=== PATIENT | female | born 1960 | race Caucasian/White ===

== ENCOUNTER 2020-08-12 13:15 | Outpatient (REF) | payer OTHER, SELFPAY ==
--- NOTE | ~2020-08-12 | XR_ITS ---
EXAMINATION: XR ANKLE, RIGHT CLINICAL INFORMATION: Pain COMPARISON: Previous x-ray January 2019 TECHNIQUE: AP, lateral, and mortise views of the right ankle. FINDINGS: There is a transverse fracture through the lateral malleolus. This is similar to January 2019 exam and may represent an ununited old fracture. No other fracture is seen. The ankle mortise is normal. There is lateral soft tissue swelling. There is an ankle joint effusion. There are large calcaneal spurs. XR/XR ankle RT min 3V IMPRESSION: Transverse fracture of the lateral malleolus. This is similar to January 2019 and may represent an ununited fracture. Lateral soft tissue swelling and ankle joint effusion.
== END 2020-08-12 13:16 | disposition home or self-care (01) ==
LOC: HO.HMGCX 13:15
PROVIDERS: PCP Internal Medicine; Visit Provider Hospitalist
DX: M25.571 Pain in right ankle and joints of right foot (principal)
CPT/HCPCS: 73610

== ENCOUNTER 2021-12-23 08:53 | Emergency (ER) | payer OTHER, SELFPAY ==
--- NOTE | ~2021-12-23 | CT_ITS ---
EXAMINATION: CT ABDOMEN AND PELVIS WITHOUT CONTRAST CLINICAL INFORMATION: Right flank pain and hematuria. COMPARISON: Abdomen ultrasound from 09/26/2018. TECHNIQUE: Multidetector volumetric imaging was performed from the superior aspect of the liver through the pubic symphysis. Sagittal and coronal reformatted images were obtained on the technologist's workstation. This CT examination was performed using dose optimization techniques as appropriate, variously including the following: *Automated exposure control *Adjustment of mA and/or kV according to patient size (this includes techniques or standardized protocols for targeted exams where dose is matched to indication/reason for exam; i.e. extremities or head) *Use of iterative reconstruction technique DLP: 569 mGy-cm FINDINGS: LUNG BASES: Normal. No pulmonary consolidation or pleural effusion at either lung base. LIVER: Cirrhotic liver has nodular contour and there is a recanalized paraumbilical vein. No focal liver lesions are identified on this limited noncontrast examination. GALLBLADDER AND BILIARY TREE: Gallbladder is underdistended and contains several stones. No gallbladder wall thickening or pericholecystic fluid. No dilated bile ducts. PANCREAS: Normal for a noncontrast examination. No edema, pancreatic ductal dilatation or mass. SPLEEN: Splenomegaly is present. The spleen measures 16.6 cm craniocaudal. ADRENAL GLANDS: Normal. KIDNEYS AND URETERS: Kidneys are normal in size. 0.2 cm cm calyceal stones in the lower pole of the right kidney. No left-sided renal stones. No hydroureteronephrosis or perinephric edema. BLADDER: A small focus of calcification measuring up to 0.4 cm projects from the right posterior bladder wall at the level of the ureteral orifice. BOWEL AND PERITONEUM: Stomach is unremarkable. No dilated bowel loops. The appendix is normal. Scattered diverticula of the colon without evidence of diverticulitis. No abdominal free fluid or pneumoperitoneum. Minimal haziness of the mesenteric fat in this patient with cirrhosis and varices. ABDOMINAL WALL: Unremarkable. VASCULATURE: Atherosclerotic calcification of the abdominal aorta without aneurysm. No retroperitoneal hematoma. Abdominal varices, including perisplenic varices with spontaneous splenorenal shunt. LYMPH NODES: No pathologic sized lymph nodes in the abdomen or pelvis. No inguinal lymphadenopathy. PELVIC VISCERA: Prostate gland is unremarkable. SKELETAL: Bones are diffusely osteopenic. Degenerative disc disease at L4-L5 (severe loss of disc height, vacuum disc phenomenon, endplate sclerosis and osteophytosis. Mild osteoarthritis of the hips. CT/CT abdomen pelvis wo con IMPRESSION: * Cirrhosis, varices and splenomegaly. * Cholelithiasis without evidence of acute cholecystitis. * Small, 0.2 cm calyceal stones of the lower pole of the right kidney. Also, there is a 0.4 cm stone of the right posterior bladder wall at level of the right ureteral orifice. This could represent a ureterovesical junction stone attempting to pass into the bladder.
[2021-12-23 08:55] VITALS: BP 147/71; PULSE 68; RESP 18; TEMP 37.1; O2SAT 100; BMI 29.7
--- NOTE | 2021-12-23 09:15 | ED.ABDPAIN ---
HPI - Abdominal Pain General Chief Complaint: Urogenital-Female Stated Complaint: back pain, dark red orange urine Time Seen by Provider: 12/23/21 09:09 Source: patient Mode of arrival: ambulatory Limitations: no limitations History of Present Illness MD elicited complaint: flank pain Pertinent past history: kidney stones Onset (ago): week(s) (had episode last week then started again just prior to arrival) Pain Consistency: constant Location: R flank Severity: moderate Quality: stabbing Radiation: RLQ Migration to: no migration Exacerbating factors: nothing Relieving factors: nothing Context: history of similar episodes Associated symptoms: nausea and hematuria Related Data Home Medications Medication Instructions Recorded Confirmed doxycycline hyclate 100 mg tablet 100 mg PO BID 08/12/20 08/12/20 ergocalciferol (vitamin D2) 1,250 1,250 mcg PO QWEEK 08/12/20 08/12/20 mcg (50,000 unit) capsule lisinopril 5 mg tablet 5 mg PO DAILY 08/12/20 08/12/20 nadolol 20 mg tablet 20 mg PO DAILY 08/12/20 08/12/20 Previous Rx's Medication Instructions Recorded ondansetron 4 mg disintegrating 4 mg PO Q8H PRN nausea and 12/23/21 tablet vomiting #20 tabs oxycodone 5 mg tablet 10 mg PO Q6H PRN pain #15 tabs 12/23/21 prednisone 20 mg tablet 20 mg PO DAILY 5 days #5 tabs 12/23/21 tamsulosin 0.4 mg capsule 0.4 mg PO DAILY 5 days #5 caps 12/23/21 Allergies Allergy/AdvReac Type Severity Reaction Status Date / Time vancomycin [VANCOMYCIN] Allergy Intermediate RASH, Unverified 08/12/20 13:08 hives, hives, breathing amoxicillin [AMOXICILLIN] Allergy Unknown UNKNOWN, Unverified 08/12/20 13:08 hives adhesives Allergy Unknown rash Uncoded 08/12/20 13:08 amoxicillin Allergy Unknown hives Uncoded 08/12/20 13:08 Latex Allergy Unknown rash Uncoded 08/12/20 13:08 Review of Systems Review of Systems Constitutional : No Fever, No Chills ENT/Mouth : No sore throat Eyes: No Eye Pain, No Swelling, No Redness Cardiovascular : No Chest Pain, No SOB Respiratory : No Cough, No Sputum, No Wheezing Gastrointestinal : positive Nausea, no Vomiting, No Diarrhea, positive abdominal pain Genitourinary : no Dysuria, no urinary frequency, positive Hematuria, positive Flank Pain, positive hesitancy Musculoskeletal : No joint pain, No Myalgias Skin : No Skin Lesions, No rash Neuro : No Weakness, No Numbness, No Headache Psych : No Anxiety/Panic, No Depression Heme/Lymph: No Bruising, No Lymphadenopathy Endocrine : No Polyuria, No Polydipsia All other systems reviewed and are negative [facility] Past Medical History Attestation statement: The following information was validated with the patient. Medical History (Updated 12/23/21 @ 11:28 by Sabrina Abel DO) Cirrhosis Diabetes Hypertension Kidney stones Surgical History (Updated 12/23/21 @ 09:40 by Sabrina Abel DO) H/O: hysterectomy Hx of cholecystectomy Social History Social History (Updated 12/23/21 @ 09:39 by Sabrina Abel DO) Alcohol intake: never Patient Tobacco Use Status: Never used Tobacco Advance Directives: No Advance Directives Information Provided: No Physical Exam ED Vital Signs: Vital Signs - 24 hr 12/23/21 08:55 12/23/21 10:15 Temperature 98.7 F Pulse Rate 68 67 Respiratory Rate 18 16 Blood Pressure 147/71 H 135/75 Pulse Oximetry 100 99 Oxygen Delivery Method Room Air Room Air BMI result Body Mass Index 29.7 Appearance: Alert. Oriented X3. No acute distress. Eyes: Pupils equal, round and reactive to light. ENT: Pharynx normal. Neck: Normal inspection. Neck supple. CVS: Normal heart rate and rhythm. Pulses normal. Respiratory: No respiratory distress. Breath sounds normal. Abdomen: Soft and mild R sided CVA ttp Skin: Skin warm and dry. Normal skin color. Normal skin turgor. Extremities: No lower extremity edema. No calf ttp Neuro: Oriented X 3. No motor deficit. No sensory deficit. Course Course Course Narrative: R sided 4mm UVJ stone no vomiting, pain well controlled, will start on steroids 20mg, flomax, PO pain medications anticipate she will pass this at home Cr normal MDM - Abdominal Pain MDM Narrative Medical decision making narrative: 61 yo female with hx of RUSH cirrhosis, DM, HTN, kidney stones but not for 10 years comes in with R flank pain and hematuria at this time feels like kidney stones to patient will obtain labs, UA, IV morphine for pain, CT scan for renal colic. Dispo per results and findings. Lab Data Result diagrams: 12/23/21 09:44 12/23/21 09:44 Labs: Lab Results 12/23/21 12/23/21 12/23/21 Range/Units 09:44 09:44 09:44 WBC 3.1 L (4.8-10.8) X10*3/uL RBC 4.24 (4.20-5.50) X10*6/uL Hgb 13.1 (12.0-16.0) g/dl Hct 37.4 (37.0-47.0) % MCV 88.2 (80.0-98.0) fL MCH 30.9 (27.0-33.0) pg MCHC 35.0 (31.0-35.0) g/dl RDW 13.9 (11.0-16.0) % Plt Count 63 L (160-400) X10*3/uL MPV 10.5 (9.4-12.3) fL Immature Gran % (Auto) 0.3 (0.0-0.4) % Neut % (Auto) 56.3 (45-73) % Lymph % (Auto) 28.4 (20-40) % [place] % (Auto) 10.1 (2-11) % Eos % (Auto) 3.9 (0-4) % Baso % (Auto) 1.0 (0-2) % Lymph # (Auto) 0.9 L (1.2-4.9) X10*3/uL [place] # (Auto) 0.3 (0.1-1.2) X10*3/uL Eos # (Auto) 0.1 (0.0-0.4) X10*3/uL Baso # (Auto) 0.0 (0.0-0.2) X10*3/uL Abs Immat Gran (auto) 0.01 (0.00-0.03) X10*3/uL Absolute Neuts (auto) 1.7 L (2.0-8.3) x10*3/uL Absolute Nucleated RBC 0.000 (0.0-0.012) X10*3/uL Nucleated RBC % (auto) 0.0 (0.0-0.2) /100WBC Sodium 137 (135-145) mmol/L Potassium 3.9 (3.3-5.1) mmol/L Chloride 104 (96-108) mmol/L Carbon Dioxide 26 (22-29) mmol/L Anion Gap 11 L (12-20) BUN 11 (9-16) mg/dL Creatinine 0.72 (0.5-1.4) mg/dL Estim Creat Clear Calc 92.5 Estimated GFR > 60 Random Glucose 214 H (60-115) mg/dL Calcium 8.9 (8.4-10.2) mg/dL Magnesium 1.8 (1.6-2.6) mg/dL Total Bilirubin 2.0 H (0.0-1.0) mg/dL Direct Bilirubin 0.8 H (0.0-0.5) mg/dL AST 36 H (5-31) U/L ALT 19 (0-31) U/L Alkaline Phosphatase 84 (39-117) U/L Total Protein 7.2 (6.5-8.0) g/dL Albumin 3.8 (3.5-5.0) g/dL Lipase 83 H (8-78) U/L Urine Color YELLOW Urine Appearance HAZY Urine pH 6.0 (5.0-8.0) Ur Specific Sadler 1.020 (1.005-1.025) Urine Protein NEG (NEG-TRACE) MG/DL Urine Glucose (UA) NEG (NEG) MG/DL Urine Ketones NEG (NEG) MG/DL Urine Blood 3+ H (NEG) Urine Nitrite NEG (NEG) Ur Leukocyte Esterase NEG (NEG) Urine RBC 10-14 H (0) /HPF Urine WBC 0 (0-4) /HPF Ur Squamous Epith Cells 3+ /LPF Calcium Oxalate Crystal TRACE /LPF Urine Bacteria NONE /LPF Urine Mucus 1+ /LPF Urine Yeast TRACE /HPF Discharge Plan Discharge Clinical Impression: Ureterolithiasis Patient Disposition: Home, Self-Care Instructions: Ureteral Stones (ED) Additional Instructions: return to ED for any worsening symptoms or concerns bili 2.0 today , AST 36 platelets 63 MAKE SURE YOUR DOCTOR MONITORS THESE VALUES WITH YOUR CIRRHOSIS *? Cirrhosis, varices and splenomegaly. *? Cholelithiasis without evidence of acute cholecystitis. *? Small, 0.2 cm calyceal stones of the lower pole of the right kidney. Also, there is a 0.4 cm stone of the right posterior bladder wall at level of the right ureteral orifice. This could represent a ureterovesical junction stone attempting to pass into the bladder. Prescriptions: New prednisone 20 mg tablet 20 mg PO DAILY 5 Days Qty: 5 0RF tamsulosin 0.4 mg capsule 0.4 mg PO DAILY 5 Days Qty: 5 0RF ondansetron 4 mg tablet,disintegrating 4 mg PO Q8H PRN (Reason: nausea and vomiting) Qty: 20 0RF oxycodone 5 mg tablet 10 mg PO Q6H PRN (Reason: pain) Qty: 15 0RF Rx Instructions: Partial Fill upon patient request. can take 1-2 tabs every 6 hours for pain No Action lisinopril 5 mg tablet 5 mg PO DAILY nadolol 20 mg tablet 20 mg PO DAILY doxycycline hyclate 100 mg tablet 100 mg PO BID ergocalciferol (vitamin D2) 1,250 mcg (50,000 unit) capsule 1,250 mcg PO QWEEK Referrals: Gonzalo Currie MD [Physician] - 5 days (if not better) Stand Alone Forms: Work/School Release
[2021-12-23 09:49] LABS: MANUAL DIFF FLAG NO
[2021-12-23 09:50] LABS: Appearance Urine HAZY; Color Urine YELLOW; Glucose Urine UA NEG (NEG); Leukocyte Esterase Urine NEG (NEG); Nitrite Urine NEG (NEG); UACC Culture Trigger NO; Urine Blood 3+ (NEG); Urine Ketones NEG (NEG); Urine Protein NEG (NEG-TRACE)
[2021-12-23 09:53] LABS: Eosinophils Absolute Auto 0.1 X10*3/uL (0.0-0.4); Eosinophils Percent Auto 3.9 % (0-4); Hematocrit 37.4 % (37.0-47.0); Hemoglobin 13.1 g/dl (12.0-16.0); Imm Gran Abs Auto 0.01 X10*3/uL (0.00-0.03); Imm Gran Pct Auto 0.3 % (0.0-0.4); Lymphocytes Absolute Auto 0.9 X10*3/uL (1.2-4.9); Lymphocytes Percent Auto 28.4 % (20-40); Mean Corpuscular Hemoglobin 30.9 pg (27.0-33.0); Mean Corpuscular Volume 88.2 fL (80.0-98.0); Mean Platelet Volume 10.5 fL (9.4-12.3); Monocytes Absolute Auto 0.3 X10*3/uL (0.1-1.2); Monocytes Percent Auto 10.1 % (2-11); Neutrophils Absolute Auto 1.7 x10*3/uL (2.0-8.3); Neutrophils Percent Auto 56.3 % (45-73); Red Blood Count 4.24 X10*6/uL (4.20-5.50); Red Cell Distribution Width 13.9 % (11.0-16.0); White Blood Count 3.1 X10*3/uL (4.8-10.8)
[2021-12-23 10:02] LABS: Calcium Oxalate Crystals Urine TRACE /LPF; Mucus Urine 1+ /LPF; Squamous Epithelial Cell Urine 3+ /LPF; WBC Urine 0 /HPF (0-4)
[2021-12-23] MEDS: ondansetron HCL 4 MG/2 ML VIAL IVPUSH (10:04)
[2021-12-23] MEDS: Morphine Sulfate 4 MG/ML CARTRIDGE IVPUSH (10:04)
[2021-12-23] MEDS: 0.9 % Sodium Chloride 1,000 ML 999 ML IVCONT (10:08)
[2021-12-23 10:15] VITALS: BP 135/75; PULSE 67; RESP 16; O2SAT 99
[2021-12-23 10:15] LABS: Alanine Aminotransferase 19 U/L (0-31); Albumin Level 3.8 g/dL (3.5-5.0); Alkaline Phosphatase 84 U/L (39-117); Anion Gap 11 (12-20); Aspartate Amino Transferase 36 U/L (5-31); Bilirubin Direct 0.8 mg/dL (0.0-0.5); Blood Urea Nitrogen 11 mg/dL (9-16); Calcium 8.9 mg/dL (8.4-10.2); Carbon Dioxide 26 mmol/L (22-29); Chloride 104 mmol/L (96-108); Creatinine Clr Calc Pharmacy 92.5; Estimated Glomerular Filt Rate > 60; Glucose Random 214 mg/dL (60-115); Lipase 83 U/L (8-78); Magnesium 1.8 mg/dL (1.6-2.6); Platelet Count 63 X10*3/uL (160-400); Potassium 3.9 mmol/L (3.3-5.1); Sodium 137 mmol/L (135-145); Total Protein 7.2 g/dL (6.5-8.0)
--- NOTE | 2021-12-23 10:34 | PC.NURSE ---
Pt resting comfortably. 20 gauge IV started in left antecubital. Meds given as ordered. Waiting on test results and patients needs are being met.
[2021-12-23] MEDS: HYDROmorphone HCl 1 MG/ML SYRINGE IVPUSH (10:44)
[2021-12-23] MEDS: Tamsulosin HCL 0.4 MG CAPSULE PO (11:39)
== END 2021-12-23 12:07 | disposition home or self-care (01) ==
PROVIDERS: Emergency Provider Emergency Medicine; PCP Internal Medicine
DX: N20.1 Calculus of ureter (principal); M54.50 Low back pain, unspecified; R31.9 Hematuria, unspecified; R10.31 Right lower quadrant pain; Z79.899 Other long term (current) drug therapy
CPT/HCPCS: 36415; 74176; 80048; 80076; 81001; 83690; 83735; 85025; 96361; 96374; 96375; 99284; J1170; J2270; J2405

== ENCOUNTER 2025-04-26 07:51 | Outpatient (AMB) | payer MEDICARE, SELFPAY ==
--- OUTSIDE RECORDS SUMMARY | 2022-03-24 11:03 | XMS_ITS | Encounter Summary ---
Author Organization [facility] Address [address] [place] [phone] Phone Care Team Providers Care Hr Manager Name Role Phone Chaparro Alvarez MD Primary Care Provider [phone] Adam Sánchez MD Unavailable [phone] Jose Daniel Castellanos MD Unavailable [phone] Encounter Details Date Type Department Care Team (Late st Contact Info) Description 03/24/2022 11:03 AM EDT Hospital Encounter [facility] [address] [place] [address] Cristiana Mcdonald FNP [address] [place] [address] [email or web address] Social History Tobacco Use Types Packs/Day Years [...] high school, GED, job training, learning the Urdu language, technical skills, or developing parenting skills)? [...] Description 05/21/2025 11:00 AM EST Office Visit [facility] Internal Medicine [address] [place] [address] Chaparro Alvarez MD [address] [place] [address] [email or web address] documented as of this encounter Procedures Procedure [...] IMPRESSION: No displaced rib fracture. Cristiana Mcdonald DRILLER'S ASSISTANT IMG XR CHEST Final Resul t documented in this encounter Visit Diagnoses Not on filedocumented in this encounter Additional Health Concerns Infection Onset Date Last Indicated Resolved Time MRSA 03/21/2020 12/25/2020 12/25/2022 1:22 AM EDT Assessment Noted Time PHQ-2 Depression Total Score: 0 08/22/19 10:10 AM EST documented as of this encounter Care Teams Hr Manager Relationship Specialty Start Date End Date Chaparro Alvarez MD [address] [place] [address] [email or web address] PCP - General Internal Medicine 10/06/19 03/29/25 Adam Sánchez MD [address] [place] [phone] Internal Medicine 04/18/20 08/30/22 Jose Daniel Castellanos MD [address] [place] [id number] [email or web address] Otolaryngology 04/18/20 documented as of this encounter Additional Source Comments The information contained in this document represents components of the legal health record. It is not the complete legal health record.[facility]
--- NOTE | 2025-04-26 07:53 | MHC.PC.OV ---
Vital Signs 04/26/25 08:03 Height 5 ft 7.5 in Weight 175 lb BMI 27.0 BP 111/54 L Blood Pressure Location Lt brachial Position Sitting Respiration 16 Pulse 67 Pulse Source Pulse Oximeter Temp 97.5 F Temp Source Oral Pulse Oximetry (%) 100 Oxygen Delivery Method Room Air Intake Visit Reasons: CPE Intake Note: patient here for new patient visit requesting a CPE Conference Specialist Required: No Is last menstrual period known: No Post menopausal: No Patient : No Allergies vancomycin (VANCOMYCIN) Allergy (Intermediate, Unverified 04/26/25 08:21) RASH, hives, hives, breathing amoxicillin (AMOXICILLIN) Allergy (Unknown, Unverified 04/26/25 08:21) UNKNOWN, hives adhesives Allergy (Unknown, Uncoded 04/26/25 08:21) rash amoxicillin Allergy (Unknown, Uncoded 04/26/25 08:21) hives Latex Allergy (Unknown, Uncoded 04/26/25 08:21) rash Medication List - Last Reviewed 04/26/25 by SUDHIR Sherman syvpptwzfp-upsebyczxufra-lpbu 50-325-40 mg 1 tab PO Q6H PRN carvedilol 6.25 mg PO BID lisinopril 5 mg PO DAILY lorazepam 0.5 - 1 mg PO metformin ER 1,000 mg PO QPM onabotulinumtoxinA (Botox) units subcut Tobacco use date assessed: 04/26/25 Fall risk assessment: No Falls in past year Last assessed Fall Risk: 04/26/25 Dental Screening Dental Screen Date: 04/26/25 Did you have a dental visit in the last 12 months?: Yes Did you have a dental problem in the last 6 months where you did not have access to dental care?: No Was dental information given to patient?: Patient has dentist HPI HPI Comments History of Present Illness Details 65 y/o F with cirrhosis, varices, splenomegaly, HTN, DM2, nephrolithiasis, CAD, osteopenia, r knee OA SurgHx: hysterectomy, christy, 3 sinus surgeries to fix chronic sinusitis FHx: Dad alive SocHx: , 2 children, and 2 grandchildren, Retired Health Maintenance: See scanned preventative medicine assessment with personalized health plan and screening schedule. Colon: Mammo DEXA PAP Vaccines: UTD on all Specialists: [facility] GI visits q6mo with imaging Dr Gonz[facility] Be[facility] History of Present Illness The patient is a 65-year-old female presenting with the establishment of care, evaluation of edema, and fatigue. Previous PCP Dr Alvarez, limited MR avail and reviewed Edema: - Recent leg swelling for 3-4 weeks. - Predominantly lower limbs, left worse. - Prior connection to liver disease. Worse on the left Better since onset w/o intervention Denies Sob or Chest pain Next GI appt 05/23/25 Fatigue: - Constant tiredness, worsens with activity. - No snoring or sleep apnea. - Non-refreshing sleep. - High activity and stress load. Migraine: - Managed with Botox and Fioricet. - Multiple past medications. Nonalcoholic Fatty Liver Disease: - Managed biannually with Dr. Sánchez. - No current pain. Chronic Sinusitis: - Past surgeries, discontinued nasal rinse. underwent 3 surgeries; ff'd by [facility]. Due for f/u appt. Missed last week appt. Esophageal Varices: - Found on endoscopy, treated with carvedilol. Hypertension: - Controlled with lisinopril Diabetes Mellitus: - A1c 5.2%, on metformin. Possible Osteoarthritis, R knee : - Relief from cortisone previously, complaints of knee pain. Review of Systems - Cardiovascular: Reports swelling in legs. - Respiratory: Denies shortness of breath. - Gastrointestinal: Denies abdominal pain. - Neurological: Reports fatigue, denies palpitations, denies snoring. - Musculoskeletal: Reports knee pain. - HEENT: Reports chronic sinusitis, ear fluid. - Endocrine: Denies thyroid issues. - General: Reports tiredness, denies feeling refreshed after sleeping. Physical Exam Awake alert NAD Scleras nonicteric bilat 2/6 murmur, irregular LS CTAB Abd soft, nontender Edema BLE +1 bilat, worse on the L, + PP Verrucous growth L knee Mood and affect appropriate Diagnostic results EKG NSR with PVC prolonged QT/QtC 484/507ms Labs from today show WBC of 3.7, RBC 4.02, platelet count 71, chloride 111, anion gap of 8, BUN 8 creatinine 0.54, normal Mag and phos, total bilirubin 2.5, AST 32, total protein 6.4, albumin 3.2, LDL 108, 12 normal, vitamin-D 18.9 The anion gap is falsely low given her low albumin. Discussion Notes During this visit, we discussed the patient's presenting symptoms of edema and fatigue. I explained the potential causes of edema, particularly given her history of cirrhosis, which can cause peripheral swelling. We discussed the need for a possible diuretic due to the leg swelling but emphasized getting an echocardiogram, since liver and heart issues can interconnect, affecting the fluid status. I also discussed the potential consideration of sleep apnea contributing to her fatigue and proposed a home sleep study to assess sleep quality. We emphasized the importance of blood tests to check CBC, iron levels, and thyroid function to rule out anemia or other metabolic concerns. We agreed on obtaining a dermatological evaluation for skin lesions she was concerned about. We reviewed current management plans for her listed chronic conditions, ensured her comfort with medication regimens, and confirmed she had no immediate medication refill needs; however, updates in prescription management were made under my name for future referencing convenience. Follow-up and testing plans were acknowledged, pending results. Patient was given time to ask questions. All questions were answered to their satisfaction. Assessment and Plan 1. Edema - Spironoalactone 25mg QD x 14 days w/ repeat labs in 2 weeks - Echocardiogram ordered. 2. Fatigue - CBC, iron, thyroid tests ordered. - Home sleep study recommended. 3. Cirrhosis/NAFLD - Continue liver management with regular scans. I have requested GI records 4. Chronic Sinusitis - ENT follow-up; 5. Migraine - Continue current treatment. 6. Esophageal Varices - Maintain carvedilol treatment. 7. Hypertension - Continue lisinopril. 8. Type 2 Diabetes Mellitus - Maintain metformin. Patient Instructions - Complete labs as scheduled. - Attend follow-up for echocardiogram. - Await call to schedule the sleep study and follow instructions of the test. - Contact your primary care office if symptoms worsen. - Continue prescribed medications as discussed. - RTO in 2 weeks for close fu, labs to be done the day before. If chest pain or worsening of condition, advised to seek care in the ED. 1445 Pt called after the visit w the labs and the treatment plan. All questions answered. Consent Patient was informed and verbally consented to the use of an ambient scribe for clinic note documentation during this visit. Total time spent caring for the patient today was 60 minutes. This includes time spent before the visit reviewing the chart, time spent during the visit, and time spent after the visit on documentation, reviewing laboratory results, diagnostic imaging, medications, performing a medically necessary evaluation, counseling on diagnoses, care coordination, ordering appropriate tests, ordering appropriate medications, review of tests performed by other providers, reporting test results with the patient, communication with other healthcare providers. [facility] Medical History (Updated 04/26/25 @ 09:10 by Pamela Casper [facility]) Cirrhosis Diabetes Hx of migraine headaches Hypertension Kidney stones Osteoporosis Surgical History (Updated 04/26/25 @ 08:09 by SUDHIR Sherman) H/O: hysterectomy History of carpal tunnel surgery of left wrist History of carpal tunnel surgery of right wrist Hx of cholecystectomy Family History (Updated 04/26/25 @ 08:11 by SUDHIR Sherman) Mother Breast cancer Sister Breast cancer Social History (Updated 04/26/25 @ 08:03 by SUDHIR Sherman) Housing: Apartment Alcohol intake: never Patient Tobacco Use Status: Never used Tobacco e-Cigarette/Vaping Use: Never Used Second Hand Smoke Exposure: No service: No Current occupational status: retired Current occupational exposures/hazards: No Cognitive needs: No Hearing needs: No Vision needs: Yes Questionnaire PHQ-9 Over the last 2 weeks, how often have you been bothered by any of the following problems? 1. Little interest or pleasure in doing things: not at all 2. Feeling down, depressed, or hopeless: not at all 3. Trouble falling or staying asleep, or sleeping too much: not at all 4. Feeling tired or having little energy: not at all 5. Poor appetite or overeating: not at all 6. Feeling bad about yourself - or that you are a failure or have let yourself or your family down: not at all 7. Trouble concentrating on things, such as reading the newspaper or watching television: not at all 8. Moving or speaking so slowly that other people could have noticed. Or the opposite - being so fidgety or restless that you have been moving around a lot more than usual: not at all 9. Thoughts that you would be better off or of hurting yourself in some way: not at all Total score: 0 Depression Screening Interpretation: Negative Depression Screening Done: Yes 00655 - PHQ-9 Billing: Yes Source: Developed by Drs. Jose Daniel Castorena, Joshua Covington and colleagues, with an educational soham from [employer]. Thrive Questionnaire Date Thrive assessed: 04/26/25 I am a: Patient What is your living situation today?: I have a steady place to live Within the past 12 months, did the food you bought not last and you didn't have the money to get more?: Never true Within the past 12 months, did you worry whether your food would run out before you got money to buy more?: Never true Do you have trouble paying for medicines?: No Do you have trouble getting transportation to medical appointments?: No Do you have trouble paying your heating and electricity bill?: No Do you have trouble taking care of your child, family member or friend?: No Do you have trouble with day-to-day activities such as bathing, preparing meals, shopping, managing finances, etc.?: No Are you currently unemployed and looking for a job?: No Are you interested in more education?: No Please select the resources that you would like help with: None Currently or been in a relationship where the following occur: No concerns reported THRIVE Score: 0 AUDIT C Alcohol Use Questionnaire (AUDIT-C) 1. How often do you have a drink containing alcohol?: Never 3. How often do you have six or more drinks on one occasion?: Never Total Score: 0 Score Reviewed/Action Taken: Yes SELAM-7 AMB Questionnaire SELAM-7 Date SELAM - 7 assessed: 04/26/25 Feeling nervous, anxious, or on edge: 0 = Not at all Not being able to stop or control worryin = Not at all Worrying too much about different things: 0 = Not at all Trouble relaxin = Not at all Being so restless that it is hard to sit still: 0 = Not at all Becoming easily annoyed or irritable: 0 = Not at all Feeling afraid as if something awful might happen: 0 = Not at all Total SELAM-7 score (0-4 normal; 5-9 mild; 10-14 moderate; 15-21 severe): 0 Source: Developed by Natalya Snyder Kurt Kroenke and colleagues, with an educational soham from [employer]. SELAM-7 Assessment Billing SELAM-7 Assessment Tool: SELAM-7 Assessment 38893 Physical exam (Primary Care) Vital Signs: Last Vital Signs Temp 97.5 F 04/26/25 08:03 Pulse 67 04/26/25 08:03 Resp 16 04/26/25 08:03 BP 111/54 L 04/26/25 08:03 Pulse Ox 100 04/26/25 08:03 Oxygen Delivery Method Room Air 04/26/25 08:03 BMI result Body Mass Index 27.0 Tobacco/Smoking Status: Tobacco use Status Tobacco use date assessed 04/26/25 04/26/25 08:03 Patient Tobacco Use Status Never used Tobacco 04/26/25 08:03 e-Cigarette/Vaping Use Never Used 04/26/25 08:03 PHQ-9: PHQ-9 Score PHQ-9: Total score 0 04/26/25 09:17 Depression Screening Interpretation: Negative Thrive Assessment: Date of Thrive Assessment Date Thrive assessed 04/26/25 04/26/25 07:56 Currently or been in a relationship where the following occur: No concerns reported Office Procedures EKG 82021-Ogbbckmxblwmnjqrh, Complete Results AMB Hemoglobin A1c AMB Hemoglobin A1c 5.1 % Last Edit by SUDHIR Sherman on 04/26/25 08:32 Results Reviewed Results Reviewed: Laboratory Last Values Hgb A1c (Clinic) 5.1 % (4.0-6.0) 04/26/25 08:30 Coding Level of Care Code New Pt Level 5 (35583) Complex EM visit Add On G2211 Diagnoses Encounter to establish care Z76.89 Type 2 diabetes mellitus without complication, without long-term current use of insulin E11.9 Diabetes mellitus complication status: without complication Diabetes mellitus jail insulin use: without jail use Heart murmur R01.1 Heart palpitations R00.2 Cirrhosis of liver without ascites, unspecified hepatic cirrhosis type K74.60 Ascites presence: without ascites Hepatic cirrhosis type: unspecified hepatic cirrhosis Swelling of both lower extremities M79.89 Fatigue R53.83 Hypersomnia G47.10 CPT Codes EKG - CPT: 02837-Iwehnqkxpcifpbfnr, Complete ([id number]) Additional Codes SELAM-7 Assessment Billing - SELAM-7 Assessment Tool: SELAM-7 Assessment 21557 ([id number]) PHQ-9 - 18310 - PHQ-9 Billing: Yes ([id number]) Assessment & Plan Assessment & Plan (1) Encounter to establish care: Code(s): Z76.89 - Persons encountering health services in other specified circumstances (2) DM2 (diabetes mellitus, type 2): Code(s): E11.9 - Type 2 diabetes mellitus without complications Category: Medical Qualifiers: Diabetes mellitus complication status: without complication Diabetes mellitus morals squad police officer insulin use: without morals squad police officer use Qualified Code(s): E11.9 - Type 2 diabetes mellitus without complications (3) Heart murmur: Code(s): R01.1 - Cardiac murmur, unspecified Category: Medical (4) Heart palpitations: Code(s): R00.2 - Palpitations Category: Medical (5) Cirrhosis: Comment: RUSH Code(s): K74.60 - Unspecified cirrhosis of liver Category: Medical Qualifiers: Ascites presence: without ascites Hepatic cirrhosis type: unspecified hepatic cirrhosis Qualified Code(s): K74.60 - Unspecified cirrhosis of liver (6) Swelling of both lower extremities: Code(s): M79.89 - Other specified soft tissue disorders Category: Medical (7) Fatigue: Code(s): R53.83 - Other fatigue Category: Medical (8) Hypersomnia: Code(s): G47.10 - Hypersomnia, unspecified Category: Medical Plan . Orders: Orders Vitamin B12 and Folate Today E11.9 - Type 2 diabetes mellitus without complications, I25.10 - Atherosclerotic heart disease of upper [place] coronary artery without angina pectoris, I86.8 - Varicose veins of other specified sites, K74.60 - Unspecified cirrhosis of liver, M85.80 - Other specified disorders of bone density and structure, unspecified site Magnesium Today R94.31 - Abnormal electrocardiogram [ECG] [EKG] Phosphorus Today R94.31 - Abnormal electrocardiogram [ECG] [EKG] AMB Hemoglobin A1c Today E11.9 - Type 2 diabetes mellitus without complications Complete Blood Count no Diff Today E11.9 - Type 2 diabetes mellitus without complications, I25.10 - Atherosclerotic heart disease of [place] coronary artery without angina pectoris, I86.8 - Varicose veins of other specified sites, K74.60 - Unspecified cirrhosis of liver, M85.80 - Other specified disorders of bone density and structure, unspecified site Comprehensive Met. Panel Today E11.9 - Type 2 diabetes mellitus without complications, I25.10 - Atherosclerotic heart disease of [place] coronary artery without angina pectoris, I86.8 - Varicose veins of other specified sites, K74.60 - Unspecified cirrhosis of liver, M85.80 - Other specified disorders of bone density and structure, unspecified site Lipid Panel Today E11.9 - Type 2 diabetes mellitus without complications, I25.10 - Atherosclerotic heart disease of [place] coronary artery without angina pectoris, I86.8 - Varicose veins of other specified sites, K74.60 - Unspecified cirrhosis of liver, M85.80 - Other specified disorders of bone density and structure, unspecified site Microalbumin, Random (w Creat) Today E11.9 - Type 2 diabetes mellitus without complications, I25.10 - Atherosclerotic heart disease of [place] coronary artery without angina pectoris, I86.8 - Varicose veins of other specified sites, K74.60 - Unspecified cirrhosis of liver, M85.80 - Other specified disorders of bone density and structure, unspecified site TSH reflex Free T4 Today E11.9 - Type 2 diabetes mellitus without complications, I25.10 - Atherosclerotic heart disease of [place] coronary artery without angina pectoris, I86.8 - Varicose veins of other specified sites, K74.60 - Unspecified cirrhosis of liver, M85.80 - Other specified disorders of bone density and structure, unspecified site Vitamin D 25-OH Total Today E11.9 - Type 2 diabetes mellitus without complications, I25.10 - Atherosclerotic heart disease of [place] coronary artery without angina pectoris, I86.8 - Varicose veins of other specified sites, K74.60 - Unspecified cirrhosis of liver, M85.80 - Other specified disorders of bone density and structure, unspecified site CA echo transthoracic complete Today M79.89 - Other specified soft tissue disorders Ferritin Today R53.83 - Other fatigue IRON PROFILE Today R53.83 - Other fatigue RT home sleep study Today G47.10 - Hypersomnia, unspecified, R06.83 - Snoring Medications: New metformin ER 1,000 mg (2 x 500 mg) PO QPM 180 tabs 2RF lisinopril 5 mg PO DAILY 90 tabs 2RF Patient Instructions: Walk-In Care (Urgent Care): We Make it Easy Walk-in for urgent medical issues such as: ? Seasonal Allergies ? Insect Bites ? Cough ? Diarrhea ? Acute Asthma Attacks ? Back, Knee or Joint Pain ? Ear Infection ? Fever without a Rash ? Headaches ? Nausea ? Tulsita Eye, Rash or Skin Irritation ? Sore Throat ? Sports Physicals ? Vomiting Most insurances are accepted. Patients do not need to be part of the [facility] to seek care at the walk-in clinic. Locations [address] [place] [address] Open Wednesday through Wednesday 8am-5pm *Hours may vary due to staffing availability. To confirm Walk-In Care hours please call. [address] [facility] , [place] [address] ? [phone] [facility] in [place] provides services to ages 18 and over. Open Wednesday-Wednesday: 7 a.m. to 5 p.m. and Wednesday: 9 a.m. to 3 p.m.* *Hours may vary due to staffing availability. To confirm Walk-In Care hours in [place], please call [phone]. [address] [place] [address] ? [phone] [facility] in [place] provides services to ages 12 and over. Open Wednesday-Wednesday: 8 a.m. to 5 p.m. Hours may vary due to staffing availability. To confirm Walk-In Care hours in [place], please call [phone]. LABORATORY SERVICES: [facility] Lab ? Primary Location [address] [place] [address] Wednesday through Wednesday 6:00 AM ? 5:00 PM Wednesday 7:00 AM ? 11:00 AM* [phone] The [facility] Lab is centrally located near the front entrance of the [facility] for easy outpatient access. Convenient parking is provided for outpatients. *Hours may vary due to staffing availability. To confirm Laboratory hours for any location, please call [phone]. Offsite Location For your convenience, we offer offsite laboratory draw stations at the following locations: [address] [place] [address] ? [facility] [address], [address] Wednesday through Wednesday 7:30 AM ? 1:00 PM* [phone] *Hours may vary due to staffing availability. To confirm Laboratory hours for any location, please call [phone]. [place] ? [address] Wednesday through Wednesday 6:00 AM ? 3:30 PM* Wednesday 6:30 AM ? 3 PM* [phone] *Hours may vary due to staffing availability. To confirm Laboratory hours for any location, please call [phone]. [address] [facility] Wednesday through Wednesday 7:30 AM ? 4:00 PM* [phone] *Hours may vary due to staffing availability. To confirm Laboratory hours for any location, please call [phone]. [address] [facility] Wednesday through 9:00 AM ? 4:00 PM* *Hours may vary due to staffing availability. To confirm Laboratory hours for any location, please call [phone]. Appointments are not necessary. Walk-ins are welcome. Like all the departments throughout the [facility], our Lab undergoes frequent reviews to ensure the quality and accuracy of test results, and our staff takes special pride in its status as a nationally accredited facility. Patient Portal: [facility] ONE PATIENT. ONE RECORD. BETTER CARE. [facility] has a fully integrated, cutting-edge mobile electronic health information system that has revolutionized the way we care for our patients and manage our organization. This system improves communication and coordination enabling us to provide safe, higher-quality care, and an overall positive experience for staff and patients. Our first priority, as always, is to deliver the highest quality care possible. The system is running in the background supporting that priority. This portal is for all [facility] services and practices. If you are experiencing any technical difficulties with enrolling or logging into the Patient Portal please complete the [facility] Patient Portal Technical Support Form. [facility] now offers a new secure on-line interactive tool for patients to review their health information ? ?Patient Portal. This interactive web portal will enable patients and their families to take an active role in their care by providing easy, secure access to their health information via the internet. The Patient Portal provides patients with instant access to their health information, including laboratory results, medications, allergies, demographic information, visit history, and more. In addition to managing their own care, parents and health care proxies with authorized consent will appreciate the ability to access the records of those individuals for whom they provide care. Please note: if you wish to gain access (Proxy) to another patient?s portal, you will be required to come to the Medical Records Department in person at [facility]. Both the patient giving proxy access and the proxy will need to provide photo identification and complete the appropriate authorization. The Patient Portal also allows track their appointments online. The [facility] Patient Portal also saves patients time by allowing them to submit updates to their demographic and contact information prior to their visits. Portal email notifications will also alert patients to any new activity on their portal, such as test results and new appointments. In order to initially enroll in the [facility] Patient Portal, you will need to enter some required information including the following: your [facility] Medical Record number your personal home email address name date of Please note: In order to enroll in the [facility] Patient Portal, we need to have your email address on file in your electronic medical record. ?The email address needs to be specific for one person (yourself) in order for your Portal enrollment to be successful. ?You can update your email address in person with our Registration staff when you are registering for a hospital visit. ?Otherwise, you will need to come to the Health Information Management (Medical Records) Department at [facility]. ?We are open from Wednesday ? Wednesday from 7:30 a.m. ? 4:30 p.m. ?You will be required to present a photo id. Once you have successfully enrolled in the Patient Portal, you will receive a one-time user id and password for the Portal, sent to your email address. ?This will allow you to log into the Patient Portal within 99 hrs and reset your own logon id and password, and define personal security questions. ?Once your permanent login and password have been set, you can log into the [facility] Patient Portal at any time via the blue button above or from the Portal Logon button on any page of the [facility] website. [facility] and [facility] encourage all of our patients to enroll in Patient Portal as it presents a valuable opportunity for patients and their families to actively participate in their care and stay healthy Welcome to [facility]. ?We look forward to working with you.
--- OUTSIDE RECORDS SUMMARY | 2025-04-26 07:54 | XMS_ITS | Encounter Summary ---
Author Organization [facility] Address [address] [place] [address] Phone Care Team Providers Care Director Of Sustainability Name Role Phone Chaparro Alvarez MD Primary Care Provider Adam Sánchez MD Unavailable [phone] Jose Daniel Castellanos MD Unavailable [phone] Adam Sánchez MD Unavailable [phone] Encounter Details Date Type Department Care Team (Late st Contact Info) Description 10/08/2020 Procedure Pass [facility] [address] [place] [address] Social History Tobacco Use Types Packs/Day Years Used Date Smoking Tobacco: Never Smokeless Tobacco: Never Alcohol Use Standard Drinks/Week Comments No 0 (1 standard drink = 0.6 oz pur e alcohol) Comments No Sex and Gender Information Value [...] Description 05/21/2025 11:00 AM EST Office Visit [facility] Internal Medicine [address] [place] [address] Chaparro Alvarez MD [address] [place] [address] documented as of this encounter Visit Diagnoses Not on filedocumented in this encounter Additional Health Concerns Infection Onset Date Last Indicated Resolved Time MRSA 03/21/2020 12/25/2020 12/25/2022 1:22 AM EDT Assessment Noted Time PHQ-2 Depression Total Score: 0 08/16/19 21 8:10 AM EST documented as of this encounter Care Teams Director Of Sustainability Relationship Specialty Start Date End Date Chaparro Alvarez MD [address] [place] [address] PCP - General Internal Medicine 10/06/19 03/29/25 Adam Sánchez MD [address] [place] [phone] Internal Medicine 04/18/20 08/30/22 Jose Daniel Castellanos MD [address] [place] [address] Otolaryngology 04/18/20 Adam Sánchez MD [address] [place] [address] Gastroenterology 08/31/22 documented as of this encounter Additional Source Comments The information contained in this document represents components of the legal health record. It is not the complete legal health record.[facility]
--- OUTSIDE RECORDS SUMMARY | 2025-04-26 07:54 | XMS_ITS | Encounter Summary ---
Author Organization [facility] Address [address] [place] [address] Phone Care Team Providers Care Dermatology Technician Name Role Phone Chaparro Alvarez MD Primary Care Provider [phone] Adam Sánchez MD Unavailable [phone] Jose Daniel Castellanos MD Unavailable [phone] Adam Sánchez MD Unavailable [phone] Encounter Details Date Type Department Care Team (Late st Contact Info) Description 10/21/2020 Procedure Pass [facility] [address] [place] [address] Social History Tobacco Use Types Packs/Day Years [...] Description 05/21/2025 11:00 AM EST Office Visit [facility] Internal Medicine [address] [place], [place] [phone] Chaparro Alvarez MD [address] [place], [place] [phone] documented as of this encounter Visit Diagnoses Not on filedocumented in this encounter Additional Health Concerns Infection Onset Date Last Indicated Resolved Time MRSA 03/21/2020 12/25/2020 12/25/2022 1:22 AM EDT Assessment Noted Time PHQ-2 Depression Total Score: 0 08/16/19 21 8:10 AM EST documented as of this encounter Care Teams Dermatology Technician Relationship Specialty Start Date End Date Chaparro Alvarez MD [address] [place] [address] [email or web address] PCP - General Internal Medicine 10/06/19 03/29/25 Adam Sánchez MD [address] [place] [address] Internal Medicine 04/18/20 08/30/22 Jose Daniel Castellanos MD [address] [place] [address] Otolaryngology 04/18/20 Adam Sánchez MD [address] [place] [address] Gastroenterology 08/31/22 documented as of this encounter Additional Source Comments The information contained in this document represents components of the legal health record. It is not the complete legal health record.[facility]
--- OUTSIDE RECORDS SUMMARY | 2025-04-26 07:54 | XMS_ITS | Encounter Summary ---
Author Organization [facility] Address [address] [place] [address] Phone Care Team Providers Care Mixing Technician Name Role Phone Ajay Glez DO Primary Care Provider [phone] Chaparro Alvarez MD Primary Care Provider [phone] Adam Sánchez MD Unavailable [phone] Jose Daniel Castellanos MD Unavailable [phone] Adam Sánchez MD Unavailable [phone] Encounter Details Date Type Department Care Team (Late st Contact Info) Description 05/25/2019 Procedure Pass OR Admitting Dept - [facility] Department [address] [place] [address] Social History Tobacco Use Types Packs/Day Years [...] Encounters Date Type Department Care Team (Late Contact Info) Description 05/21/2025 11:00 AM EST Office Visit [facility] Internal Medicine [address] [place], [place] [phone] Chaparro Alvarez MD [address] [place], [place] [phone] documented as of this encounter Visit Diagnoses Not on filedocumented in this encounter Additional Health Concerns Infection Onset Date Last Indicated Resolved Time MRSA 03/21/2020 12/25/2020 12/25/2022 1:22 AM EDT documented as of this encounter Care Teams Mixing Technician Relationship Specialty Start Date End Date Ajay Glez DO [address] [place] [address] PCP - General 07/08/17 10/05/19 Chaparro Alvarez MD [address] [place] [address] [email or web address] PCP - General Internal Medicine 10/06/19 03/29/25 Adam Sánchez MD [address] [place] [phone] Internal Medicine 04/18/20 08/30/22 Jose Daniel Castellanos MD [address] [place] [address] Otolaryngology 04/18/20 Adam Sánchez MD [address] [place] [address] Gastroenterology 08/31/22 documented as of this encounter Additional Source Comments The information contained in this document represents components of the legal health record. It is not the complete legal health record.[facility]
--- OUTSIDE RECORDS SUMMARY | 2025-04-26 07:54 | XMS_ITS | Encounter Summary ---
Author Organization [facility] Address [address] [place] [address] Phone Care Team Providers Care Nurse Transplant Name Role Phone Chaparro Alvarez MD Primary Care Provider [phone] Jose Daniel Castellanos MD Unavailable [phone] Adam Sánchez MD Unavailable [phone] Reason for Visit * Reason Comments Medication Refill Encounter Details Date Type Department Care Team (Late st Contact Info) Description 01/29/2025 Refill [facility] [address] [facility] [address], [place] [address] Anuradha Tavarez PA-C [address] [place] [address] [email or web address] Medication Refill Social History Tobacco Use Types Packs/Day Years [...] high school, GED, job training, learning the Estonian language, technical skills, or developing parenting skills)? [...] your housing situation today? I have edwin sing 04/14/2024 How many times have you move [...] Description 05/21/2025 11:00 AM EST Office Visit [facility] Internal Medicine [address] [place] [address] Chaparro Alvarez MD [address] [place] [address] [email or web address] documented as of this encounter Visit Diagnoses Not on filedocumented in this encounter Additional Health Concerns Assessment Noted Time PHQ-2 Depression Total Score: 0 04/14/20 24 10:18 AM EDT documented as of this encounter Care Teams Nurse Transplant Relationship Specialty Start Date End Date Chaparro Alvarez MD [address] [place] [address] [email or web address] PCP - General Internal Medicine 10/06/19 03/29/25 Jose Daniel Castellanos MD [address] [place] [address] Otolaryngology 04/18/20 Adam Sánchez [place] [address] [place] [address] Gastroenterology 08/31/22 documented as of this encounter Additional Source Comments The information contained in this document represents components of the legal health record. It is not the complete legal health record.[facility]
--- OUTSIDE RECORDS SUMMARY | 2025-04-26 07:54 | XMS_ITS | Encounter Summary ---
Author Organization [facility] Address [address] [place] [address] [place] [address] Phone Care Team Providers Care Jerker Name Role Phone Chaparro Alvarez MD Primary Care Provider [phone] Adam Sánchez MD Unavailable [phone] Jose Daniel Castellanos MD Unavailable [phone] Adam Sánchez MD Unavailable [phone] Encounter Details Date Type Department Care Team (Late st Contact Info) Description 02/23/2022 Procedure Pass [facility] [address] [place] [address] Social History Tobacco Use Types Packs/Day Years Used Date Smoking Tobacco: Never Smokeless Tobacco: Never Alcohol Use Standard Drinks/Week Comments No 0 (1 standard drink = 0.6 oz pur e alcohol) Child or Family Care Answer Date Record ed Do you have problems with on e of the following making it difficult for you to work, study, or receive health care? No 12/16/2020 Education Answer Date Recorded Are you interested in help w ith more adult education (for example, completing high school, GED, job training, learning the Pashto language, technical skills, or developing parenting skills)? No 12/16/2020 Food Answer Date Recorded Within the past 6 months we worried whether our food would run out before we got money to buy more. Never True 12/16/2020 Within the past 6 months the food we bought just didn't last and we didn't have enough money to get more. Never True Residential Stability Answer Date Recor ded What is your housing situation today? I have edwin casey 12/16/2020 How many times have you moved in the past 12 mon ths? One time 12/16/2020 Paying for Meds Answer Date Recorded Do you have trouble paying for medicines? No 12/16/2020 Paying Utility Bills Answer Date Record ed Do you have trouble paying your heating or elect ricity bill? No 12/16/2020 Transportation Answer Date Recorded Has the lack of transportati on kept you from medical appointments or from getting medications? No 12/16/2020 Unemployment Answer Date Recorded Are you currently unemployed or working on a part-time or temporary basis, and looking for work? No 12/16/2020 Comments No Sex and Gender Information Value [...] Description 05/21/2025 11:00 AM EST Office Visit [facility] Internal Medicine [address] [place] [address] Chaparro Alvarez MD [address] [place] [address] [email or web address] documented as of this encounter Visit Diagnoses Not on filedocumented in this encounter Additional Health Concerns Infection Onset Date Last Indicated Resolved Time MRSA 03/21/2020 12/25/2020 12/25/2022 1:22 AM EDT Assessment Noted Time PHQ-2 Depression Total Score: 0 08/22/19 22 10:10 AM EST documented as of this encounter Care Teams Jerker Relationship Specialty Start Date End Date Chaparro Alvarez MD [address] [place] [address] [email or web address] PCP - General Internal Medicine 10/06/19 03/29/25 Adam Sánchez MD [address] [place] [address] Internal Medicine 04/18/20 08/30/22 Jose Daniel Castellanos MD [address] [place] [address] [email or web address] Otolaryngology 04/18/20 Adam Sánchez MD [address] [place] [address] Gastroenterology 08/31/22 documented as of this encounter Additional Source Comments The information contained in this document represents components of the legal health record. It is not the complete legal health record.[facility]
--- OUTSIDE RECORDS SUMMARY | 2025-04-26 07:54 | XMS_ITS | Encounter Summary ---
Author Organization [facility] Address [address] [place] [address] Phone Care Team Providers Care Certified Tower Climber Name Role Phone Chaparro Alvarez MD Primary Care Provider [phone] Adam Sánchez MD Unavailable [phone] Jose Daniel Castellanos MD Unavailable [phone] Adam Sánchez MD Unavailable [phone] Encounter Details Date Type Department Care Team (Late st Contact Info) Description 03/21/2020 Procedure Pass OR Admitting Dept - Virtual Department [address] [place] [address] Social History Tobacco Use Types Packs/Day Years [...] Description 05/21/2025 11:00 AM EST Office Visit [facility] Internal Medicine [address] [place] [address] Chaparro Alvarez MD [address] [place] [address] documented as of this encounter Visit Diagnoses Not on filedocumented in this encounter Additional Health Concerns Infection Onset Date Last Indicated Resolved Time MRSA 03/21/2020 12/25/2020 12/25/2022 1:22 AM EDT Assessment Noted Time PHQ-2 Depression Total Score: 0 10/16/19 3:11 PM EDT documented as of this encounter Care Teams Certified Tower Climber Relationship Specialty Start Date End Date Chaparro Alvarez MD [address] [place] [address] [email or web address] PCP - General Internal Medicine 10/06/19 03/29/25 Adam Sánchez MD [address] [place] [address] Internal Medicine 04/18/20 08/30/22 Jose Daniel Castellanos MD [address] [place] [address] [email or web address] Otolaryngology 04/18/20 Adam Sánchez MD [address] [place] [address] Gastroenterology 08/31/22 documented as of this encounter Additional Source Comments The information contained in this document represents components of the legal health record. It is not the complete legal health record.[facility]
--- OUTSIDE RECORDS SUMMARY | 2025-04-26 07:54 | XMS_ITS | Data Portability ---
Author Organization ROGELIO [facility], [address] Address [address] [place] [address] Care Team Providers Care Legal Nurse Consultant Name Role Phone JEAN JOSEPH Primary Care Provider [phone] Assessment No assessment recorded. Plan of Treatment Reminders Order Date Submit Date Provider Last Modified By Organization Details Last Modified Time Details Appointments None recorded. Lab rapid SARS CoV 2 Ag, QL IA, respiratory specimen 2022 023 [id number], [address] [place] [address], [id number], 3 12:11:49 Referral None recorded. Procedures None recorded. Surgeries None recorded. Imaging None recorded. Medication Orders benzonatate 200 mg capsule 2022 023 [id number], [address], [place], [id number], 3 12:11:58 prednisone 20 mg tablet 2022 023 [facility] #[id number], [address], [place], [id number], 3 12:11:57 albuterol sulfate HFA 90 mcg/actuati on aerosol inhaler 2022 023 [facility] #[id number], [address], [place], [id number], 3 12:11:56 Allergy Relief (fluticason e) 50 mcg/actuati on nasal spray,suspe nsion 2022 023 [facility] #[id number], [address], [place], [id number], 12:11:57 Patient TargetsNo targets recorded. Patient Instructions Encounter Date Encounter Id Patient Instructions Last Modified By Organization Details Last Modified Time 08/17/2022 [id number] cough: care instructions [email or web address] Not available 08/17/2022 12:11:49 Sinusitis is an infection of the lining of the sinus cavities in your head. Sinusitis often follows a cold. It causes pain and pressure in your head and face. In most cases, sinusitis gets better on its own in 1 to 2 weeks. But some mild symptoms may last for several weeks. Sometimes antibiotics are needed. if you are having problems. It's also a good idea to know your test results and keep a list of the medicines you take. How can you care for yourself at home? Take an agvt-olt-jbzugaj pain medicine. Avoid Ibuprofen, Aleve and Aspirin if . If the doctor prescribed antibiotics, take them as directed. Do not stop taking them just because you feel better. You need to take the full course of antibiotics. Be careful when taking ekmi-ogp-hdbrdxl cold or influenza (flu) medicines and Tylenol at the same time. Many of these medicines have acetaminophen, which is Tylenol. Read the labels to make sure that you are not taking more than the recommended dose. Too much acetaminophen (Tylenol) can be harmful. Breathe warm, moist air from a steamy shower, a hot bath, or a sink filled with hot water. Avoid cold, dry air. Using a humidifier in your home may help. Follow the directions for cleaning the machine. Use saline (saltwater) nasal washes. This can help keep your nasal passages open and wash out mucus and bacteria. You can buy saline nose drops at a grocery store or drugstore. Or you can make your own at home by adding 1 teaspoon (5 millilitres) of salt and 1 teaspoon (5 millilitres) of baking soda to 2 cups (500 mL) of distilled water. If you make your own, fill a bulb syringe with the solution, insert the tip into your nostril, and squeeze gently. Blow your nose. Put a hot, wet towel or a warm gel pack on your face 3 or 4 times a day for 5 to 10 minutes each time. Try a decongestant nasal spray like oxymetazoline (Drixoral). Do not use it for more than 3 days in a row. Using it for more than 3 days can make your congestion worse. Not available 08/17/2022 12:09:27 Patient instruct ed on worsening signs and symptoms that would require further evaluation by ED or PCP such as fever of 101.0 or greater, congestion accompanied with coughing, vomiting, diarrhea, abdominal pain, decreased oral intake, lethargy, or other new symptom(s) experienced not discussed during this visit. Use humidifier and ensure good hydration. If you experience new concerning symptoms, shortness of breath, respiratory distress, or chest pain go to the ER. Use the medications prescribed. May use Decongestants if tolerated and no history of elevated blood pressure or Diabetes. Use saline nasal saline and Flonase daily for1 week. You may use tylenol for pain/fever. Do not take prednisone with Ibuprofen. Get some extra rest. When should you call for help? Call anytime you think you may need emergency care. For example, call if: You have severe trouble breathing. Call your doctor now or seek immediate medical care if: You have new or worse trouble breathing. You cough up dark brown or bloody mucus (sputum). You have a new or higher fever. You have a new rash. Watch closely for changes in your health, and be sure to contact your doctor if: You cough more deeply or more often, especially if you notice more mucus or a change in the color of your mucus. You are not getting better as expected. If you test positive for COVID-19, stay home for at least 5 days and isolate from others in your home. You are likely most infectious during these first 5 days. Wear a high-quality mask if you must be around others at home and in public. Do not go places where you are unable to wear a mask. For travel guidance, see [facility] Travel webpage. Do not travel. Stay home and separate from others as much as possible. Use a separate bathroom, if possible. Take steps to improve ventilation at home, if possible. Don t share personal household items, like cups, towels, and utensils. Monitor your symptoms. If you have an emergency warning sign (like trouble breathing), seek emergency medical care immediately. If you had symptoms and: Your symptoms are improving You may end isolation after day 5 if: You are fever-free for 24 hours (without the use of fever-reducing medication). Your symptoms are not improving Continue to isolate until: You are fever-free for 24 hours (without the use of fever-reducing medication). Your symptoms are improving. Regardless of when you end isolation Until at least day 11: Avoid being around people who are more likely to get very sick from COVID-19. Remember to wear a high-quality mask when indoors around others at home and in public. Do not go places where you are unable to wear a mask until you are able to discontinue masking (see below). For travel guidance, see [facility] Travel webpage. Not available 08/17/2022 12:10:54 Reason for Referral None Reported. Results Created Date Observation Date Name Description Value Unit Range Abnormal Flag Note LastModifiedBy Organization Detail LastModifiedTime 08/17/19 23 08/17/2022 rapid SARS CoV 2 Ag, QL IA, respi rator y speci men Unknown Analyte Normal =Negat parul Not Available [facility] [place], [address], 08/17/2022 11:42:53 08/17/1908/17/2022 rapid SARS CoV 2 Ag, QL IA, respi rator y speci men Unknown Analyte negati ve Not Available [id number] [address] [place], [address], 08/17/2022 11:42:53 Result Notes None recorded. Problems Name Problem SNOMED Code Status Onset Date Resolution Date Notes Provider Name and Address Organization Details Recorded Time Hypertensive disorder 59114669 Active 2022 ROGELIO Moctezuma - [facility] 3 11:38:17 Cirrhosis of liver 16075650 Active 2022 Sylvia chong PA - [facility] 3 11:38:47 Problem Notes None recorded. Procedures Surgical History Date Name Laterality Status Provider Name and Address Organization Details Recorded Time hysterectomy completed Sylvia Lima PA - [facility] 08/17/2022 11:39:54 cholecystectomy completed Sylvia Lima PA - [facility] 08/17/2022 11:40:01 Imaging Results None recorded. Procedure Notes None recorded. Medical Equipment None Reported. Allergies Allergen ID Allergen Name Allergen Category Reaction Reaction Severity Criticality Documentation Date Start Date Code Code System Note Provider Name and Address Organization Details Recorded Time 620946 vancomyci n medicatio n anaphylax is Not available Not available 08/17/[address] [facility] 3 11:34:58 Medications Name Sig Start Date Stop Date Status Note LastModified by Organization Details LastModified Time carvedilol 6.25 mg tablet TAKE 1 TABLET BY MOUTH TWICE A DAY 08/17 completed Not Available Not Available Not Available azithromyci n 250 mg tablet TAKE 1 TABLET BY MOUTH EVERY OTHER DAY 08/17 completed Not Available Not Available Not Available benzonatate 200 mg capsule Take 1 capsule 3 times a day by oral route as needed for 7 days. 2022 active Not Available Not Available Not Avai lable prednisone 20 mg tablet Take 2 tablets every day by oral route in the morning for 3 days. 2022 active Not Available Not Available Not Avai lable nadolol 20 mg tablet 08/17 completed Not Available Not Available Not Available tamsulosin 0.4 mg capsule TAKE 1 CAPSULE BY MOUTH DAILY FOR 5 DAYS 08/17 completed Not Available Not Available Not Available lisinopril 5 mg tablet active Not Available Not Available Not Available albuterol sulfate HFA 90 mcg/actuati on aerosol inhaler Inhale 2 puffs every 4-6 hours by inhalatio n route as needed for 10 days. 2022 active Not Available Not Available Not Avai lable ondansetron 4 mg disintegrat ing tablet DISSOLVE 1 TABLET ON THE TONGUE EVERY 8 HOURS NEEDED FOR NAUSEA OR VOMITING 08/17 completed Not Available Not Available Not Available metformin ER 500 mg tablet,exte nded release 24 hr active Not Available Not Available Not Available loratadine 10 mg tablet TAKE 1 TABLET BY MOUTH EVERY DAY 08/17 completed Not Available Not Available Not Available naproxen 500 mg tablet 08/17 completed Not Available Not Available Not Available oxycodone 5 mg tablet TAKE 1-2 TABLET BY MOUTH EVERY 6 HOURS NEEDED FOR PAIN 08/17 completed Not Available Not Available Not Available budesonide active Not Available Not Av ailable Not Available olopatadine 0.6 % nasal spray USE 1 SPRAY IN EACH NOSTRIL TWICE DAILY active Not Available Not Available No t Available Allergy Relief (fluticason e) 50 mcg/actuati on nasal spray,suspe nsion [place] 1 spray twice a day by intranasa l route as directed for 30 days. 2022 active Not Available Not Available Not Avai lable Paxlovid 300 mg (150 mg x 2)-100 mg tablets in a dose pack TK 2 NIRMATREL VIR TS AND 1 RITONAVIR T TOGETHER PO BID FOR 5 DAYS TWICE DAILY FOR 5 DAYS 08/17 completed Not Available Not Available Not Available Vitals Date Recorded Body height Body mass index (BMI) Body weight Pain severity - 0-10 verbal numeric rating [Score] - Reported Oxygen saturation Oxygen saturation in Arterial blood by Pulse oximetry Heart rate Respiratory rate Body temperature Systolic And Diastolic Provider Name and Address Organization Details Last Updated DateTime 3 170.18 cm 29.3 kg/m2 11670.7 7 g 0 98 % 98 % 72 /min 18 /min 97.6 [degF] 117/80 mm[Hg] Sylvia Manzano [facility] 3 11:42:03 Social History Question Answer Notes LastModified by [employer] Details LastModified Time Tobacco Smoking Status Never Smoker [facility]OG[facility]IO [facility] 08/17/2022 11:39:32 Have You Recently Traveled Abroad? No Information not available 08/17/2022 Sex: Unknown Functional Status Question Answer Note LastModified by [employer] Details LastModified Time Do you use any illicit or recreational drugs? No Information not available 08/17/2022 What is your level of alcohol consumption? None Information not available 08/17/2022 Mental Status None recorded. Family History Relationship Description Onset Age of this Age Resolved Age Notes LastModified by Organization Details LastModified Time Mother Malignant neoplasm of breast emonfette Not available 2022 11:39:06 Medical History No medical history recorded. Gynecological HistoryNo gynecological history recorded. Obstetrics History GPAL:G 0 P 0 0 0 0 Immunizations Vaccine Type Date Status Note Provider Nam e and Address Organization Details Recorded Time Influenza, split virus, quadrivalent, preservative 9 completed Sylvia Monfette null, PA - [facility] 08/17/2022 11:34:42 Influenza, split virus, quadrivalent, preservative 7 completed Sylvia Monfette null, PA - [facility] 08/17/2022 11:34:42 Influenza, split virus, quadrivalent, preservative 8 completed Sylvia Monfette null, PA - [facility] 08/17/2022 11:34:42 zoster recombinant 1 completed Sylvia Monfette null, PA - [facility] 08/17/2022 11:34:42 zoster recombinant 0 completed Sylvia Monfette null, PA - [facility] 08/17/2022 11:34:42 COVID-19, mRNA, LNP-S, PF, 100 mcg/0.5mL dose or 50 mcg/0.25mL dose 1 completed Sylvia Monfette null, PA - [facility] 08/17/2022 11:34:42 COVID-19, mRNA, LNP-S, PF, 100 mcg/0.5mL dose or 50 mcg/0.25mL dose 1 completed Sylvia Monfette null, PA - [facility] 08/17/2022 11:34:42 COVID-19, mRNA, LNP-S, PF, 100 mcg/0.5mL dose or 50 mcg/0.25mL dose 1 completed Sylvia Monfette null, PA - [facility] 08/17/2022 11:34:42 Pneumococcal conjugate PCV20, polysaccharide [id number] conjugate, adjuvant, PF 2 completed Sylvia Monfette null, PA - [facility] 08/17/2022 11:34:42 COVID-19, mRNA, LNP-S, bivalent, PF, 50 mcg/0.5 mL or 25mcg/0.25 mL dose 2 completed Sylvia Monfette null, PA - [facility] 08/17/2022 11:34:42 pneumococcal polysaccharide PPV23 7 completed Sylvia Monfette null, PA - [facility] 08/17/2022 11:34:42 pneumococcal polysaccharide PPV23 9 completed Sylvia Monfette null, PA - [facility] 08/17/2022 11:34:42 Td(adult) unspecified formulation 9 completed Sylvia Monfette null, PA - [facility] 08/17/2022 11:34:42 Tdap 8 completed Sylvia Monfette null, PA - [facility] 08/17/2022 11:34:42 Influenza, split virus, trivalent, PF 6 completed Sylvia Monfette null, PA - [facility] 08/17/2022 11:34:42 Hep B, adult 8 completed Sylvia Monfette null, PA - [facility] 08/17/2022 11:34:42 Hep B, adult 8 completed Sylvia Monfette null, PA - [facility] 08/17/2022 11:34:42 Hep B, adult 8 completed Sylvia Monfette null, PA - [facility] 08/17/2022 11:34:42 Hep A, adult 8 completed Sylvia Monfette null, PA - [facility] 08/17/2022 11:34:42 Influenza, split virus, quadrivalent, PF 2 completed Sylvia Monfette null, PA - [facility] 08/17/2022 11:34:42 Influenza, split virus, quadrivalent, PF 0 completed Sylvia Parsone null, PA - [facility] 08/17/2022 11:34:42 Influenza, split virus, quadrivalent, PF 1 completed Sylvia Stovalltte null, PA - [facility] 08/17/2022 11:34:42 Influenza, split virus, quadrivalent, PF 5 completed Sylvia Parsone null, PA - [facility] 08/17/2022 11:34:42 Past Encounters Encounter ID Performer Location Encounter Start Date Encounter Closed Date Diagnosis/Indication Diagnosis SNOMED-CT Code Diagnosis ICD10 Code Diagnosis IMO Codes Diagnosis [id number] [facility] [address] [place] [address] 07/26/2021 09:27:31 07/26/2021 10:26:49 [id number] [facility] [address] [place] [address] 03/12/2018 09:59:03 03/12/2018 11:14:21 [id number] [address] [facility] [address] [facility] [address] [place] [address] 11/26/2016 18:44:26 11/26/2016 19:14:47 [id number] [facility] [address] [place] [address] 02/02/2018 16:56:21 02/02/2018 17:20:23 [id number] [facility] [address] [place] [address] 07/23/2018 10:12:25 07/23/2018 12:12:54 [id number] [facility] [address] [place] [address] 12/17/2018 10:55:50 12/17/2018 12:06:40 [id number] [address] [facility] [place] [address] 01/20/2015 09:55:44 01/20/2015 10:58:31 [id number] Ted Early NP [address] [place] [address] 08/17/2022 09:10:01 08/17/2022 12:14:16 Exposure to SARS-CoV-2 659514601 Z20.822 Acute sinusitis 91268140 J01.90 Acute bronchitis 0419935 2 J20.9 Health Concerns Section Related Observation LastModified by Organization Detai ls LastModified Time None Recorded Concern Status LastModified by Organization Details LastModified Time None Recorded Advance Directives Directive None Recorded Payers Insurance Date Sequence Insurance Name Policy Number Policy Reyes Covered Member ID Reyes Member ID Guarantor Name 08/17/2022 1 [facility] [id number] Liz R Abdelrahman [id number] Liz R Abdelrahman 08/17/2022 1 [facility] TYPE I (HMO) [id number] Liz R Abdelrahman [id number] Liz R Abdelrahman 08/17/2022 1 [facility] [id number] Liz R Abdelrahman [id number] Liz R Abdelrahman Notes Date Note Type Note Provider Name and Address Organization Details Recorded Time 08/17/2022 text/html CongestionReport ed by Patientnasal congestion with post nasal drip x 3 days. denies nay fever or fever with chills. no SOB or respiratory distress. CoughReported by Patient Ted Early NP [address] [place], [address], [place] - [facility] 08/17/2022 12:12:51 OBGyn Episode No OBEpisode recorded.
--- OUTSIDE RECORDS SUMMARY | 2025-04-26 07:54 | XMS_ITS | Data Portability ---
Author Organization [place] - [facility], Allergy Address [address] [place] [id number] Assessment Encounter Date Assessment Date Assessment LastModified by Organization Details LastModified Time 01/11/2024 01/11/2024 Reviewed with patient that the tube has extruded, the tympanic membrane has healed, and there is no effusion. Recommend follow-up as needed. Not available 01/11/2024 16:44:08 Plan of Treatment Reminders Order Date Submit Date Provider Last Modified By Organization Details Last Modified Time Details Appointments None record ed. Lab None record ed. Referral None record ed. Procedures None record ed. Surgeries None record ed. Imaging None record ed. Medication Orders None record ed. Patient TargetsNo targets recorded. Patient Instructions Encounter Date Encounter Id Patient Instructions Last Modified By Organization Details Last Modified Time 12/28/2023 [id number] Patient with discomfort in right ear. Tube appears to have extruded and is held in mid-canal with large plug of hard dry cerumen. Recommend 2-3 drops of mineral oil BID x 7-14 days and return for removal and re-evaluation. All quesetions were answered. Not available 12/29/2023 09:51:16 01/11/2024 [id number] Tube has extruded,, TM is intact, and there is no recurrence of effusion. Reassurance provided. Follow up as needed. Not available 01/11/2024 14:31:11 Reason for Referral None Reported. Results Created Date Observation Date Name Description Value Unit Range Abnormal Flag Note LastModifiedBy Organization Detail LastModifiedTime 12/29/19 24 audio gram No observ ation record ed. BARCODE Not Available 2023 16:30:31 02/23/20 24 07/18/2020 imagi ng/di agnos tic resul t No observ ation record ed. [email or web address] Not Available 20:31:05 02/23/20 24 12/01/2019 imagi ng/di agnos tic resul t No observ ation record ed. [email or web address] Not Available 20:31:49 02/23/20 24 12/04/2022 imagi ng/di agnos tic resul t No observ ation record ed. [email or web address] Not Available 20:31:51 02/23/20 24 12/04/2022 imagi ng/di agnos tic resul t No observ ation record ed. [email or web address] Not Available 20:31:55 02/23/20 24 01/11/2023 imagi ng/di agnos tic resul t No observ ation record ed. [email or web address] Not Available 20:32:10 02/23/20 24 01/11/2023 imagi ng/di agnos tic resul t No observ ation record ed. [email or web address] Not Available 20:32:11 02/23/20 24 02/10/2019 imagi ng/di agnos tic resul t No observ ation record ed. [email or web address] Not Available 20:32:17 02/23/20 24 02/21/2019 imagi ng/di agnos tic resul t No observ ation record ed. [email or web address] Not Available 20:32:55 02/23/20 24 03/02/2019 imagi ng/di agnos tic resul t No observ ation record ed. [email or web address] Not Available 20:33:18 02/23/20 24 03/21/2020 imagi ng/di agnos tic resul t No observ ation record ed. [email or web address] Not Available 20:33:33 02/23/20 24 03/21/2020 imagi ng/di agnos tic resul t No observ ation record ed. [email or web address] Not Available 20:33:38 02/23/20 24 03/21/2020 imagi ng/di agnos tic resul t No observ ation record ed. [email or web address] Not Available 20:33:46 02/23/20 24 03/21/2020 imagi ng/di agnos tic resul t No observ ation record ed. [email or web address] Not Available 20:33:53 02/23/20 24 03/21/2020 imagi ng/di agnos tic resul t No observ ation record ed. [email or web address] Not Available 20:33:56 02/23/20 24 03/21/2020 imagi ng/di agnos tic resul t No observ ation record ed. [email or web address] Not Available 20:33:57 02/23/20 24 03/21/2020 imagi ng/di agnos tic resul t No observ ation record ed. [email or web address] Not Available 20:34:01 02/23/20 24 03/21/2020 imagi ng/di agnos tic resul t No observ ation record ed. [email or web address] Not Available 20:34:02 02/23/20 24 03/21/2020 imagi ng/di agnos tic resul t No observ ation record ed. [email or web address] Not Available 20:34:07 02/23/20 24 03/21/2020 imagi ng/di agnos tic resul t No observ ation record ed. [email or web address] Not Available 20:34:15 02/23/20 24 05/25/2019 imagi ng/di agnos tic resul t No observ ation record ed. [email or web address] Not Available 20:34:45 Result Notes None recorded. Problems Name Problem SNOMED Code Status Onset Date Resolution Date Notes Provider Name and Address Organization Details Recorded Time General unsteadin ess 747251826 Active 2018 Unsteadin ess on feet; Note: Date Diagnosed : 02/21/2019 4:04 PM (R26.81) Not Available [facility] 4 02:46:44 Sensorine ural hearing loss of bilateral ears 623123781 Active 2018 Sensorine ural hearing loss, bilateral ; Note: Date Diagnosed : 02/21/2019 4:05 PM (H90.3) Not Available [facility] 4 02:46:40 Dizziness and giddiness 442268427 Active 2018 Dizziness and giddiness ; Note: Date Diagnosed : 02/21/2019 4:04 PM (R42) Light-h eadedness ; Note: Date Diagnosed : 02/21/2019 4:04 PM (R42) Not Available [facility] 4 02:46:39 Chronic sinusitis 27997391 Active 2018 Other chronic sinusitis ; Note: Date Diagnosed : 02/28/2019 12:20 PM (J32.8) Not Available [facility] 4 02:46:43 Headache 55255679 Active 2018 Headache; Note: Date Diagnosed : 03/29/2019 9:00 AM (R51) Facial pain NOS; Note: Date Diagnosed : 02/21/2019 4:04 PM (R51) ; Start Date : 9 Not Available [facility] 4 02:46:40 Recurrent aphthous stomatiti s 706941608 Active 2018 Aphthous stomatiti s (major) (minor); Note: Date Diagnosed : 9 2:15 PM (K12.0) Not Available [facility] 4 02:46:37 Recurrent acute sinusitis 263327534 Active 2019 Other acute recurrent sinusitis ; Note: Date Diagnosed : 09/12/2019 9:14 AM (J01.81) Not Available [facility] 4 02:46:43 Localized swelling of head 89911610283 049343 Active 2019 Localized swelling, mass and lump, head; Note: Date Diagnosed : 09/12/2019 9:09 AM (R22.0) Not Available [facility] 4 02:46:37 Chronic pansinusi tis 61126954 Active 2019 Chronic pansinusi tis; Note: Date Diagnosed : 12/08/2019 3:22 PM (J32.4) Not Available [facility] 4 02:46:43 Acute serous otitis media of left ear 10389777995 47154 Active 2019 Acute serous otitis media, left ear; Note: Date Diagnosed : 02/16/2020 1:44 PM (H65.02) Not Available [facility] 4 02:46:41 Follow-up visit Active 2019 Encounter for follow-up examinati on after completed treatment for condition s other than malignant neoplasm; Note: Date Diagnosed : 03/28/2020 10:02 AM (Z09) Not Available [facility] 4 02:46:41 Allergic rhinitis 48950721 Active 2019 Allergic rhinitis, unspecifi ed; Note: Date Diagnosed : 0 4:51 PM (J30.9) Not Available [facility] 4 02:46:38 Mixed conductiv e and sensorine ural hearing loss of right ear 52206352216 105 Active 2022 Mixed conductiv e and sensorine ural hearing loss, unilatera l, right ear with restricte d hearing on the contralat eral side; Note: Date Diagnosed : 12/04/2022 2:09 PM (H90.A31) Not Available [facility] 4 02:46:37 Sensorine ural hearing loss in left ear 75862787751 109 Active 2022 Sensorine ural hearing loss, unilatera l, left ear, with restricte d hearing on the contralat eral side; Note: Date Diagnosed : 12/04/2022 2:09 PM (H90.A22) Not Available [facility] 4 02:46:40 Acute serous otitis media of right ear 43175390244 31587 Active 2022 Acute serous otitis media, right ear; Note: Date Diagnosed : 12/04/2022 1:47 PM (H65.01) Not Available [facility] 4 02:46:39 Dysfuncti on of right eustachia n tube 04303192887 12885 Active 2023 Nevaeh Ketbraden chong, [facility] 4 13:33:40 Problem Notes None recorded. Procedures Surgical History Date Name Laterality Status Provider Name and Address Organization Details Recorded Time 01/11/20 24 Tympanometry - 87135 completed NELL WYLIE, AUD [facility], [address], [facility] 01/11/2024 14:37:03 12/28/19 24 Tympanometry - 44239 completed CARLOS JENNINGSLISA, AUD [address] [facility], [place], [address], [facility] 12/28/2023 13:38:00 Imaging Results None recorded. Procedure Notes None recorded. Medical Equipment None Reported. Allergies Allergen ID Allergen Name Allergen Category Reaction Reaction Severity Criticality Documentation Date Start Date Code Code System Note Provider Name and Address Organization Details Recorded Time 586179 amoxicill in medicatio n other Not available Not available 11/16/2023 723 RxNorm React ion: unkno wn, unspe cifie d;; Not Available [facility] 4 01:14:27 Medications Name Sig Start Date Stop Date Status Note LastModified by Organization Details LastModified Time carvedilo l 6.25 mg tablet TAKE 1 TABLET BY MOUTH TWICE A DAY active Not Available Not Available No t Available prednison e 10 mg tablet by mouth 12/04 completed Medicati on ID: [id number] P rescribe d By Name: Christina basilio MD Brand Name: predniso ne Send Method: E-Prescr ibed Sub s Allowed: subs OK Speci al Instruct ion: Take 4 tabs daily for 3 days then 3 tabs daily for 3 days then 2 tabs daily for 3 days then 1 tab daily for 3 days then stop Med icationG enericNa me: predniso ne Not Available Not Available Not Available doxycycli ne hyclate 100 mg capsule 2019 active Medicati on ID: [id number] D uration Value: 10 Prescri bed By Name: Christina basilio MD Brand Name: doxycycl ine hyclate Send Method: E-Prescr ibed Sub s Allowed: subs OK Speci al Instruct ion: Take 1 po BID X 10 days Med icationG enericNa me: doxycycl ine hyclate Not Available Not Available Not Available azithromy keesha 250 mg tablet TAKE 1 TABLET BY MOUTH ON WEDNESDAY, , WEDNESDAY active Not Available Not Available No t Available ofloxacin 0.3 % eye drops Apply 2022 active Medicati on ID: [id number] B rand Name: ofloxaci n Send Method: E-Prescr ibed Sub s Allowed: subs OK Speci al Instruct ion: apply 5 drops to affected ear BID x 3 days Med icationG enericNa me: ofloxaci n Not Available Not Available Not Available benzonata te 200 mg capsule active Medicati on ID: [id number] B rand Name: benzonat ate Send Method: E-Prescr ibed Sub s Allowed: subs OK Medic ationGen ericName : benzonat ate Not Available Not Available Not Available peg-elect rolyte solution 420 gram oral solution PLEASE SEE ATTACHED FOR DETAILED DIRECTIO NS active Not Available Not Available No t Available butalbita l-acetami nophen-ca ffeine 50 mg-325 mg-40 mg tablet TAKE 1 TABLET BY MOUTH EVERY 6 HOURS NEEDED FOR PAIN active Not Available Not Available No t Available nadolol 20 mg tablet 02/21 completed Medicati on ID: [id number] D uration Value: 90 Reason: () Brand Name: nadolol Send Method: E-Prescr ibed Sub s Allowed: subs OK Medic ationGen ericName : nadolol Not Available Not Available Not Available doxycycli ne monohydra te 100 mg capsule 1 capsule by mouth 2019 active Medicati on ID: [id number] D uration Value: 10 Prescri bed By Name: Christina basilio MD Brand Name: doxycycl ine monohydr ate Send Method: E-Prescr ibed Sub s Allowed: subs OK Medic ationGen ericName : doxycycl ine monohydr ate Not Available Not Available Not Available lisinopri l 5 mg tablet active Medicati on ID: [id number] B rand Name: lisinopr il Send Method: E-Prescr ibed Sub s Allowed: subs OK Medic ationGen ericName : lisinopr il Not Available Not Available Not Available albuterol sulfate HFA 90 mcg/actua tion aerosol inhaler active Medicati on ID: [id number] B rand Name: albutero l sulfate Send Method: E-Prescr ibed Sub s Allowed: subs OK Medic ationGen ericName : albutero l sulfate Not Available Not Available Not Available fluticaso ne propionat e 50 mcg/actua tion nasal spray,[employer] active Medicati on ID: [id number] B rand Name: fluticas one propiona te Send Method: E-Prescr ibed Sub s Allowed: subs OK Medic ationGen ericName : fluticas one propiona te Not Available Not Available Not Available metformin ER 500 mg tablet,ex tended release 24 hr active Medicati on ID: 165246 B rand Name: metformi n Send Method: E-Prescr ibed Sub s Allowed: subs OK Medic ationGen ericName : metformi n Not Available Not Available Not Available doxycycli ne hyclate 100 mg tablet Take 1 tablet by mouth twice a day 2019 active Medicati on ID: 399008 D uration Value: 14 Prescri bed By Name: Christina basilio MD Brand Name: doxycycl ine hyclate Send Method: E-Prescr ibed Sub s Allowed: subs OK Medic ationGen ericName : doxycycl ine hyclate Not Available Not Available Not Available Bactrim DS 800 mg-160 mg tablet 1 tablet by mouth 2019 active Medicati on ID: [id number] D uration Value: 14 Prescri bed By Name: Christina basilio MD Brand Name: Bactrim DS Send Method: E-Prescr ibed Sub s Allowed: subs OK Medic ationGen ericName : Bactrim DS Not Available Not Available Not Available Vitals Date Recorded Body height Body mass index (BMI) Body weight Provider Name and Address Organization Details Last Updated DateTime 12/28/2023 171.45 cm 28.1 kg/m2 13612.81 g Mercy Cummins [place] - [facility] 12/28/2023 13:19:11 Date Recorded Body height Body mass index (BMI) Body weight Provider Name and Address Organization Details Last Updated DateTime 01/11/2024 171.45 cm 27.6 kg/m2 54949.03 g Mercy Cummins [place] - [facility] 01/11/2024 14:15:39 Social History None recorded. Functional Status None recorded. Mental Status None recorded. Family History Nothing Reported. Medical History No medical history recorded. Gynecological HistoryNo gynecological history recorded. Obstetrics History GPAL:G 0 P 0 0 0 0 Past Encounters Encounter ID Performer Location Encounter Start Date Encounter Closed Date Diagnosis/Indication Diagnosis SNOMED-CT Code Diagnosis ICD10 Code Diagnosis IMO Codes Diagnosis Note [id number] NEVAEH REYEZ PA-C [facility] [address] [address] 12/28/2023 13:16:57 12/28/2023 13:55:34 Dysfunction of right eustachian tube 6661063572 933713 H69.91 Right Ear: Type A tympanogra m.Left Ear: Type A tympanogra m [id number] NEVAEH REYEZ PA-C [facility] [address] [address] 01/11/2024 14:12:25 01/11/2024 14:46:28 Dysfunction of right eustachian tube 7355087500 988994 H69.91 Left Ear: Type A tympanogra m. Right Ear: Type A tympanogra m. Health Concerns Section Related Observation LastModified by Organization Detai ls LastModified Time None Recorded Concern Status LastModified by Organization Details LastModified Time None Recorded Advance Directives Directive None Recorded Payers Insurance Date Sequence Insurance Name Policy Number Policy Reyes Covered Member ID Reyes Member ID Guarantor Name 01/08/2024 1 [facility] Liz Abdelrahman [id number] Liz Abdelrahman 01/08/2024 2 [place] [facility] Liz Abdelrahman [id number] Liz Abdelrahman Notes Date Note Type Note Provider Name and Address Organization Details Recorded Time 12/28/2023 text/html ROS as noted in the HPI 63 year old female presents for right tube check. Right myringotomy and ventilation tube placed 12/16/[address] Centeno. Patient reports 4 day history of aching sensation in that ear. No otorrhea. Hearing seems to be at baseline, which is improved since before the tube was placed. YANNICK SAMPSON MD [address] [facility],[address], [address], [facility] - [facility] 12/29/2023 21:36:13 01/11/2024 text/html ROS as noted in the HPI 63 year old female presents for right tube check. Right myringotomy and ventilation tube placed 12/16/[address] Centeno. At last visit, this was found to be possibly extruded and held in the canal with a plug of cerumen. Patient reports she has been using mineral oil as advised and feels the ear opened up a bit. CHRISTINA KIMBROUGH MD 100 [facility],[address], [place], [address], [facility] 01/12/2024 08:26:13 OBGyn Episode No OBEpisode recorded.
[2025-04-26 08:03] VITALS: BP 111/54; PULSE 67; RESP 16; TEMP 36.4; O2SAT 100; BMI 27.0
== END 2025-04-26 09:12 | disposition home or self-care (01) ==
LOC: HO.HMCFM 07:52
PROVIDERS: PCP Nurse Practitioner Family; Visit Provider Nurse Practitioner Family
DX: K74.60 Unspecified cirrhosis of liver (principal); E11.9 Type 2 diabetes mellitus without complications; Z76.89 Persons encountering health services in other specified circumstances; R01.1 Cardiac murmur, unspecified; R00.2 Palpitations; M79.89 Other specified soft tissue disorders; R53.83 Other fatigue; G47.10 Hypersomnia, unspecified

== ENCOUNTER 2025-04-26 07:51 | Outpatient (REF) | payer MEDICARE, SELFPAY ==
[2025-04-26 11:43] LABS: Hematocrit 37.5 % (37.0-47.0); Hemoglobin 13.0 g/dl (12.0-16.0); Mean Corpuscular HGB Conc 34.7 g/dl (31.0-35.0); Mean Corpuscular Hemoglobin 32.3 pg (27.0-33.0); Mean Corpuscular Volume 93.3 fL (80.0-98.0); NRBC Abs Auto 0.000 X10*3/uL (0.0-0.012); NRBC Pct Auto 0.0 /100WBC (0.0-0.2); Red Blood Count 4.02 X10*6/uL (4.20-5.50); White Blood Count 3.7 X10*3/uL (4.8-10.8)
[2025-04-26 11:49] LABS: Platelet Count 71 X10*3/uL (160-400)
[2025-04-26 11:55] LABS: Alanine Aminotransferase 18 U/L (0-31); Albumin Level 3.2 g/dL (3.5-5.0); Alkaline Phosphatase 101 U/L (39-117); Anion Gap 8 (12-20); Aspartate Amino Transferase 32 U/L (5-31); Blood Urea Nitrogen 8 mg/dL (9-16); Calcium 8.7 mg/dL (8.4-10.2); Carbon Dioxide 28 mmol/L (22-29); Chloride 111 mmol/L (96-108); Cholesterol 179 mg/dL (<200); Estimated Glomerular Filt Rate > 60; HDL Cholesterol 61 mg/dL (>40); Iron 133 mcg/dL (30-160); Magnesium 1.9 mg/dL (1.6-2.6); Percent Iron Saturation 50 % (15-50); Potassium 4.0 mmol/L (3.3-5.1); Sodium 143 mmol/L (135-145); Total Iron Binding Capacity 267 mcg/dL (228-428); Total Protein 6.4 g/dL (6.5-8.0); Triglycerides 52 mg/dL (<150); Unsaturated Iron Binding 134 ug/dL
[2025-04-26 12:23] LABS: Ferritin 28 ng/mL (10-250)
[2025-04-26 12:42] LABS: Folate 6.6 ng/mL (> or = 4.0); Vitamin B12 635 pg/mL (200-900)
== END 2025-04-26 07:52 | disposition home or self-care (01) ==
LOC: HO.WFDLDS 07:51
PROVIDERS: PCP Nurse Practitioner Family; Visit Provider Nurse Practitioner Family
DX: R94.31 Abnormal electrocardiogram [ECG] [EKG] (principal); E11.9 Type 2 diabetes mellitus without complications; M79.89 Other specified soft tissue disorders; M85.80 Other specified disorders of bone density and structure, unspecified site; I86.8 Varicose veins of other specified sites; I25.10 Atherosclerotic heart disease of native coronary artery without angina pectoris; K74.60 Unspecified cirrhosis of liver; R53.83 Other fatigue; R01.1 Cardiac murmur, unspecified; R00.2 Palpitations; G47.10 Hypersomnia, unspecified; Z79.84 Long term (current) use of oral hypoglycemic drugs; Z79.899 Other long term (current) drug therapy; Z76.89 Persons encountering health services in other specified circumstances
CPT/HCPCS: 36415; 80053; 80061; 82043; 82306; 82570; 82607; 82728; 82746; 83036; 83540; 83735; 84100; 84443; 85027; 93005; 96127; 99202

== ENCOUNTER 2025-05-11 10:28 | Outpatient (REF) | payer MEDICARE, SELFPAY ==
[2025-05-11 14:32] LABS: Alanine Aminotransferase 14 U/L (0-31); Albumin Level 3.2 g/dL (3.5-5.0); Alkaline Phosphatase 106 U/L (39-117); Anion Gap 9 (12-20); Aspartate Amino Transferase 30 U/L (5-31); Blood Urea Nitrogen 13 mg/dL (9-16); Calcium 8.6 mg/dL (8.4-10.2); Carbon Dioxide 27 mmol/L (22-29); Chloride 107 mmol/L (96-108); Estimated Glomerular Filt Rate > 60; Magnesium 1.8 mg/dL (1.6-2.6); Potassium 4.0 mmol/L (3.3-5.1); Sodium 139 mmol/L (135-145); Total Protein 6.3 g/dL (6.5-8.0)
== END 2025-05-11 10:29 | disposition home or self-care (01) ==
LOC: HO.LAB 10:28
PROVIDERS: PCP Nurse Practitioner Family; Visit Provider Nurse Practitioner Family
DX: R94.31 Abnormal electrocardiogram [ECG] [EKG] (principal); M79.89 Other specified soft tissue disorders; R30.0 Dysuria; R60.0 Localized edema; I25.10 Atherosclerotic heart disease of native coronary artery without angina pectoris; R01.1 Cardiac murmur, unspecified; R00.2 Palpitations; Z87.440 Personal history of urinary (tract) infections
CPT/HCPCS: 36415; 80053; 83735; 84100; 87086; 87088; 87186; 93005; 96127; 99212

== ENCOUNTER 2025-05-11 10:28 | Outpatient (AMB) | payer MEDICARE, SELFPAY ==
--- OUTSIDE RECORDS SUMMARY | 2022-03-24 10:03 | XMS_ITS | Encounter Summary ---
Author Organization [facility] Address [address] [place] [address] [place] [address] Phone Care Team Providers Care Under Cutter Name Role Phone Chaparro Alvarez MD Primary Care Provider [phone] Adam Sánchez MD Unavailable [phone] Jose Daniel Castellanos MD Unavailable [phone] Encounter Details Date Type Department Care Team (Late st Contact Info) Description 03/24/2022 11:03 AM EDT Hospital Encounter [facility] [address] [place] [phone] Cristiana Mcdonald FNP [address] [place] [address] [email or web address] Social History Tobacco Use Types Packs/Day Years [...] high school, GED, job training, learning the Uruguayan language, technical skills, or developing parenting skills)? [...] as of this encounter Plan of Treatment Upcoming Encounters Date Type Department Care Team (Late st Contact Info) Description 05/21/2025 11:00 AM EST Office Visit [facility] Internal Medicine [address] [place] [address] Chaparro Alvarez MD [address] [place] [address] [email or web address] documented as of this encounter Procedures Procedure [...] IMPRESSION: No displaced rib fracture. Cristiana Mcdonald TRUCK AND TRANSPORT MECHANIC IMG XR CHEST Final Resul t documented in this encounter Visit Diagnoses Not on filedocumented in this encounter Additional Health Concerns Infection Onset Date Last Indicated Resolved Time MRSA 03/21/2020 12/25/2020 12/25/2022 1:22 AM EDT Assessment Noted Time PHQ-2 Depression Total Score: 0 08/22/19 10:10 AM EST documented as of this encounter Care Teams Under Cutter Relationship Specialty Start Date End Date Chaparro Alvarez MD [address] [place] [address] [email or web address] PCP - General Internal Medicine 10/06/19 03/29/25 Adam Sánchez MD [address] [place] [id number] Internal Medicine 04/18/20 08/30/22 Jose Daniel Castellanos MD [address] [place] [id number] [email or web address] Otolaryngology 04/18/20 documented as of this encounter Additional Source Comments The information contained in this document represents components of the legal health record. It is not the complete legal health record.[facility]
--- NOTE | 2025-05-11 10:31 | MHC.PC.OV ---
Vital Signs 05/11/25 10:35 Height 5 ft 7.5 in Weight 170 lb 2 oz BMI 26.2 BP 106/66 Blood Pressure Location Rt brachial Position Sitting Respiration 12 Pulse 59 Pulse Source Pulse Oximeter Temp 97.6 F Temp Source Oral Pulse Oximetry (%) 99 Oxygen Delivery Method Room Air Intake Visit Reasons: 2 weeks 30 min close interim fu Intake Note: 2 Weeks follow up Business Machine Operator Required: No Allergies vancomycin (VANCOMYCIN) Allergy (Intermediate, Verified 05/11/25 10:38) RASH, hives, hives, breathing amoxicillin (AMOXICILLIN) Allergy (Unknown, Verified 05/11/25 10:38) UNKNOWN, hives adhesives Allergy (Unknown, Uncoded 05/11/25 10:32) rash amoxicillin Allergy (Unknown, Uncoded 05/11/25 10:32) hives Latex Allergy (Unknown, Uncoded 05/11/25 10:32) rash Medication List - Last Reconciled 05/11/25 by Pamela Casper, ELEVATOR ATTENDANT-BC dqefxqabmg-vqztdvkmmaapq-ific 50-325-40 mg 1 tab PO Q6H PRN carvedilol 6.25 mg PO BID lisinopril 5 mg PO DAILY lorazepam 0.5 - 1 mg PO metformin ER 1,000 mg (2 x 500 mg) PO QPM onabotulinumtoxinA (Botox) units subcut spironolactone 25 mg PO DAILY Tobacco use date assessed: 05/11/25 Fall risk assessment: No Falls in past year Last assessed Fall Risk: 05/11/25 Dental Screening Dental Screen Date: 05/11/25 Did you have a dental visit in the last 12 months?: Yes Did you have a dental problem in the last 6 months where you did not have access to dental care?: No Was dental information given to patient?: Patient has dentist HPI HPI Comments History of Present Illness Details 65 y/o F with 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, splenomegaly, HTN, DM2, nephrolithiasis, CAD, osteopenia, migraine, chronic occlussive thrombus r portal vein, portal htn SurgHx: hysterectomy, christy, cts release, lens implant bilat, r breast bx, 3 sinus surgeries to fix chronic sinusitis FHx: Dad alive SocHx: , 2 children, and 2 grandchildren, Retired Health Maintenance: Colon: 2018 repeat 2027 Mammo 9/8/25 WNL DEXA PAP Vaccines: UTD on all Specialists: [facility] GI visits q6mo with imaging Dr Sánchez [facility] Becca Joshua [facility] History of Present Illness The patient is a 65-year-old female presenting for a close interim follow-up visit for bilateral lower extremity edema. Bilateral lower extremity edema: - The patient developed bilateral lower extremity edema two weeks prior to this visit. - She was treated with a two-week course of spironolactone and reports her swelling has improved since taking it. - She finished the medication and has been off of it for two days, without a noticeable recurrence of swelling. - She experienced a 5-pound weight loss since her last visit. Abnormal EKG: - An EKG performed two weeks ago showed normal sinus rhythm with premature ventricular contractions (PVCs) and a prolonged QTc. Dysuria: - While taking spironolactone, the patient experienced increased urinary frequency and dysuria. - The patient denies any associated fever. Fatigue: - The patient reports persistent fatigue which has not improved, stating she cannot stay awake when she sits down. - She wonders if the fatigue is related to her liver or her known enlarged spleen. Splenomegaly/Cirrhosis: - The patient has a known history of an enlarged spleen and has an upcoming appointment with Dr. Sánchez on the of the month. Review of Systems - Constitutional: Reports persistent fatigue. Denies fever. - Genitourinary: Reports increased urinary frequency and dysuria. - Musculoskeletal/Extremities: Reports improvement in bilateral lower extremity swelling. Physical Exam Awake alert NAD Scleras nonicteric bilat 2/6 murmur, irregular LS CTAB Abd soft, nontender Edema BLE trace bilat, worse on the L, + PP Verrucous growth L knee Mood and affect appropriate 2 weeks ago Diagnostic results EKG NSR with PVC prolonged QT/QtC 484/507ms Labs from today show WBC of 3.7, RBC 4.02, platelet count 71, chloride 111, anion gap of 8, BUN 8 creatinine 0.54, normal Mag and phos, total bilirubin 2.5, AST 32, total protein 6.4, albumin 3.2, LDL 108, 12 normal, vitamin-D 18.9 The anion gap is falsely low given her low albumin. Results today: - EKG: Showed short DC without delta waves, normal QRS, borderline prolonged QTc of 502, and occasional PACs. - Urinalysis: Positive for leukocytes, urobilinogen, protein, and blood. Medical Decision Making The patient is a 65-year-old female here for a close follow-up of bilateral lower extremity edema. Her edema and weight have improved following a two-week course of spironolactone, with only mild residual edema noted in the left leg. However, the repeat EKG, while different from the one two weeks ago, shows new changes, of shortened DC interval. She cont to have borderline prolonged QTc and occasional PACs. Given these evolving findings, in addition to the previously ordered echocardiogram, a referral to cardiology for further evaluation is prudent. The patient also reports new dysuria, and the in-office urinalysis was positive for leukocytes, protein, and blood, which is suspicious for a urinary tract infection. A urine specimen will be sent for culture to confirm, and treatment will be initiated by the on-call provider if positive. The plan is to restart spironolactone, but this will be contingent on today's lab results to ensure no electrolyte or renal function changes, although this is not anticipated. She will follow up in 4 weeks to review the results of her workup. Plan 1. Bilateral Lower Extremity Edema - The patient's edema has improved significantly with spironolactone x 2 weeks - An echocardiogram has been ordered. - Will restart spironolactone pending results of today's lab draw to ensure no lab abnormalities were caused by the medication. - Will call the patient later today with lab results and further instructions. 2. Abnormal Ekg - Today's EKG showed changes from the prior one, now with short DC ... she cont w/ borderline prolonged QTc and occasional PACs. - A referral to cardiology has been placed for further evaluation. 3. Urinary Tract Infection Sx - Urinalysis today was abnormal, showing leukocytes, protein and blood, concerning for a UTI. - A urine sample will be sent for culture. - If the culture is abnormal, the on-call provider will be notified to prescribe medication. 4. Follow-Up - The patient will get labs drawn today. - The patient will follow up in the office in 4 weeks. Patient Instructions - Your urine sample will be sent for a culture test, which can take about two days. If the results are abnormal, the on-call provider will contact you to prescribe medication. - A referral has been made for you to see a accounting software specialist (nurses' association executive director). Their office will call you to schedule an appointment. - Please go to the lab today to have your blood drawn. I will call you later today with the results and to discuss restarting your water pill. - Please stop at the frontload driver before you leave to schedule a follow-up appointment for 4 weeks from now. Consent Patient was informed and verbally consented to the use of an ambient scribe for clinic note documentation during this visit. Total time spent caring for the patient today was 45 minutes. This includes time spent before the visit reviewing the chart, time spent during the visit, and time spent after the visit on documentation, reviewing laboratory results, diagnostic imaging, medications, performing a medically necessary evaluation, counseling on diagnoses, care coordination, ordering appropriate tests, ordering appropriate medications, review of tests performed by other providers, reporting test results with the patient, communication with other healthcare providers. FORMERLY [facility], [facility] Medical History (Updated 05/11/25 @ 11:00 by JOSE PfeifferIMELDA) Cirrhosis Diabetes Hx of migraine headaches Hypertension Kidney stones Osteoporosis Surgical History (Updated 05/04/25 @ 08:19 by BRADY Pfeiffer) H/O: hysterectomy History of carpal tunnel surgery of left wrist History of carpal tunnel surgery of right wrist Hx of cholecystectomy Family History (Updated 04/26/25 @ 08:11 by SUDHIR Sherman) Mother Breast cancer Sister Breast cancer Social History (Updated 04/26/25 @ 08:03 by SUDHIR Sherman) Housing: Apartment Alcohol intake: never Patient Tobacco Use Status: Never used Tobacco e-Cigarette/Vaping Use: Never Used Second Hand Smoke Exposure: No service: No Current occupational status: retired Current occupational exposures/hazards: No Cognitive needs: No Hearing needs: No Vision needs: Yes Questionnaire Thrive Questionnaire Date Thrive assessed: 05/11/25 I am a: Patient What is your living situation today?: I have a steady place to live Within the past 12 months, did the food you bought not last and you didn't have the money to get more?: Never true Within the past 12 months, did you worry whether your food would run out before you got money to buy more?: Never true Do you have trouble paying for medicines?: No Do you have trouble getting transportation to medical appointments?: No Do you have trouble paying your heating and electricity bill?: No Do you have trouble taking care of your child, family member or friend?: No Do you have trouble with day-to-day activities such as bathing, preparing meals, shopping, managing finances, etc.?: No Are you currently unemployed and looking for a job?: No Are you interested in more education?: No Please select the resources that you would like help with: None Currently or been in a relationship where the following occur: No concerns reported THRIVE Score: 0 AUDIT C Alcohol Use Questionnaire (AUDIT-C) 3. How often do you have six or more drinks on one occasion?: Never Total Score: 0 SELAM-7 AMB Questionnaire SELAM-7 Date SELAM - 7 assessed: 05/11/25 Feeling nervous, anxious, or on edge: 0 = Not at all Not being able to stop or control worryin = Not at all Worrying too much about different things: 0 = Not at all Trouble relaxin = Not at all Being so restless that it is hard to sit still: 0 = Not at all Becoming easily annoyed or irritable: 0 = Not at all Feeling afraid as if something awful might happen: 0 = Not at all Total SELAM-7 score (0-4 normal; 5-9 mild; 10-14 moderate; 15-21 severe): 0 Source: Developed by Drs. Jose Daniel Castorena, Natalya Wall, Joshua Enriquez and colleagues, with an educational soham from [employer]. SELAM-7 Assessment Billing SELAM-7 Assessment Tool: SELAM-7 Assessment 97157 Physical exam (Primary Care) Vital Signs: Last Vital Signs Temp 97.6 F 05/11/25 10:35 Pulse 59 05/11/25 10:35 Resp 12 05/11/25 10:35 BP 106/66 05/11/25 10:35 Pulse Ox 99 05/11/25 10:35 Oxygen Delivery Method Room Air 05/11/25 10:35 BMI result Body Mass Index 26.2 Tobacco/Smoking Status: Tobacco use Status Tobacco use date assessed 05/11/25 05/11/25 10:36 Patient Tobacco Use Status Never used Tobacco 05/11/25 10:36 e-Cigarette/Vaping Use Never Used 05/11/25 10:36 Thrive Assessment: Date of Thrive Assessment Date Thrive assessed 05/11/25 05/11/25 10:36 Currently or been in a relationship where the following occur: No concerns reported Office Procedures EKG 06910-Xqwgshaonznzpwkeg, Complete Results AMB Urinalysis, Automated UA Leukoctes 125 Raman/uL Last Edit by Abrahan Antunez MA on 05/11/25 11:02 UA Nitrite Negative Last Edit by Abrahan Antunez MA on 05/11/25 11:02 UA Urobilinogen 35 mg/dL Last Edit by Abrahan Antunez MA on 05/11/25 11:02 UA Protein 015 mg/dL Last Edit by Abrahan Antunez MA on 05/11/25 11:02 UA pH 6.0 Last Edit by Abrahan Antunez MA on 05/11/25 11:02 UA Blood 10 Raf/uL Last Edit by Abrahan Antunez MA on 05/11/25 11:02 UA Specific [place] 1.020 Last Edit by Abrahan Antunez MA on 05/11/25 11:02 UA Ketone Negative Last Edit by Abrahan Antunez MA on 05/11/25 11:02 UA Bilirubin 0 mg/dL Last Edit by Abrahan Antunez MA on 05/11/25 11:02 UA Glucose 0 mg/dL Last Edit by Abrahan Antunez MA on 05/11/25 11:02 Coding Level of Care Code Est Pt Level 5 (24533) Complex EM visit Add On G2211 Diagnoses Coronary artery disease involving [place] coronary artery of [place] heart without angina pectoris I25.10 Associated angina: without angina Coronary Disease-Associated Artery/Lesion type: [place] artery [place] vs. transplanted heart: [place] heart Heart murmur R01.1 Heart palpitations R00.2 QT prolongation R94.31 Shortened DC interval R94.31 Dysuria R30.0 CPT Codes EKG - CPT: 52239-[id number], Complete ([id number]) Additional Codes SELAM-7 Assessment Billing - SELAM-7 Assessment Tool: SELAM-7 Assessment 84799 ([id number]) Assessment & Plan Assessment & Plan (1) CAD (coronary artery disease): Comment: Noted on previous imaging Code(s): I25.10 - Atherosclerotic heart disease of [place] coronary artery without angina pectoris Category: Medical Qualifiers: Associated angina: without angina Coronary Disease-Associated Artery/Lesion type: [place] artery [place] vs. transplanted heart: [place] heart Qualified Code(s): I25.10 - Atherosclerotic heart disease of [place] coronary artery without angina pectoris (2) Heart murmur: Code(s): R01.1 - Cardiac murmur, unspecified Category: Medical (3) Heart palpitations: Code(s): R00.2 - Palpitations Category: Medical (4) QT prolongation: Code(s): R94.31 - Abnormal electrocardiogram [ECG] [EKG] Category: Medical (5) Shortened DC interval: Code(s): R94.31 - Abnormal electrocardiogram [ECG] [EKG] Category: Medical (6) Dysuria: Code(s): R30.0 - Dysuria Category: Medical Plan . Orders: Orders Urine Culture Today R30.0 - Dysuria AMB Urinalysis Automated Today I25.10 - Atherosclerotic heart disease of [place] coronary artery without angina pectoris, R00.2 - Palpitations, R01.1 - Cardiac murmur, unspecified, R94.31 - Abnormal electrocardiogram [ECG] [EKG], Z13.9 - Encounter for screening, unspecified Referrals Cardiology Referral I25.10 - Atherosclerotic heart disease of [place] coronary artery without angina pectoris, R00.2 - Palpitations, R01.1 - Cardiac murmur, unspecified, R94.31 - Abnormal electrocardiogram [ECG] [EKG]
[2025-05-11 10:35] VITALS: BP 106/66; PULSE 59; RESP 12; TEMP 36.4; O2SAT 99; BMI 26.2
--- OUTSIDE RECORDS SUMMARY | 2025-05-11 12:22 | XMS_ITS | Encounter Summary ---
Author Organization [facility] Address [address] [place] [phone] Phone Care Team Providers Care Title I Assistant Name Role Phone Ajay Glez DO Primary Care Provider [phone] Chaparro Alvarez MD Primary Care Provider [phone] Adam Sánchez MD Unavailable [phone] Jose Daniel Castellanos MD Unavailable [phone] Adam Sánchez MD Unavailable [phone] Chaparro Alvarez MD Primary Care Provider [phone] Encounter Details Date Type Department Care Team (Late st Contact Info) Description 05/25/2019 Procedure Pass OR Admitting Dept - [facility] Department [address] [place] [address] [id number] Social History Tobacco Use Types Packs/Day Years [...] Description 05/21/2025 11:00 AM EST Office Visit [facility] Internal Medicine [address] [place] [address] Chaparro Alvarez MD [address] [place] [address] [email or web address] documented as of this encounter Visit Diagnoses Not on filedocumented in this encounter Additional Health Concerns Infection Onset Date Last Indicated Resolved Time MRSA 03/21/2020 12/25/2020 12/25/2022 1:22 AM EDT documented as of this encounter Care Teams Title I Assistant Relationship Specialty Start Date End Date Ajay Glez DO [address] [place] [id number] PCP - General 07/08/17 10/05/19 Chaparro Alvarez MD [address] [place] [address] [email or web address] PCP - General Internal Medicine 10/06/19 03/29/25 Chaparro Alvarez MD [address] [place] [phone] [email or web address] PCP - General Internal Medicine 05/02/25 Adam Sánchez MD [address] [place] [phone] Internal Medicine 04/18/20 08/30/22 Jose Daniel Castellanos MD [address] [place] [address] Otolaryngology 04/18/20 Adam Sánchez MD [address] [place] [address] Gastroenterology 08/31/22 documented as of this encounter Additional Source Comments The information contained in this document represents components of the legal health record. It is not the complete legal health record.[facility]
--- OUTSIDE RECORDS SUMMARY | 2025-05-11 12:22 | XMS_ITS | Encounter Summary ---
Author Organization [facility] Address [address] [place] [address] Phone Care Team Providers Care Manager Of Manufacturing Name Role Phone Chaparro Alvarez MD Primary Care Provider [phone] Adam Sánchez MD Unavailable [phone] Jose Daniel Castellanos MD Unavailable [phone] Adam Sánchez MD Unavailable [phone] Chaparro Alvarez MD Primary Care Provider [phone] Encounter Details Date Type Department Care Team (Late st Contact Info) Description 03/21/2020 Procedure Pass OR Admitting Dept - Virtual Department [address] [place] [phone] Social History Tobacco Use Types Packs/Day [...] Description 05/21/2025 11:00 AM EST Office Visit [facility] Internal Medicine [address] [place], [place] [phone] Chaparro Alvarez MD [address] [place] [address] documented as of this encounter Visit Diagnoses Not on filedocumented in this encounter Additional Health Concerns Infection Onset Date Last Indicated Resolved Time MRSA 03/21/2020 12/25/2020 12/25/2022 1:22 AM EDT Assessment Noted Time PHQ-2 Depression Total Score: 0 10/16/19 3:11 PM EDT documented as of this encounter Care Teams Manager Of Manufacturing Relationship Specialty Start Date End Date Chaparro Alvarez MD [address] [place] [address] PCP - General Internal Medicine 10/06/19 03/29/25 Chaparro Alvarez MD [address] [place] [address] PCP - General Internal Medicine 05/02/25 Adam Sánchez MD [address] [place] [phone] Internal Medicine 04/18/20 08/30/22 Jose Daniel Castellanos MD [address] [place] [address] Otolaryngology 04/18/20 Adam Sánchez MD [address] [place] [phone] Gastroenterology 08/31/22 documented as of this encounter Additional Source Comments The information contained in this document represents components of the legal health record. It is not the complete legal health record.[facility]
--- OUTSIDE RECORDS SUMMARY | 2025-05-11 12:22 | XMS_ITS | Data Portability ---
Author Organization ROGELIO [facility]ertas [facility], [address] Address [address] [place] [address] Care Team Providers Care Molasses And Caramel Operator Name Role Phone JEAN JOSEPH Primary Care Provider [phone] Assessment No assessment recorded. Plan of Treatment Reminders Order Date Submit Date Provider Last Modified By Organization Details Last Modified Time Details Appointments None recorded. Lab rapid SARS CoV 2 Ag, QL IA, respiratory specimen 2022 023 [facility], [address] [place] [address], [id number], 3 12:11:49 Referral None recorded. Procedures None recorded. Surgeries None recorded. Imaging None recorded. Medication Orders benzonatate 200 mg capsule 2022 023 [id number], [address], [place], [id number], 3 12:11:58 prednisone 20 mg tablet 2022 023 [place] [facility]122, [address], [place], [id number], 3 12:11:57 albuterol sulfate HFA 90 mcg/actuati on aerosol inhaler 2022 023 [place] [facility] [employer] [facility] #41475, [address], [place], [id number], 3 12:11:56 Allergy Relief (fluticason e) 50 mcg/actuati on nasal spray,suspe nsion 2022 023 [facility], [address], [place], [id number], 12:11:57 Patient TargetsNo targets recorded. Patient Instructions Encounter Date Encounter Id Patient Instructions Last Modified By Organization Details Last Modified Time 08/17/2022 [id number] cough: care instructions [email or web address] Not available 08/17/2022 [...] care for yourself at home? Take an latb-dzn-obabefm pain medicine. Avoid Ibuprofen, Aleve and Aspirin if . If the doctor prescribed antibiotics, take them as directed. Do not stop taking them just because you feel better. You need to take the full course of antibiotics. Be careful when taking tecf-ukh-brkbyhe cold or influenza (flu) medicines and Tylenol [...] wear a mask. For travel guidance, see [facility] s Travel webpage. Do not travel. Stay [...] masking (see below). For travel guidance, see [facility] s Travel webpage. Not available 08/17/2022 12:10:54 Reason for Referral None Reported. Results Created Date Observation Date Name Description Value Unit Range Abnormal Flag Note LastModifiedBy Organization Detail LastModifiedTime 08/17/19 23 08/17/2022 rapid SARS CoV 2 Ag, QL IA, respi rator y speci men Unknown Analyte Normal =Negat parul Not Available [facility] [place], [address], 08/17/2022 11:42:53 08/17/1908/17/2022 rapid SARS CoV 2 Ag, QL IA, respi rator y speci men Unknown Analyte negati ve Not Available [facility] [address] [place], [address], 08/17/2022 11:42:53 Result Notes None recorded. Problems Name Problem SNOMED Code Status Onset Date Resolution Date Notes Provider Name and Address Organization Details Recorded Time Hypertensive disorder 49990561 Active 2022 ROGELIO Moctezuma - [facility] 3 11:38:17 Cirrhosis of liver 11841817 Active 2022 Sylvia hcong [place] - [facility] 3 11:38:47 Problem [...] Name and Address Organization Details Recorded Time 521198 vancomyci n medicatio n anaphylax is Not available Not available 08/17/2022 35454 [facility]Norm Sylvia chong [facility] 3 11:34:58 Medications Name [...] e) 50 mcg/actuati on nasal spray,suspe nsion [place] 1 spray twice a day by intranasa [...] Updated DateTime 3 170.18 cm 29.3 kg/m2 97679.7 7 g 0 98 % 98 % 72 /min 18 /min 97.6 [degF] 117/80 mm[Hg] Sylvia Manzano [facility] 3 11:42:03 Social History Question Answer Notes LastModified by Bharat Matrimony ion Details LastModified Time Tobacco Smoking Status Never Smoker [facility]IO [facility] 08/17/2022 11:39:32 Have You Recently Traveled Abroad? No Information not available 08/17/2022 Sex: Unknown Functional Status Question Answer Note LastModified by Bharat Matrimony ion Details LastModified Time Do you use [...] [facility] 08/17/2022 11:34:42 Pneumococcal conjugate PCV20, polysaccharide XZS094 conjugate, adjuvant, PF 2 completed Sylvia Monfette [...] ICD10 Code Diagnosis IMO Codes Diagnosis Note [id number] [facility] [address] [place] [address] 07/26/2021 09:27:31 07/26/2021 10:26:49 [id number] [facility] _[facility] [address] [place] [address] 03/12/2018 09:59:03 03/12/2018 11:14:21 [id number] [address] [address] [place] [address] 11/26/2016 18:44:26 11/26/2016 19:14:47 [id number] [facility] [address] [place] [address] 02/02/2018 16:56:21 02/02/2018 17:20:23 [id number] [facility] inSt [address] [place] [address] 07/23/2018 10:12:25 07/23/2018 12:12:54 [id number] [facility] [address] [place] [address] 12/17/2018 10:55:50 12/17/2018 12:06:40 [id number] [facility] [place] [address] 01/20/2015 09:55:44 01/20/2015 10:58:31 [id number] Ted Early NP [address] [place] [address] 08/17/2022 09:10:01 08/17/2022 12:14:16 Exposure to SARS-CoV-2 776462679 Z20.822 Acute sinusitis 13298378 J01.90 Acute bronchitis 5630876 2 J20.9 Health Concerns Section Related Observation LastModified by Organization Detai ls LastModified Time None Recorded Concern Status LastModified by Organization Details LastModified Time None Recorded Advance Directives Directive None Recorded Payers Insurance Date Sequence Insurance Name Policy Number Policy Reyes Covered Member ID Reyes Member ID Guarantor Name 08/17/2022 1 [facility] [id number] Liz R Abdelarhman [id number] Liz R Abdelrahman 08/17/2022 1 [facility] TYPE I (HMO) [id number] Liz R Abdelrahman [id number] Liz R Abdelrahman 08/17/2022 1 [facility] [id number] Liz R Abdelrahman [id number] Liz R Abdelrahman Notes Date Note Type Note Provider Name and Address Organization Details Recorded Time 08/17/2022 text/html CongestionReport ed by Patientnasal congestion with post nasal drip x 3 days. denies nay fever or fever with chills. no SOB or respiratory distress. CoughReported by Patient Ted Early NP [address] [place], [address], [place] - [facility] 08/17/2022 12:12:51 OBGyn Episode No OBEpisode recorded.
--- OUTSIDE RECORDS SUMMARY | 2025-05-11 12:22 | XMS_ITS | Encounter Summary ---
Author Organization [facility] Address [address] [place] [address] Phone Care Team Providers Care Dry House Wheeler Name Role Phone Chaparro Alvarez MD Primary Care Provider [phone] Adam Sánchez MD Unavailable [phone] Jose Daniel Castellanos MD Unavailable [phone] Adam Sánchez MD Unavailable [phone] Chaparro Alvarez MD Primary Care Provider [phone] Encounter Details Date Type Department Care Team (Late st Contact Info) Description 10/08/2020 Procedure Pass [facility] [place] [address] Social History Tobacco Use Types Packs/Day Years [...] Description 05/21/2025 11:00 AM EST Office Visit [facility] Internal Medicine [address] [place], [place] [phone] Chaparro Alvarez MD [address] [place] [address] documented as of this encounter Visit Diagnoses Not on filedocumented in this encounter Additional Health Concerns Infection Onset Date Last Indicated Resolved Time MRSA 03/21/2020 12/25/2020 12/25/2022 1:22 AM EDT Assessment Noted Time PHQ-2 Depression Total Score: 0 08/16/19 21 8:10 AM EST documented as of this encounter Care Teams Dry House Wheeler Relationship Specialty Start Date End Date Chaparro Alvarez MD [address] [place] [address] PCP - General Internal Medicine 10/06/19 03/29/25 Chaparro Alvarez MD [address] [place] [address] PCP - General Internal Medicine 05/02/25 Adam Sánchez MD [address] [place] [address] Internal Medicine 04/18/20 08/30/22 Jose Daniel Castellanos MD [address] [place] [address] Otolaryngology 04/18/20 Adam Sánchez MD [address] [place] [address] Gastroenterology 08/31/22 documented as of this encounter Additional Source Comments The information contained in this document represents components of the legal health record. It is not the complete legal health record.[facility]
--- OUTSIDE RECORDS SUMMARY | 2025-05-11 12:22 | XMS_ITS | Encounter Summary ---
Author Organization [facility] Address [address] [place] [address] Phone Care Team Providers Care Director Recreation Name Role Phone Chaparro Alvarez MD Primary Care Provider [phone] Adam Sánchez MD Unavailable [phone] Jose Daniel Castellanos MD Unavailable [phone] Adam Sánchez MD Unavailable [phone] Chaparro Alvarez MD Primary Care Provider [phone] Encounter Details Date Type Department Care Team (Late st Contact Info) Description 10/21/2020 Procedure Pass [facility] PERIOP DEPT [address] [place], [place] [id number] Social History Tobacco Use Types Packs/Day Years [...] Description 05/21/2025 11:00 AM EST Office Visit [facility] Internal Medicine [address] [place], [place] [phone] Chaparro Alvarez MD [address] [place], [place] [phone] documented as of this encounter Visit Diagnoses Not on filedocumented in this encounter Additional Health Concerns Infection Onset Date Last Indicated Resolved Time MRSA 03/21/2020 12/25/2020 12/25/2022 1:22 AM EDT Assessment Noted Time PHQ-2 Depression Total Score: 0 08/16/19 21 8:10 AM EST documented as of this encounter Care Teams Director Recreation Relationship Specialty Start Date End Date Chaparro Alvarez MD [address] [place] [address] PCP - General Internal Medicine 10/06/19 03/29/25 Chaparro Alvarez MD [address] [place] [address] PCP - General Internal Medicine 05/02/25 Adam Sánchez MD [address] [place] [address] Internal Medicine 04/18/20 08/30/22 Jose Daniel Castellanos MD [address] [place] [address] Otolaryngology 04/18/20 Adam Sánchez MD [address] [place] [address] Gastroenterology 08/31/22 documented as of this encounter Additional Source Comments The information contained in this document represents components of the legal health record. It is not the complete legal health record.[facility]
--- OUTSIDE RECORDS SUMMARY | 2025-05-11 12:22 | XMS_ITS | Clinical Summary ---
Author Organization [facility] Address [address] [place] [id number] Phone Care Team Providers Care Shredded Filler Cutter Operator Name Role Phone Jose Daniel Castellanos MD Unavailable [phone] Adam Sánchez MD Unavailable Chaparro Alvarez MD Primary Care Provider [phone] Allergies Active Allergy Reactions Criticality Noted Date Comments Adhesive Itching,Rash Low 05/22/2019 Latex Rash Low 05/22/2019 Scopolamine Base Palpitations,Hypotension Low 05/25 Scopolamine patch Vancomycin Hives,Shortness Of Breath High 03/14/2018 Cetirizine Rash Low 04/21/2021 Medications acetaminophen (TYLENOL) 500 MG tablet Take 500 mg by mouth daily as needed for pain (specific location in comments). Active cholecalciferol (VITAMIN D3) 2,000 unit tablet Take 1 tablet (2,000 Units total) by mouth daily. 1 Active Additional Information Patient not taking.Reported on 11/21/2024 carvedilol (COREG) 6.25 MG tablet Take 6.25 mg by mouth 2 (two) times a day. 3 Active mupirocin (BACTROBAN) 2 % ointment Apply topically 2 (two) times a day. 22 g 3 3 Active budesonide 0.6 mg compounded for sinus rinse incorporation capsule Add 1 capsule (0.6 mg total) to 240 mL Neilmed sinus rinse and use nasally twice a day as directed. 180 capsule 3 4 Active levoFLOXacin 100 mg compounded for sinus rinse incorporation capsule Add 1 capsule (100 mg total) to 240 mL Neilmed sinus rinse and use nasally 2 (two) times a day as directed. 180 capsule 2 4 Active azithromycin (ZITHROMAX) 250 MG tablet Take one tablet (250mg) on Wednesday, Wednesday, and Wednesday for 3 months 36 tablet 4 Active Additional Information Patient taking differently: Take one tablet (250mg) on Wednesday, Wednesday, and Wednesday for 3 monthsPRN for sinusitis, Reported on 11/21/2024 butalbital-acetam inophen-caffeine (FIORICET, ESGIC) 50-325-40 mg per tabletIndications :Migraine Take 1 tablet by mouth every 6 (six) hours as needed for pain (specific location in comments). 30 tablet 1 5 Active LORazepam (ATIVAN) 0.5 MG tabletIndications :Anxiety 1-2 tablets 1 hour before dental procedure. 10 tablet 5 Active lisinopril (PRINIVIL,ZESTRIL ) 5 MG tabletIndications :Type 2 diabetes mellitus without complication, without long-term current use of insulin,Essential hypertension Take 1 tablet (5 mg total) by mouth every morning. 90 tablet 3 5 Active metFORMIN (GLUCOPHAGE-XR) 500 MG 24 hr tabletIndications :Type 2 diabetes mellitus with hyperglycemia, without long-term current use of insulin Take 2 tablets (1,000 mg total) by mouth daily with dinner. 180 tablet 3 5 Active Active Problems Problem Noted Date Diagnosed Date COVID-19 01/11/2024 Family history of breast cancer 10/08/2021 Overview (03/30/2024): Roland 2 03/09/24 letter mailed Chronic sinusitis 09/29/2021 Age-related osteoporosis wit hohugo current pathological fracture 01/09/2021 Assessment & Plan (02/13/2022 8:54 AM EDT): Unfortunately the patient was not approved for Prolia subcutaneous injection. She is concerned about using bisphosphonates with esophageal lesions. We have opted to proceed with Reclast. I requested a basic metabolic panel and vitamin D that she probably will need to be done in 2 weeks prior to infusion. I requested DXA scan for the follow-up visit and also requested bone turnover markers to be done anytime. Assessment & Plan (02/13/2021 11:10 AM EDT): I did not find any additional secondary risk factors for osteoporosis. I discussed antiresorptive medications with her. I did discuss the oral bisphosphonates but she has lesions of the esophagus secondary to cirrhosis so she is concerned that this may cause more problems to her esophagus. I did discuss that this IV reclast does administer once a year through medical day stay. This medication may be associated with flulike symptoms. There is also Prolia subcutaneous injection every 6 months which is she will have to come into the office for administration. There are anabolic hormones but I do not think she will be covered for that because she has not had any vertebral compression fractures. I did explain that these are daily injections for up to 2 years that she would do herself. The patient has decided to do Prolia subcutaneous injection every 6 months. However we have to try to get prior authorization from the insurance company. I reviewed that Denosumab (Prolia) is a q 6 month subcutaneous injection that has good bone density and fracture data. It s mechanism of action is as a monoclonal antibody directed against RANK ligand. It acts as an antiresorptive agent on the bones by suppressing formation of osteoclasts. It is indicated for osteoporosis in women and men, bony metastases in breast, prostate and other solid tumors, and is approved for aromatase inhibitor bone loss. Potential side effects include injection site pain and swelling (short lived), rash, infection, osteonecrosis of the jaw (5.2 out 10,000 patients) and possibly atypical femur fractures (0.8 out of 10,000). It is necessary to stay current with calcium and Vitamin D intake as hypocalcemia can develop. Labs were reviewed and there is no hypocalcemia. Denosumab ten year data has been presented and shows continued increases in BMD (lumbar spine 21.7% increase in BMD, and hip was 9.2% increase in BMD over 10 years) and continued fracture risk reduction (68% vertebral and hip, 40% non-vertebral, 20% for hip over a three year period) without significant increases in potential side effects. The patient has been instructed to call our office if any symptoms develop or if pain in the thigh develops. Assessment & Plan (01/09/2021 11:53 AM EDT): This is a patient who was diagnosed with osteoporosis on 11/27/2020. She has at least 1 fragility fracture. She is lost 0.75 inches in height. Risk factors for osteoporosis include age, menopause, use of topiramate and vitamin D deficiency. Possibly decrease calcium intake. Currently she is taking Caltrate appropriate calcium intake and vitamin D intake. She will require repeat vitamin D level but I think we should wait at least 3 months. At this point I would like to obtain 24- hour urine calcium levels, N-telopeptide level and serum protein electrophoresis although it is unlikely that the patient has multiple myeloma hemoglobin, hematocrit, serum calcium, GFR, are all in the reference range total protein is in the reference range as well albumin is slightly low. I will hold off discussing medications for the treatment of osteoporosis onto the follow-up visit after I checked for secondary causes of osteoporosis. 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 Also has esophageal varices Need for zoster vaccination 10/17/2019 Fatty liver 10/17/2019 Encounters Date Type Department Care Team Description 03/27/2025 Telephone [facility] Internal Medicine [address] [facility] [place] [address] Chaparro Alvarez MD Appointment 03/26/2025 Telephone [facility] Internal Medicine [address] [place] [address] Chaparro Alvarez MD Joint Swelling 03/13/2025 Orders Only [facility] Internal Medicine [address] [facility] [place] [address] ProviderTerence MD 02/19/2025 Refill [facility] Internal Medicine [address] [facility] [place] [address] Chaparro Alvarez MD Medication Refill 02/15/2025 Telephone [facility] Internal Medicine [address] [facility] [place] [address] Chaparro Alvarez MD Medication from Last 3 Months Immunizations Immunization Administration Dates Next Due COVID-19 (Pre-04/26) Moderna Vaccine, mRNA, PF 10/04/2020,09/06/2020 COVID-19 Pfizer Comirnaty Vaccine 12+ 04/16/2023 Hepatitis A, Adult 12/14/2017 Hepatitis B Adult 05/18/2018,12/17/2017,11/18/19 18 INFLUENZA, SPLIT VIRUS, TRIVALENT PF 04/20/2024, 06/11/2016 Influenza Quadrivalent MDCK Preservative Free IM 04/16/2023 Influenza Quadrivalent Prese rvative Free IM 04/10/2022,04/21/2021,04/18/2020,06/13 Influenza Quadrivalent w/ Pr eservative IM 03/28/2019,05/18/2018,04/15/2017 Influenza, Unspecified Formulation 04/04/2019 Pneumococcal conjugate PCV20 04/10/2022 Pneumococcal polysaccharide PPSV23 05/08/2019,,11/24/2011 RSV Vaccine (monovalent, adjuvanted) 05/22/2024 Td, unspecified formulation 10/03/2018 Tdap 05/18/2018 Zoster recombinant 08/19/2020,04/18/2020 Family History Medical History Relation Comments Heart disease Brother Allergic rhinitis Daughter 1 Asthma Daughter 1 Eczema Daughter 1 Urticaria Daughter 1 Eczema Daughter 2 Breast cancer Mother Food Allergy Mother Allergic rhinitis Sister 1 Asthma Sister 1 Breast cancer Sister 1 Eczema Sister 1 Urticaria Sister 1 Allergic rhinitis Sister 2 Asthma Sister 2 Epistaxis Neg Hx Sinusitis Neg Hx Relation Status Comments Brother (Age 61) heart chf Daughter 1 Alive 28 and 30 Daughter 2 Father Alive migraines,htn, Mother Sister 1 Alive Sister 2 Social History Tobacco Use Types Packs/Day Years Used Date Smoking Tobacco: Never Smokeless Tobacco: Never Tobacco Cessation:Counseling Given: Not Answered Alcohol Use Standard Drinks/Week Comments Never 0 [...] high school, GED, job training, learning the [place] language, technical skills, or developing parenting skills)? [...] Orientation Straight 04/15/2020 10 :08 AM EDT Last Filed Vital Signs Vital Sign Reading Time Taken Comments Blood Pressure 110/60 11/21/2024 3:56 PM EDT Pulse 71 11/21/2024 3:56 PM EDT Temperature 37.3 C (99.2 F) 11/21/2024 3:56 PM EDT Respiratory Rate 20 11/21/2024 3:56 PM EDT Oxygen Saturation 98% 11/21/2024 3:56 PM EDT Inhaled Oxygen Concentration - - Weight 83.3 kg (183 lb 9.6 oz) 11/21/2024 3:56 P M EDT Height 171.5 cm (5' 7.52 ) 11/21/2024 3:56 PM ED T Body Mass Index 28.31 11/21/2024 3:56 PM EDT Plan of Treatment Upcoming Encounters Date Type Department Care Team (Late st Contact Info) Description 05/21/2025 11:00 AM EST Office Visit [facility] Internal Medicine [address] [place] [address] Chaparro Alvarez MD [address] [place] [address] [email or web address] Health Maintenance Due Date Last Done Comments COLOGUARD 01/14/2005 FIT TEST 01/14/2005 FOBT 01/14/2005 SIGMOIDOSCOPY 01/14/2005 VIRTUAL COLONOSCOPY 01/14/2005 HEPATITIS A VACCINES (2 of 2 - Risk 2-dose series) 06/15/2018 12/14/2017 INFLUENZA VACCINE (#1) 2025 , 04/16/2023, 04/10/2022, Additional history exists COVID-19 VACCINE ( season) 2025 05/05/2024, 04/16/2023, 05/12/2022, Additional history exists DEPRESSION SCREENING 04/14/2025 04/14/2024 HEMOGLOBIN A1C 04/20/2025 10/19/2024, 04/04, 07/08/2023, Additional history exists BLOOD PRESSURE 05/24/2025 11/21/2024 DIABETIC EYE EXAM 09/26/2025 09/26/2024, , 04/21/2021, Additional history exists LIPID PANEL 10/11/2025 10/11/2024, 10/2023, 02/26/2023, Additional history exists CREATININE LEVEL 10/19/2025 10/19/2024, , 07/08/2023, Additional history exists POTASSIUM LEVEL 10/19/2025 10/19/2024, 04/04, 07/08/2023, Additional history exists MAMMOGRAM 03/12/2027 03/12/2025, 090 11/2023, 03/09/2024, Additional history exists COLONOSCOPY 11/10/2027 11/09/2017 COLORECTAL CANCER SCREENING 11/10/2027 Adult Td,Tdap Booster 10/03/2028 10/03/2018, 018 HEPATITIS C SCREENING Completed 10/22/2017 ZOSTER VACCINES Completed 08/19/2020, 04/18/2020 HIV ONE-TIME SCREENING (18-65 YEARS) Completed 12/06/2020 PNEUMOCOCCAL VACCINES (50+ years) Completed 04/10/2022, 05/08/2019, 09/04/2016, Additional history exists OSTEOPOROSIS SCREENING INITIAL (ONE-TIME) Completed 01/26/2023, 11/27/2020 RSV VACCINE Completed 05/22/2024 SMOKING STATUS SCREENING (Once After 26 Yrs) Completed 01/01/2025 HIB VACCINES Aged Out No longer eligi ble based on patient's age to complete this topic MENINGOCOCCAL VACCINES (ACWY) Aged Out No longer eligible based on patient's age to complete this topic MENINGOCOCCAL VACCINES (B) Aged Out N o longer eligible based on patient's age to complete this topic Medical Devices Implanted Type Area [employer] Glass Specialist Device Identifier Shelf Expiration Date Model / Serial / Lot Lens Bilateral: Eye Stent System 16mm 370 Micrograms Delivery Drug Sinus Propel Mometasone Furoate Bioabsorbable Mini - [id number] Implanted:Qty: 1 on 05/25/2019 by Jose Daniel Castellanos MD at [facility] Left: Sinus INTERSECT ENT 12/07/2019 [id number] / / [id number] Procedures Procedure Name Priority Date/Time Associated Diagnosis Comments MAMMOGRAPHY Routine 03/12/2025 11:46 AM EDT HEMOGLOBIN A1C Routine 10/19/2024 9:24 AM EDT Type 2 diabetes mellitus with hyperglycemia, without long-term current use of insulin COMPREHENSIVE METABOLIC PANEL (CMP) Routine 10/19/2024 9:24 AM EDT Secondary esophageal varices without bleeding LIPID PANEL Routine 10/11/2024 8:05 AM EDT Type 2 diabetes mellitus with hyperglycemia, without long-term current use of insulin Type 2 diabetes mellitus without complication, without long-term current use of insulin DIABETES EYE EXAM FOR RESULT ENTRY ONLY Routine 09/26/2024 BD DXA AXIAL (SPINE) WITH HIP Routine 01/26/2023 9:10 AM EDT Age-related osteoporosis without current pathological fracture COLONOSCOPY FOR RESULT ENTRY ONLY Routine 11/09/2017 OUTSIDE HEPATITIS C VIRUS SCREENING Routine 10/22/2017 from Last 3 Months or Most Recently Relevant to Health Maintenance Results * MAMMOGRAPHY FOR RESULT ENTRY ONLY (03/12/2025 11:46 AM EDT) Historical Provider HEALTH MAINTENANCE Final Result * (ABNORMAL) Comprehensive metabolic panel (10/19/2024 9:24 AM EDT) SODIUM 141 133 - 146 mmol/L [facility] POTASSIUM 4.2 3.3 - 5.1 mmol/L [facility] CHLORIDE 107 96 - 108 mmol/L [facility] CO2 26 21 - 35 mmol/L [facility] BUN 10 6 - 19 mg/dL [facility] CREATININE 0.40(L) 0.5 - 1.5 mg/dL [facility] GLUCOSE 113(H) 70 - 99 mg/dL [facility] ALBUMIN 3.5(L) 3.9 - 4.8 g/dL [facility] TOTAL PROTEIN 6.6 6.5 - 8.0 g/dL [facility] CALCIUM 8.9 8.4 - 10.3 mg/dL [facility] ALKALINE PHOSPHATASE 101 39 - 117 U/L [facility] TOTAL BILIRUBIN 2.1(H) 0.0 - 1.2 mg/dL [facility] AST 26 0 - 37 U/L [facility] ALT 13 0 - 40 U/L [facility] GLOBULIN 3.1 1 - 4.8 g/dL [facility] EGFR 110 >59 mL/min/1.7 3m2 [facility] Comment:Estimated glomerular filtration rate calculated using the CKD-EPI refit equation. ANION GAP 12 10 - 20 mmol/L [facility] Blood 10/19/2024 9:24 AM EDT 10/19/2024 9:26 AM EDT Chaparro Alvarez MD LAB BLOOD BKR ORDERABLES Christina martinze Result [facility] [address] [place] [address] * Hemoglobin A1c (10/19/2024 9:24 AM EDT) HEMOGLOBIN A1C 5.1 4.3 - 5.8 % [facility] Blood 10/19/2024 9:24 AM EDT 10/19/2024 9:26 AM EDT us Chaparro Alvarez MD LAB BLOOD BKR ORDERABLES Christina l Result Performing Organization Address [facility] Co de Phone Number [address] [address] * (ABNORMAL) Lipid panel (10/11/2024 8:05 AM EDT) HDL 62 mg/dL [facility] Comment: Interpretation <40 mg/dL: Low HDL cholesterol (major risk factor for CHD) Greater than or equal to 60 mg/dL: High HDL cholesterol ( negative risk factor for CHD) HDL - cholesterol is affected by a number of factors, e.g. smoking, excerise, hormones, sex and age. CHOLESTEROL 153 0 - 240 mg/dL [facility] TRIGLYCERIDES 66 30 - 160 mg/dL [facility] LDL 78 50 - 129 mg/dL [facility] Comment: LDL levels in terms of risk for coronary heart disease: <100 mg/dL: Optimal 100-129 mg/dL: Near or above optimal 130-159 mg/dL: Borderline high 160-189 mg/dL: High >190 mg/dL: Very High CARDIAC RISK RATIO 2.5(L) 3.3 - 4.4 [facility] Blood 10/11/2024 8:05 AM EDT 10/11/2024 8:08 AM EDT us Chaparro Alvarez MD LAB BLOOD BKR ORDERABLES Christina l Result Performing Organization Address City/[facility]/ZIP Co de Phone Number [address] [address] * DIABETES EYE EXAM FOR RESULT ENTRY ONLY (09/26/2024) HM EYE EXAM no diabetic retinopathy us Historical Provider HEALTH MAINTENANCE Final Result * BD DXA AXIAL (SPINE) WITH HIP (01/26/2023 9:10 AM EDT) Anatomical Region Laterality Modality Bone Density Bone Density 02/02/2023 1:59 PM EDT Impressions 02/02/2023 5:43 PM EDT Bone mineral density falls within the osteoporosis range. No statistically significant changes compared with 11/27/2020. Narrative 02/02/2023 5:43 PM EDT This is a 63-year-old female with a history of osteoporosis. Compared with prior study 11/27/2020. Evaluation of the lumbar spine right hip is obtained and appears technically adequate. The lumbar spine from L1 through L4 discloses a total bone mineral density of 0.715 g/cm2 with a T-score of -3.0. Z score -1.4. This is in the osteoporosis range. No statistically significant change compared with 11/27/2020 The right hip (total) has a total bone mineral density of 0.616 g/cm2 with a T-score of -2.7. Z score -1.6. This is in the osteoporosis range. No statistically significant change compared with 11/27/2020 The right hip (neck) has a total bone mineral density of 0.469 g/cm2 with a T- score of -3.4. Z score -2.0. Procedure Note Jemal Chavis MD - 02/02/2023 This is a 63-year-old female with a history of osteoporosis. Compared with prior study 11/27/2020. Evaluation of the lumbar spine right hip is obtained and appearstechnically adequate. The lumbar spine from L1 through L4 discloses a total bone mineral densityof 0.715 g/cm2 with a T-score of -3.0. Z score -1.4. This is in theosteoporosis range. No statistically significant change compared with11/27/2020 The right hip (total) has a total bone mineral density of 0.616 g/pe3dyfb a T- score of -2.7. Z score -1.6. This is in the osteoporosis range.No statistically significant change compared with 11/27/2020 The right hip (neck) has a total bone mineral density of 0.469 g/cm2 witha T- score of -3.4. Z score -2.0. IMPRESSION: Bone mineral density falls within the osteoporosis range. No statisticallysignificant changes compared with 11/27/2020. Jeremías Quick DO IMG BD BONE DENSITY DEXA Final R esult * COLONOSCOPY FOR RESULT ENTRY ONLY (11/09/2017) [facility] Colonoscopy 10 year repeat Historical Provider HEALTH MAINTENANCE Final Result * Outside Hepatitis C Virus Screening (10/22/2017) [facility] Hepatitis C Screening - External Neg Historical Provider LAB BLOOD ORDERABLES Christina l Result from Last 3 Months or Most Recently Relevant to Health Maintenance Insurance [address] MEDICARE PPO BLUE REPLACEMENT [address] MEDICARE PPO BLUE REPLACEMENT . [address] MED[address]ARE PPO BLUE REPLACEMENT . [address] MEDICARE PPO BLUE REPLACEMENT MEDICARE PPO BLUE REPLACEMENT , [address] [place] MEDICARE PPO BLUE REPLACEMENT , [address] [id number] , [address] [id number] , [address] Advance Directives For more information, please contact: [phone] (9AM - 5PM [facility], Wednesday-Wednesday) Documents on File Type Date Recorded Patient Junior Systems Engineer Expl anation Healthcare Proxy 10/22/2020 2:06 PM Care Teams Shredded Filler Cutter Operator Relationship Specialty Start Date End Date Chaparro Alvarez MD [address] [place] [address] [email or web address] PCP - General Internal Medicine 05/02/25 Jose Daniel Castellanos MD [email or web address] Otolaryngology 04/18/20 Adam Sánchez MD [address] [place] [id number] Gastroenterology 08/31/22 Additional Source Comments The information contained in this document represents components of the legal health record. It is not the complete legal health record.[facility]
--- OUTSIDE RECORDS SUMMARY | 2025-05-11 12:22 | XMS_ITS | Data Portability ---
Author Organization [place] - [facility], Allergy Address [address] [place] [address] Assessment Encounter Date Assessment Date Assessment LastModified [...] Organization Details Recorded Time General unsteadin ess 312146097 Active 2018 Unsteadin ess on feet; Note: Date Diagnosed : 02/21/2019 4:04 PM (R26.81) Not Available [facility] 4 02:46:44 Sensorine ural hearing loss of bilateral ears 631079054 Active 2018 Sensorine ural hearing loss, bilateral ; Note: Date Diagnosed : 02/21/2019 4:05 PM (H90.3) Not Available [facility] 4 02:46:40 Dizziness and giddiness 407180589 Active 2018 Dizziness and giddiness ; Note: Date Diagnosed : 02/21/2019 4:04 PM (R42) Light-h eadedness ; Note: Date Diagnosed : 02/21/2019 4:04 PM (R42) Not Available [facility] 4 02:46:39 Chronic sinusitis 90177592 Active 2018 Other chronic sinusitis ; Note: Date Diagnosed : 02/28/2019 12:20 PM (J32.8) Not Available [facility] 4 02:46:43 Headache 57837379 Active 2018 Headache; Note: Date Diagnosed : 03/29/2019 9:00 AM (R51) Facial pain NOS; Note: Date Diagnosed : 02/21/2019 4:04 PM (R51) ; Start Date : 9 Not Available [facility] 4 02:46:40 Recurrent aphthous stomatiti s 402005862 Active 2018 Aphthous stomatiti s (major) (minor); Note: Date Diagnosed : 9 2:15 PM (K12.0) Not Available [facility] 4 02:46:37 Recurrent acute sinusitis 121617906 Active 2019 Other acute recurrent sinusitis ; Note: Date Diagnosed : 09/12/2019 9:14 AM (J01.81) Not Available [facility] 4 02:46:43 Localized swelling of head 70696012562 982732 Active 2019 Localized swelling, mass and lump, head; Note: Date Diagnosed : 09/12/2019 9:09 AM (R22.0) Not Available [facility] 4 02:46:37 Chronic pansinusi tis 88272532 Active 2019 Chronic pansinusi tis; Note: Date Diagnosed : 12/08/2019 3:22 PM (J32.4) Not Available [facility] 4 02:46:43 Acute serous otitis media of left ear 22369151441 15996 Active 2019 Acute serous otitis media, left ear; Note: Date Diagnosed : 02/16/2020 1:44 PM (H65.02) Not Available [facility] 4 02:46:41 Follow-up visit Active 2019 Encounter for follow-up examinati on after completed treatment for condition s other than malignant neoplasm; Note: Date Diagnosed : 03/28/2020 10:02 AM (Z09) Not Available [facility] 4 02:46:41 Allergic rhinitis 28151406 Active 2019 Allergic rhinitis, unspecifi ed; Note: Date Diagnosed : 0 4:51 PM (J30.9) Not Available [facility] 4 02:46:38 Mixed conductiv e and sensorine ural hearing loss of right ear 34592681451 105 Active 2022 Mixed conductiv e and sensorine ural hearing loss, unilatera l, right ear with restricte d hearing on the contralat eral side; Note: Date Diagnosed : 12/04/2022 2:09 PM (H90.A31) Not Available [facility] 4 02:46:37 Sensorine ural hearing loss in left ear 68946677333 109 Active 2022 Sensorine ural hearing loss, unilatera l, left ear, with restricte d hearing on the contralat eral side; Note: Date Diagnosed : 12/04/2022 2:09 PM (H90.A22) Not Available [facility] 4 02:46:40 Acute serous otitis media of right ear 13738892236 71872 Active 2022 Acute serous otitis media, right ear; Note: Date Diagnosed : 12/04/2022 1:47 PM (H65.01) Not Available [facility] 4 02:46:39 Dysfuncti on of right eustachia n tube 67148253224 54035 Active 2023 Nevaeh Ketbraden chong, [facility] 4 13:33:40 Problem Notes None recorded. Procedures Surgical History Date Name Laterality Status Provider Name and Address Organization Details Recorded Time 01/11/20 24 Tympanometry - 45588 completed NELL WYLIE, AUD 100 [facility] [place],[address], [address], [facility] 01/11/2024 14:37:03 12/28/19 24 Tympanometry - 83192 completed CARLOS JENNINGSLISA, AUD 100 [facility] [place],HENRY [facility], [place], [address], [facility] 12/28/2023 13:38:00 Imaging Results None recorded. Procedure Notes None recorded. Medical Equipment None Reported. Allergies Allergen ID Allergen Name Allergen Category Reaction Reaction Severity Criticality Documentation Date Start Date Code Code System Note Provider Name and Address Organization Details Recorded Time 672505 amoxicill in medicatio n other Not available Not available 11/16/2023 723 RxNorm React ion: unkno wn, unspe cifie d;; Not Available [facility] 4 01:14:27 Medications Name Sig Start Date Stop Date Status Note LastModified by Organization Details LastModified Time carvedilo l 6.25 mg tablet TAKE 1 TABLET BY MOUTH TWICE A DAY active Not Available Not Available No t Available prednison e 10 mg tablet by mouth 12/04 completed Medicati on ID: [id number] P rescribe d By Name: Christina basilio [...] mg capsule 2019 active Medicati on ID: 755651 D uration Value: 10 Prescri bed By [...] drops Apply 2022 active Medicati on ID: [id number] B rand Name: ofloxaci n Send Method: E-Prescr ibed Sub s Allowed: subs OK Speci al Instruct ion: apply 5 drops to affected ear BID x 3 days Med icationG enericNa me: ofloxaci n Not Available Not Available Not Available benzonata te 200 mg capsule active Medicati on ID: 155092 B rand Name: benzonat ate Send Method: [...] mg tablet 02/21 completed Medicati on ID: 310781 D uration Value: 90 Reason: () Brand Name: nadolol Send Method: E-Prescr ibed Sub s Allowed: subs OK Medic ationGen ericName : nadolol Not Available Not Available Not Available doxycycli ne monohydra te 100 mg capsule 1 capsule by mouth 2019 active Medicati on ID: 607229 D uration Value: 10 Prescri bed By Name: Christina basilio MD Brand Name: doxycycl ine monohydr ate Send Method: E-Prescr ibed Sub s Allowed: subs OK Medic ationGen ericName : doxycycl ine monohydr ate Not Available Not Available Not Available lisinopri l 5 mg tablet active Medicati on ID: 502387 B rand Name: lisinopr il Send Method: E-Prescr ibed Sub s Allowed: subs OK Medic ationGen ericName : lisinopr il Not Available Not Available Not Available albuterol sulfate HFA 90 mcg/actua tion aerosol inhaler active Medicati on ID: 750724 B rand Name: albutero l sulfate Send Method: E-Prescr ibed Sub s Allowed: subs OK Medic ationGen ericName : albutero l sulfate Not Available Not Available Not Available fluticaso ne propionat e 50 mcg/actua tion nasal spray,[employer] pension active Medicati on ID: 115396 B rand Name: fluticas one propiona te Send Method: E-Prescr ibed Sub s Allowed: subs OK Medic ationGen ericName : fluticas one propiona te Not Available Not Available Not Available metformin ER 500 mg tablet,ex tended release 24 hr active Medicati on ID: 414624 B rand Name: metformi n Send Method: E-Prescr ibed Sub s Allowed: subs OK Medic ationGen ericName : metformi n Not Available Not Available Not Available doxycycli ne hyclate 100 mg tablet Take 1 tablet by mouth twice a day 2019 active Medicati on ID: 760647 D uration Value: 14 Prescri bed By Name: Christina basilio MD Brand Name: doxycycl ine hyclate Send Method: E-Prescr ibed Sub s Allowed: subs OK Medic ationGen ericName : doxycycl ine hyclate Not Available Not Available Not Available Bactrim DS 800 mg-160 mg tablet 1 tablet by mouth 2019 active Medicati on ID: 578535 D uration Value: 14 Prescri bed By Name: Christina basilio MD Brand Name: Bactrim DS Send Method: E-Prescr ibed Sub s Allowed: subs OK Medic ationGen ericName : Bactrim DS Not Available Not Available Not Available Vitals Date Recorded Body height Body mass index (BMI) Body weight Provider Name and Address Organization Details Last Updated DateTime 12/28/2023 171.45 cm 28.1 kg/m2 80393.81 g Mercy Cummins [place] - [facility] 12/28/2023 13:19:11 Date Recorded Body height Body mass index (BMI) Body weight Provider Name and Address Organization Details Last Updated DateTime 01/11/2024 171.45 cm 27.6 kg/m2 58092.03 g Mercy Cummins [place] - [facility] 01/11/2024 14:15:39 Social History None recorded. Functional [...] Note [id number] NEVAEH REYEZ PA-C [facility] [address] [address] 12/28/2023 13:16:57 12/28/2023 13:55:34 Dysfunction of right eustachian tube 4929545052 322883 H69.91 Right Ear: Type A tympanogra m.Left Ear: Type A tympanogra m 6922 NEVAEH REYEZ PA-C [facility] [address] [address] 01/11/2024 14:12:25 01/11/2024 14:46:28 Dysfunction of right eustachian tube 8300747547 307725 H69.91 Left Ear: Type A tympanogra m. Right Ear: Type A tympanogra m. Health Concerns Section Related Observation LastModified by Organization Detai ls LastModified Time None Recorded Concern Status LastModified by Organization Details LastModified Time None Recorded Advance Directives Directive None Recorded Payers Insurance Date Sequence Insurance Name Policy Number Policy Reyes Covered Member ID Reyes Member ID Guarantor Name 01/08/2024 1 [facility] Liz Abdelrahman [id number] Liz Abdelrahman 01/08/2024 2 [place] [employer] Liz Abdelrahman [id number] Liz Abdelrahman Notes Date Note Type Note [...] tube was placed. YANNICK SAMPSON MD 100 [facility],[address], [address], [facility] - [facility] 12/29/2023 21:36:13 01/11/2024 text/html ROS as noted [...] up a bit. CHRISTINA KIMBROUGH MD 100 [facility], [place], [address], [facility] 01/12/2024 08:26:13 OBGyn Episode No OBEpisode recorded.
--- OUTSIDE RECORDS SUMMARY | 2025-05-11 12:22 | XMS_ITS | Encounter Summary ---
Author Organization [facility] Address [address] [place] [address] [place] [phone] Phone Care Team Providers Care Pressed Or Blown Glass Worker Name Role Phone Chaparro Alvarez MD Primary Care Provider [phone] Adam Sánchez MD Unavailable [phone] Jose Daniel Castellanos MD Unavailable [phone] Adam Sánchez MD Unavailable [phone] Chaparro Alvarez MD Primary Care Provider [phone] Encounter Details Date Type Department Care Team (Late st Contact Info) Description 02/23/2022 Procedure Pass [facility] [address] [place], [place] [id number] Social History Tobacco Use Types Packs/Day Years [...] high school, GED, job training, learning the [place] language, technical skills, or developing parenting skills)? 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 12/25/2020 12/25/2022 1:22 AM EDT Assessment Noted Time PHQ-2 Depression Total Score: 0 08/22/19 22 10:10 AM EST documented as of this encounter Care Teams Pressed Or Blown Glass Worker Relationship Specialty Start Date End Date Chaparro Alvarez MD [address] [place] [address] PCP - General Internal Medicine 10/06/19 03/29/25 Chaparro Alvarez MD [address] [place] [id number] [email or web address] PCP - General Internal Medicine 05/02/25 Adam Sánchez MD [address] [place] [id number] Internal Medicine 04/18/20 08/30/22 Jose Daniel Castellanos MD [address] [place] [phone] [email or web address] Otolaryngology 04/18/20 Adam Sánchez MD [address] [place] [phone] Gastroenterology 08/31/22 documented as of this encounter Additional Source Comments The information contained in this document represents components of the legal health record. It is not the complete legal health record.[facility]
--- OUTSIDE RECORDS SUMMARY | 2025-05-11 12:22 | XMS_ITS | Patient Health Record ---
Author Organization [facility] Address [address] [place] [address] Care Team Providers Care Teletype Installer Name Role Phone Ajay Glez MD Primary Care Provider Unavailabl e Black, Perla Unavailable [phone] Allergies Allergen (clinical drug ingredient) Drug/Non Drug Allergy documented on EMR Reaction Allergy Type Onset Date Status amoxicillin Amoxicillin Unknown Drug Allergy Act parul vancomycin Vancomycin HCl Unknown Drug Allergy A ctive Penicillin Unknown Drug Allergy Active Adhesive Tape Unknown Drug Allergy Act parul Latex Unknown Drug Allergy Active Reason For Referral No Information Medications Medication SIG (Take, Route, Frequency, Duration) Notes Start Date End Date Status Parking . . . .; Duration: . A ctive Lisinopril 5 MG 1 tablet Orally Once a day Active Ontblntkeh-GYZ-Hhmidqye 50-325-40 MG 1 capsule as needed Orally every 4 hrs Active Gabapentin 300 MG 1 capsule Orally Thr ee times a day Active Parking . . . .; Duration: . 12/17/2014 Active Naproxen 375 375 MG 1 tablet Orally Thre e times daily with food; Duration: 30 day(s) 12/17/2014 Active Problems No Known Problems Plan Of Treatment Pending Test Test Name Order Date ,[id number] TENDON SHEATH/LIGAMENT 1 Insurance Providers Payer Name Payer Address Payer Phone Subscriber Number Group Number Insured Name Patient Relationship to Insured Coverage Start Date Coverage End Date [employer] [address] [place] [address] [id number] Liz Quick Self - patient is the insured Medical (General) History Medical History History ICD Code Headaches High blood pressure Chicken pox Surgical History Surgery Date(Month/Year) carpal tunnel surgery both hands 2004 hysterectomy 11/23/2011 eye surgery 06/18/2012 eye surgery 06/01/2012
== END 2025-05-11 11:07 | disposition home or self-care (01) ==
LOC: HO.HMCFM 10:28
PROVIDERS: PCP Nurse Practitioner Family; Visit Provider Nurse Practitioner Family
DX: I25.10 Atherosclerotic heart disease of native coronary artery without angina pectoris (principal); R01.1 Cardiac murmur, unspecified; R00.2 Palpitations; R94.31 Abnormal electrocardiogram [ECG] [EKG]; R30.0 Dysuria

== ENCOUNTER 2025-05-11 11:13 | Outpatient (REF) | payer MEDICARE, SELFPAY | END 2025-05-11 11:14 | disposition home or self-care (01) | LOC: HO.WFDLDS 11:13 | PROVIDERS: Visit Provider Nurse Practitioner Family | DX: Z13.89 Encounter for screening for other disorder (principal) ==

== ENCOUNTER 2025-06-11 11:24 | Outpatient (AMB) | payer MEDICARE, SELFPAY ==
--- NOTE | 2025-06-11 11:27 | A.OFFPC_ITS ---
Vital Signs 06/11/25 11:31 Height 5 ft 7.5 in Weight 172 lb 8 oz BMI 26.6 BP 128/70 Blood Pressure Location Lt brachial Position Sitting Respiration 12 Pulse 68 Pulse Source Pulse Oximeter Temp 97.4 F Temp Source Oral Pulse Oximetry (%) 98 Oxygen Delivery Method Room Air Intake Visit Reasons: 4 weeks close fu Intake Note: 4 Weeks follow up. Patient thinks she has a sinus infection. Ritual Circumciser Required: No Allergies vancomycin (VANCOMYCIN) Allergy (Intermediate, Verified 06/11/25 11:28) RASH, hives, hives, breathing adhesives Allergy (Unknown, Uncoded 06/11/25 11:28) rash Latex Allergy (Unknown, Uncoded 06/11/25 11:28) rash Medication List - Last Reconciled 06/11/25 by Pamela Casper, [facility] [employer]- xffsmkgtnw-smyfuthywfgvx-vapc 50-325-40 mg 1 tab PO Q6H PRN carvedilol 6.25 mg PO BID lisinopril 5 mg PO DAILY lorazepam 0.5 - 1 mg PO metformin ER 1,000 mg (2 x 500 mg) PO QPM onabotulinumtoxinA (Botox) units subcut spironolactone 25 mg PO DAILY Tobacco use date assessed: 06/11/25 Fall risk assessment: No Falls in past year Last assessed Fall Risk: 06/11/25 Dental Screening Dental Screen Date: 06/11/25 Did you have a dental visit in the last 12 months?: Yes Did you have a dental problem in the last 6 months where you did not have access to dental care?: No Was dental information given to patient?: Patient has dentist HPI HPI Comments History of Present Illness Details 65 y/o F with 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, splenomegaly, HTN, DM2, nephrolithiasis, CAD, osteopenia, migraine, chronic occlussive thrombus r portal vein, portal htn SurgHx: hysterectomy, christy, cts release, lens implant bilat, r breast bx, 3 sinus surgeries to fix chronic sinusitis FHx: Dad alive SocHx: , 2 children, and 2 grandchildren, Retired Health Maintenance: Colon: 2018 repeat 2027 Mammo 03/12/25 WNL DEXA PAP Vaccines: UTD on all Specialists: [facility] GI visits q6mo with imaging Dr Gonz[facility] Becca Joshua [facility] History of Present Illness The patient is a 65 year old female presenting with interim follow-up for complex medical history including cirrhosis. Cirrhosis of liver: - The patient has a history of cirrhosis and is under the care of a refinery pipeline operator who is reportedly happy with her current status. - visit 05/23 reviewed. Edema: - The patient has been taking spironolac tone for leg swelling, which she feels is helpful. - The swelling in her legs seems to have improved. - She takes the spironolactone daily wit hout issues. - She reports that wearing taller socks worsens the edema, causing increased swelling above the sock line. Urinary Tract Infection: - The patient was recently prescribed ce furoxime for a urinary tract infection, which resolved her symptoms. Sinusitis: - The patient reports a recurrence of he r sinus infection, with symptoms of postnasal drainage that empties into her throat, causing her to cough up material. - She has a history of sinus surgeries, and states that since the surgeries, drainage never comes forward through her nose. Skin Lesion L knee, left bahai and R forearm: - The patient recently saw a dermatologi st who diagnosed a skin lesion as a wart and performed cryotherapy. - She is scheduled for a follow-up appoi ntment in six weeks to ensure the lesion has resolved. - The academic support center director also noted that her white skin patches are benign. Allergies: - The patient has a known allergy to van comycin, latex, and adhesives. - She previously had an allergy to amoxi cillin, but an continuous process rotary drum tanner in [place] performed testing and told her she is no longer allergic; however, she has not taken it since. Other: - The patient is scheduled for an echoca rdiogram on the of the month. - A referral to cardiology is pending th e results of her echocardiogram. - A referral for a sleep study was sent in April, but she has not been co ntacted for scheduling, possibly due to an outdated home phone number. Past Medical History - Cirrhosis of the liver - History of sinus surgeries - Allergies: Latex, adhesives, vancomyci n. Review of Systems - General: Reports severe fatigue, feeli ng wiped out and exhausted after minimal activity. - Cardiovascular: Denies chest pain, wea kness, or feeling faint. - HEENT: Reports recurrent sinus infecti on symptoms, including post-nasal drip and coughing up phlegm. - Genitourinary: Denies current symptoms of urinary tract infection. - Extremities: Reports leg swelling, whi ch is improved. Physical Exam Awake alert NAD Scleras nonicteric bilat TM intact and clear bilat Nares purulent dc right, sinus TTP maxillary bilat Pharynx clear 2/6 murmur, irregular LS CTAB Abd soft, nontender Edema BLE 1+ bilat, worse on the L, + PP Verrucous growth L knee Mood and affect appropriate Medical Decision Making The patient is a 65-year-old female with a complex medical history, including cirrhosis, seen for interim follow-up. Her leg edema has improved on spironolactone, and since her refinery pipeline operator is agreeable to its continuation, a 90-day supply will be prescribed. Her recent UTI has resolved with Cefuroxime. She reports symptoms of a recurrent sinus infection, and given a remote history of an amoxicillin allergy that has since been disproven by an continuous process rotary drum tanner, I will prescribe amoxicillin 1 tablet twice a day for 7 days with caution. As this is the preferred medication for sinusitis, it is a reasonable first-line choice. Her profound fatigue warrants further investigation, and the outstanding home sleep study is a priority to rule out sleep apnea. The upcoming echocardiogram is necessary for cardiac evaluation, and the cardiology consultation will be deferred until those results are available, which is an appropriate sequence of events. She will follow up in two months, with labs to be drawn one week prior to the visit, allowing for review of the echocardiogram and assessment of her response to treatment for sinusitis. Plan 1. Edema - The patient's leg swelling has improve d with spironolactone. - Her refinery pipeline operator is aware and onofre s not directed her to stop the medication. - A 90-day prescription for spironolacto ne will be provided. - Advised to wear compression socks, put ting them on first thing in the morning before swelling begins. 2. Sinusitis - The patient presents with symptoms of a recurrent sinus infection. - Prescribed amoxicillin, one tablet twi ce daily for seven days, as it is the preferred medication for sinusitis. - The patient was cautioned to be aware of any signs of an allergic reaction, such as hives, due to a remote history of amoxicillin allergy, although an continuous process rotary drum tanner has since cleared her. - Instructed to take the medication with food to avoid an upset stomach and to report if symptoms do not improve. 3. Fatigue - The patient reports significant fatigu e. - A sleep study is pending to investigat e for underlying causes like sleep apnea. - The patient was advised to contact the hotel front desk agent for a direct number to the sleep lab to facilitate scheduling, as the referral was sent in April and she has not received a call. 4. Cardiac Evaluation - An echocardiogram is scheduled for the of the month. - A referral to cardiology is in place, but they will wait to schedule an appointment until after reviewing the echocardiogram results. - The results of the echocardiogram will be communicated to the patient once available. 5. Follow-Up - The patient is to return for a follow- up appointment in approximately two months. - Lab work will be ordered to be complet ed one week before the next visit. Patient Instructions - Continue taking spironolactone every d ay for leg swelling. A 90-day supply has been sent to your pharmacy. - Let us know right away if symptoms of a urinary tract infection return. - A prescription for amoxicillin for you r sinus infection has been sent to [facility]. Take one tablet twice a day for seven days. Take it with food to avoid an upset stomach. - Although you were cleared by an allerg ist, be watchful for any signs of an allergic reaction to amoxicillin, like hives. If your sinuses do not get better after the antibiotic, please let us know. - To help with leg swelling, try wearing taller compression socks. It is important to put them on first thing in the morning, before you get out of bed and start walking around. - Ask the staff at the hotel front desk agent for th e phone number for the sleep lab to schedule your home sleep study, as we have not heard back from them. - Follow up with your academic support center director in s ix weeks to check on the wart that was treated. - We will let you know the results of yo ur echocardiogram once we receive them. - Schedule a follow-up appointment in ab out two months. Please complete lab work one week before that visit. Consent Patient was informed and verbally consented to the use of an ambient scribe for clinic note documentation during this visit. Total time spent caring for the patient today was 30 minutes. This includes time spent before the visit reviewing the chart, time spent during the visit, and time spent after the visit on documentation, reviewing laboratory results, diagnostic imaging, medications, performing a medically necessary evaluation, counseling on diagnoses, care coordination, ordering appropriate tests, ordering appropriate medications, review of tests performed by other providers, reporting test results with the patient, communication with other healthcare providers. PFSH Medical History (Updated 06/11/25 @ 12:17 by BRADY Pfeiffer) Cirrhosis Diabetes Hx of migraine headaches Hypertension Kidney stones Osteoporosis Surgical History (Updated 05/04/25 @ 08:19 by BRADY Pfeiffer) H/O: hysterectomy History of carpal tunnel surgery of left wrist History of carpal tunnel surgery of right wrist Hx of cholecystectomy Family History (Updated 04/26/25 @ 08:11 by SUDHIR Sherman) Mother Breast cancer Sister Breast cancer Social History (Updated 04/26/25 @ 08:03 by SUDHIR Sherman) Housing: Apartment Alcohol intake: never Patient Tobacco Use Status: Never used Tobacco e-Cigarette/Vaping Use: Never Used Second Hand Smoke Exposure: No service: No Current occupational status: retired Current occupational exposures/hazards: No Cognitive needs: No Hearing needs: No Vision needs: Yes Questionnaire Thrive Questionnaire Date Thrive assessed: 04/24/25 I am a: Patient What is your living situation today?: I have a steady place to live Within the past 12 months, did the food you bought not last and you didn't have the money to get more?: Never true Within the past 12 months, did you worry whether your food would run out before you got money to buy more?: Never true Do you have trouble paying for medicines?: No Do you have trouble getting transportation to medical appointments?: No Do you have trouble paying your heating and electricity bill?: No Do you have trouble taking care of your child, family member or friend?: No Do you have trouble with day-to-day activities such as bathing, preparing meals, shopping, managing finances, etc.?: No Are you currently unemployed and looking for a job?: No Are you interested in more education?: No Please select the resources that you would like help with: None Currently or been in a relationship where the following occur: No concerns reported THRIVE Score: 0 SELAM-7 AMB Questionnaire SELAM-7 Date SELAM - 7 assessed: 05/11/25 Source: Developed by Drs. Jose Daniel Castorena, Natalya Wall, Joshua Enriquez and colleagues, with an educational soham from [employer]. Physical exam (Primary Care) Vital Signs: Last Vital Signs Temp 97.4 F 06/11/25 11:31 Pulse 68 06/11/25 11:31 Resp 12 06/11/25 11:31 BP 128/70 06/11/25 11:31 Pulse Ox 98 06/11/25 11:31 Oxygen Delivery Method Room Air 06/11/25 11:31 BMI result Body Mass Index 26.6 Tobacco/Smoking Status: Tobacco use Status Tobacco use date assessed 06/11/25 06/11/25 11:30 Patient Tobacco Use Status Never used Tobacco 06/11/25 11:30 e-Cigarette/Vaping Use Never Used 06/11/25 11:30 Thrive Assessment: Date of Thrive Assessment Date Thrive assessed 04/24/25 06/11/25 11:30 Currently or been in a relationship where the following occur: No concerns reported Coding Level of Care Code Est Pt Level 4 (08914) Complex visit Add On G2211 Diagnoses Cirrhosis of liver without ascites, unspecified hepatic cirrhosis type K74.60 Hepatic cirrhosis type: unspecified hepatic cirrhosis Ascites presence: without ascites Swelling of both lower extremities M79.89 Fatigue R53.83 Dysuria R30.0 Sinusitis J32.9 Assessment & Plan Assessment & Plan (1) Cirrhosis: Comment: RUSH Code(s): K74.60 - Unspecified cirrhosis of liver Category: Medical Qualifiers: Hepatic cirrhosis type: unspecified hepatic cirrhosis Ascites presence: without ascites Qualified Code(s): K74.60 - Unspecified cirrhosis of liver (2) Swelling of both lower extremities: Code(s): M79.89 - Other specified soft tissue disorders Category: Medical (3) Fatigue: Code(s): R53.83 - Other fatigue Category: Medical (4) Dysuria: Comment: RESOLVED S/P ABT Code(s): R30.0 - Dysuria Category: Medical (5) Sinusitis: Code(s): J32.9 - Chronic sinusitis, unspecified Category: Medical Plan . Orders: Orders Hemoglobin A1c 2 Months E11.9 - Type 2 diabetes mellitus without complications, K74.60 - Unspecified cirrhosis of liver Comprehensive Met. Panel 2 Months E11.9 - Type 2 diabetes mellitus without complications, K74.60 - Unspecified cirrhosis of liver Medications: New amoxicillin-pot clavulanate 500-125 mg 1 tab PO BID 14 tabs 0RF 7 days Refilled spironolactone 25 mg PO DAILY 90 tabs 1RF Discontinued cefuroxime axetil Discontinued Reason: Patient Completed Course 500 mg PO BID 10 tabs 0RF
[2025-06-11 11:31] VITALS: BP 128/70; PULSE 68; RESP 12; TEMP 36.3; O2SAT 98; BMI 26.6
== END 2025-06-11 12:07 | disposition home or self-care (01) ==
LOC: HO.HMCFM 11:25
PROVIDERS: PCP Nurse Practitioner Family; Visit Provider Nurse Practitioner Family
DX: K74.60 Unspecified cirrhosis of liver (principal); M79.89 Other specified soft tissue disorders; R53.83 Other fatigue; R30.0 Dysuria; J32.9 Chronic sinusitis, unspecified

== ENCOUNTER → 2025-06-11 11:24 | Outpatient (BNVA) | payer MEDICARE, SELFPAY | PROVIDERS: PCP Nurse Practitioner Family; Visit Provider Nurse Practitioner Family | DX: E11.9 Type 2 diabetes mellitus without complications (principal); I10 Essential (primary) hypertension; K74.60 Unspecified cirrhosis of liver; B07.9 Viral wart, unspecified; L30.9 Dermatitis, unspecified; J32.9 Chronic sinusitis, unspecified; R53.83 Other fatigue; M79.89 Other specified soft tissue disorders; Z87.440 Personal history of urinary (tract) infections | CPT/HCPCS: 99212 ==

== ENCOUNTER → 2025-06-19 13:03 | Outpatient (REF) | payer MEDICARE, SELFPAY ==
--- OUTSIDE RECORDS SUMMARY | 2022-03-24 10:03 | XMS_ITS | Encounter Summary ---
Author Organization [facility] Address [address] [place] [address] [place] [address] Phone Care Team Providers Care Car Wash Supervisor Name Role Phone Chaparro Alvarez MD Primary Care Provider [phone] Adam Sánchez MD Unavailable [phone] Jose Daniel Castellanos MD Unavailable [phone] Encounter Details Date Type Department Care Team (Late st Contact Info) Description 03/24/2022 11:03 AM EDT Hospital Encounter [facility] [address] [place] [id number] Cristiana Mcdonald FNP [address] [place] [address] [email or web address] Social History Tobacco Use Types Packs/Day Years Used Date Smoking Tobacco: Never Smokeless Tobacco: Never Alcohol Use Standard Drinks/Week Comments Never 0 (1 standard drink = 0.6 oz pur e alcohol) Child or Family Care Answer Date Record ed Do you have problems with on e of the following making it difficult for you to work, study, or receive health care? No 04/14/2024 Education Answer Date Recorded Are you interested in help w ith more adult education (for example, completing high school, GED, job training, learning the Indonesian language, technical skills, or developing parenting skills)? No 04/14/2024 Are you concerned about learning? Not on file 04/14/2024 No 04/14/2024 Yes 04/14/2024 Food Answer Date Recorded Within the past 6 months we worried whether our food would run out before we got money to buy more. Never True 04/14/2024 Within the past 6 months the food we bought just didn't last and we didn't have enough money to get more. Never True Residential Stability Answer Date Recor ded What is your housing situation today? I have edwin casey 04/14/2024 How many times have you move d in the past 12 months? Zero (I did not move) 04/14/2024 Paying for Meds Answer Date Recorded Do you have trouble paying for medicines? No 04/14/2024 Paying Utility Bills Answer Date Record ed Do you have trouble paying your heating or elect ricity bill? No 04/14/2024 Transportation Answer Date Recorded Has the lack of transportati on kept you from medical appointments or from getting medications? No 04/14/2024 Unemployment Answer Date Recorded Are you currently unemployed or working on a part-time or temporary basis, and looking for work? No 12/16/2020 Digital Access Answer Date Recorded No 04/14/2024 Yes 04/14/2024 Do you have reliable internet access at home? Ye s 04/14/2024 Do you have a device (e.g., phone, tablet, computer) with a working camera? Yes 04/14/2024 SNAP & WIC Answer Date Recorded Do you receive benefits from SNAP (the Supplemental Nutrition Assistance Program) or the Food Stamp Program? No 04/14/2024 SNAP is a free program that can help you and your family get access to healthy foods, nutrition classes, utility discounts, and more. Would you be interested in learning more? No 04/14/2024 Can we help you enroll in SNAP? Not on file 04/14/2024 Benefits received from WIC? Not on file 04/04 WIC is a free program, interested in learning mo re? Not on file 04/14/2024 Can we help you enroll in WIC? Not on file 1 Intimate Partner Violence Answer Date R ecorded Denied Basic Needs Not on file 04/14/2024 In the past 12 months have y ou been in a relationship with a person who hurts, threatens, or tries to control you? No 04/14/2024 Worried food would run out Not on file 04/14 In the past 12 months have y ou been in a relationship with a person who hurts, threatens, or tries to control you? No 04/14/2024 Comments No Sex and Gender Information Value Date Recorded Sex Assigned at Female 10/10/2019 1:24 PM EDT Legal Sex Female 9:48 PM EDT Gender Identity Female 10/10/2019 1:24 PM EDT Sexual Orientation Straight 04/15/2020 10 :08 AM EDT documented as of this encounter Plan of Treatment Not on file documented as of this encounter Procedures Procedure Name Priority Date/Time Associated Diagnosis Comments XR RIBS 3 OR MORE VIEWS WITH PA CHEST (RIGHT) Urgent/patient waiting 03/24/2022 11:10 AM EDT Rib contusion, right, initial encounter documented in this encounter Results * XR RIBS 3 OR MORE VIEWS WITH PA CHEST (RIGHT) (03/24/2022 11:10 AM EDT) Anatomical Region Laterality Modality Chest Computed Radiogr aphy 03/24/2022 12:0 0 PM EDT Impressions 03/24/2022 12:09 PM EDT No displaced rib fracture. Narrative 03/24/2022 12:09 PM EDT XR RIBS 3 OR MORE VIEWS WITH PA CHEST (RIGHT) COMPARISON: None FINDINGS: No displaced rib fracture. PA evaluation of the chest demonstrates no focal consolidation, pleural effusion, pulmonary edema, or pneumothorax. Cardiomediastinal silhouette is normal. Procedure Note Nancy He MD - 03/24/2022 XR RIBS 3 OR MORE VIEWS WITH PA CHEST (RIGHT) COMPARISON: None FINDINGS: No displaced rib fracture. PA evaluation of the chest demonstrates no focal consolidation, pleuraleffusion, pulmonary edema, or pneumothorax. Cardiomediastinal silhouetteis normal. IMPRESSION: No displaced rib fracture. Cristiana Mcdonald ANTHROPOMETRIST IMG XR CHEST Final Resul t documented in this encounter Visit Diagnoses Not on filedocumented in this encounter Additional Health Concerns Infection Onset Date Last Indicated Resolved Time MRSA 03/21/2020 12/25/2020 12/25/2022 1:22 AM EDT Assessment Noted Time PHQ-2 Depression Total Score: 0 08/22/19 10:10 AM EST documented as of this encounter Care Teams Car Wash Supervisor Relationship Specialty Start Date End Date Chaparro Alvarez MD [address] [place] [address] [email or web address] PCP - General Internal Medicine 10/06/19 03/29/25 Adam Sánchez MD [address] [place] [id number] Internal Medicine 04/18/20 08/30/22 Jose Daniel Castellanos MD [address] [place] [id number] [email or web address] Otolaryngology 04/18/20 documented as of this encounter Additional Source Comments The information contained in this document represents components of the legal health record. It is not the complete legal health record.[facility]
--- NOTE | 2025-06-19 13:06 | CA_ITS ---
Transthoracic Echocardiogram Patient (Last, First, Middle): Liz Quick R Gender: F Date of : 1960 Age: 65 Procedure Date: 06/19/2025 Procedure Type: Transthoracic Echocardiogram Location: OP Height: 170. cm Weight: 75.3 kg BSA: 1.87 m2 Heart Rate: 65 bpm BP: 110 / 60 mmHg Material Control Associate: JORDY Referring MD: Pamela Casper [facility]- Laborer Tree Tapping: Andry Singh MD Symptoms: M79.89 - Other specified soft tissue disorders Study Quality: Adequate ECG Rhythm: Sinus Conclusions: - 1. Hyperdynamic LV EF of greater than 70% 2. Normal cardiac valvular Dopplers 3. Normal RV systolic pressure 4. No gross pericardial effusion Findings Left Ventricle Normal left ventricular cavity size. There is normal left ventricular wall thickness. The left ventricular systolic function is hyperdynamic. The visually estimated ejection fraction is >70%. Spectral Doppler is indicative of a normal filling pattern. Right Ventricle Normal right ventricular cavity size and systolic function. Atria Both atria are normal in size. There is lipomatous hypertrophy of the interatrial septum. There is no evidence of interatrial shunt. Aortic Valve There is a doming trileaflet aortic valve. There is mild calcification of the aortic valve. There is no aortic valve stenosis. There is no aortic valve regurgitation. Mitral Valve Normal mitral valve structure and function. There is trace mitral valve regurgitation. There is no mitral valve stenosis. Pulmonic Valve The pulmonic valve is likely normal. Tricuspid Valve Normal tricuspid valve structure. There is mild tricuspid valve regurgitation. The right ventricular systolic pressure is normal. The right ventricular systolic pressure is 24 mmHg. Normal right atrial pressure. There is no evidence of pulmonary hypertension. Great Vessels All visible segments of the aorta are normal in size. The pulmonary artery was not well visualized. Venous The inferior vena cava is normal in size and collapses greater than 50% with inspiration. Pericardium/Pleural There is no evidence of pericardial effusion. Measurements 2D Linear Measurements IVSd: 1.15 0.6-0.9/0.6-1.0 cm LVIDd: 4.72 3.9-5.3/4.2-5.9 cm LVIDd Index: 2.52 2.4-3.2/2.2-3.1 cm/m2 LVIDs: 2.34 2.0-3.6 cm LVPWd: 1.02 0.7-1.1 cm LA Diam: 3.80 2.7-3.8/3.0-4.0 cm LAIDs Index: 2.03 1.5-2.3 cm/m2 LV Mass: 230.81 67-162/88-224 g LV Mass Index: 123.43 43-95/49-115 g/m2 LVOT Diam: 2.00 3.0+(-)1.3 cm 2D Systolic Function EF 4C: 77.30 >55% EF 2C: 69.40 >55% EF BiP: 74.50 >55% Mitral Valve MV Pk E: 0.86 MV PK A: 0.66 MV Decel Time: 296.00 E/A: 1.30 E'Lateral: 9.03 E'Medial: 5.66 E/E' Med: 15.20 E/E' Lat: 9.50 PHT: 87.00 MVA PHT: 2.53 Decel [place]: 2.91 Aortic Valve AoV Pk Asim: 1.73 AoV Mn Asim: 1.21 AoV VTI: 0.40 AoV Pk Grad: 12.00 Aov Mn Grad: 7.00 YELENA Cont.VTI: 2.36 LVOT LVOT Pk Asmi: 1.36 LVOT Mn Asim: 0.88 LVOT VTI: 0.30 LVOT Pk Grad: 7.00 LVOT Mn Grad: 4.00 LVOT Diam: 2.00 LVOT Area: 3.14 Diastolic Function MV Pk E: 0.86 MV Pk A: 0.66 E/A: 1.30 E'Medial: 5.66 E/E' Med: 15.20 E' Laterial: 9.03 E/E' Lat: 9.50 Right Ventricle TAPSE (mm): 27.70 TVS' Asim: 13.20 Tricuspid Valve TR Pk Asim: 2.28 TR Pk Grad: 21.00 RA Press: 3.00 RVSP: 24.00 Great Vessels Aorta Sinus of Valsalva: 3.30 2.0-3.5 cm Ao Asc: 3.30 2.1-3.4 cm Ao Arch: 3.00 Pulmonary Veins Pulm Vein S/D 1.20 Pulmonary Valve PV Pk Asim: 1.00 Peak PV Grad: 4.00 Updated in Other Vendor System with Status of Final Andry Singh MD electronically signed on 06/19/2025 4:16:18 PM with status of Final
--- OUTSIDE RECORDS SUMMARY | 2025-06-19 16:59 | XMS_ITS | Patient Health Record ---
[facility] Address [address] [place] [address] Care Team Providers Care Laundry Machine Operator Name Role Phone Ajay Glez MD Primary Care Provider Unavailnegro e Black, Perla Unavailable [phone] Allergies Allergen (clinical drug ingredient) Drug/Non Drug [...] 1 tablet Orally Once a day Active Ipckyqrbso-YOO-Jjpzoqpu 50-325-40 MG 1 capsule as needed Orally every 4 hrs Active Gabapentin 300 MG 1 capsule Orally Thr ee times a day Active Parking . . . .; Duration: . 12/17/2014 Active Naproxen 375 375 MG 1 tablet Orally Thre e times daily with food; Duration: 30 day(s) 12/17/2014 Active Problems No Known Problems Plan Of Treatment Pending Test Test Name Order Date ,[id number] TENDON SHEATH/LIGAMENT 1 Insurance Providers Payer Name Payer Address Payer Phone Subscriber Number Group Number Insured Name Patient Relationship to Insured Coverage Start Date Coverage End Date [employer] [address] [place] [address] [id number] Liz Quick Self - patient is the insured Medical (General) History Medical History History ICD Code Headaches High blood pressure Chicken pox Surgical History Surgery Date(Month/Year) carpal tunnel surgery both hands 2004 hysterectomy 11/23/2011 eye surgery 06/18/2012 eye surgery 06/01/2012
--- OUTSIDE RECORDS SUMMARY | 2025-06-19 16:59 | XMS_ITS | Encounter Summary ---
Author Organization [facility] Address [address] [place] [id number] Phone Care Team Providers Care Stores Assistant Name Role Phone Chaparro Alvarez MD Primary Care Provider [phone] Adam Sánchez MD Unavailable [phone] Jose Daniel Castellanos MD Unavailable [phone] Adam Sánchez MD Unavailable [phone] Chaparro Alvarez MD Primary Care Provider [phone] Encounter Details Date Type Department Care Team (Late st Contact Info) Description 10/08/2020 Procedure Pass [facility] Imaging - [facility] Main [address] [address] Social History Tobacco Use Types Packs/Day Years [...] on file documented as of this encounter Visit Diagnoses Not on filedocumented in this encounter Additional Health Concerns Infection Onset Date Last Indicated Resolved Time MRSA 03/21/2020 12/25/2020 12/25/2022 1:22 AM EDT Assessment Noted Time PHQ-2 Depression Total Score: 0 08/16/19 21 8:10 AM EST documented as of this encounter Care Teams Stores Assistant Relationship Specialty Start Date End Date Chaparro Alvarez MD [address] [place] [address] [email or web address] PCP - General Internal Medicine 10/06/19 03/29/25 Chaparro Alvarez MD [address] [place] [address] [email or web address] PCP - General Internal Medicine 05/02/25 Adam Sánchez MD [address] [place] [id number] Internal Medicine 04/18/20 08/30/22 Jose Daniel Castellanos MD [address] [place] [id number] [email or web address] Otol[facility]ology 04/18/20 Adam Sánchez MD [address] [place] [id number] Gastroenterology 08/31/22 documented as of this encounter Additional Source Comments The information contained in this document represents components of the legal health record. It is not the complete legal health record.[facility]
--- OUTSIDE RECORDS SUMMARY | 2025-06-19 16:59 | XMS_ITS | Clinical Summary ---
Author Organization [facility] Address [address] [place] [address] Phone Care Team Providers Care Crew Chief Name Role Phone Jose Daniel Castellanos MD Unavailable [phone] Adam Sánchez MD Unavailable [phone] Chaparro Alvarez MD Primary Care Provider [phone] Allergies Active Allergy Reactions Criticality Noted Date [...] Type Department Care Team Description 03/27/2025 Telephone [facility] [address] [place] [address] Chaparro Alvarez MD Appointment 03/26/2025 Telephone [facility] [address] [place] [address] Chaparro Alvarez MD Joint Swelling from Last 3 Months Immunizations Immunization Administration [...] high school, GED, job training, learning the [place] language, technical skills, or developing parenting skills)? [...] 11/21/2024 3:56 PM EDT Plan of Treatment Health Maintenance Due Date Last Done Comments [...] 07/08/2023, Additional history exists MAMMOGRAM 03/12/2027 03/12/2025, 11/2023, 03/09/2024, Additional history exists COLONOSCOPY 11/10/2027 [...] this topic Medical Devices Implanted Type Area Service Aide Device Identifier Shelf Expiration Date Model / Serial / Lot Lens Bilateral: Eye Stent System 16mm 370 Micrograms Delivery Drug Sinus Propel Mometasone Furoate Bioabsorbable Mini - [id number] Implanted:Qty: 1 on 05/25/2019 by Jose Daniel Castellanos MD at [facility] Left: Sinus INTERSECT ENT 12/07/2019 [id number] / / [id number] Procedures Procedure Name Priority Date/Time Associated Diagnosis Comments HM MAMMOGRAPHY Routine 03/12/2025 11:46 AM EDT HEMOGLOBIN [...] RESULT ENTRY ONLY (03/12/2025 11:46 AM EDT) us Historical Provider HEALTH MAINTENANCE Final Result * (ABNORMAL) Comprehensive metabolic panel (10/19/2024 9:24 AM EDT) SODIUM 141 133 - 146 mmol/L [facility] POTASSIUM 4.2 3.3 - 5.1 mmol/L [facility] CHLORIDE 107 96 - 108 mmol/L [facility] CO2 26 21 - 35 mmol/L [facility] BUN 10 6 - 19 mg/dL [facility] CREATININE 0.40(L) 0.5 - 1.5 mg/dL [facility] GLUCOSE 113(H) 70 - 99 mg/dL [facility] ALBUMIN 3.5(L) 3.9 - 4.8 g/dL [facility] TOTAL PROTEIN 6.6 6.5 - 8.0 g/dL [facility] CALCIUM 8.9 8.4 - 10.3 mg/dL [facility] ALKALINE PHOSPHATASE 101 39 - 117 U/L [facility] TOTAL BILIRUBIN 2.1(H) 0.0 - 1.2 mg/dL [facility] AST 26 0 - 37 U/L [facility] ALT 13 0 - 40 U/L [facility] GLOBULIN 3.1 1 - 4.8 g/dL [facility] EGFR 110 >59 mL/min/1.7 3m2 [facility] Comment:Estimated glomerular filtration rate calculated using the CKD-EPI refit equation. ANION GAP 12 10 - 20 mmol/L [facility] Blood 10/19/2024 9:24 AM EDT 10/19/2024 9:26 AM EDT Chaparro Alvarez MD LAB BLOOD BKR ORDERABLES Christina l Result Performing Organization Address City/[facility]/ZIP Co de Phone Number [address] [address] * Hemoglobin A1c (10/19/2024 9:24 AM EDT) HEMOGLOBIN A1C 5.1 4.3 - 5.8 % [facility] Blood 10/19/2024 9:24 AM EDT 10/19/2024 9:26 AM EDT Chaparro Alvarez MD LAB BLOOD BKR ORDERABLES Christina l Result Performing Organization Address City/[facility]/ZIP Co de Phone Number [address] [address] * (ABNORMAL) Lipid panel (10/11/2024 8:05 AM EDT) HDL 62 mg/dL [facility] Comment: Interpretation <40 mg/dL: Low HDL cholesterol (major risk factor for CHD) Greater than or equal to 60 mg/dL: High HDL cholesterol ( negative risk factor for CHD) HDL - cholesterol is affected by a number of factors, e.g. smoking, excerise, hormones, sex and age. CHOLESTEROL 153 0 - 240 mg/dL [facility] TRIGLYCERIDES 66 30 - 160 mg/dL [facility] LDL 78 50 - 129 mg/dL [facility] Comment: LDL levels in terms of risk for coronary heart disease: <100 mg/dL: Optimal 100-129 mg/dL: Near or above optimal 130-159 mg/dL: Borderline high 160-189 mg/dL: High >190 mg/dL: Very High CARDIAC RISK RATIO 2.5(L) 3.3 - 4.4 [facility] Blood 10/11/2024 8:05 AM EDT 10/11/2024 8:08 AM EDT Chaparro Alvarez MD LAB BLOOD BKR ORDERABLES Christina l Result [facility] [address] [place], [place] [id number] * DIABETES EYE EXAM FOR RESULT ENTRY ONLY (09/26/2024) EYE EXAM no diabetic retinopathy Historical Provider HEALTH MAINTENANCE Final Result * [...] a total bone mineral density of 0.616 g/wc7rsyn a T- score of -2.7. Z score [...] * COLONOSCOPY FOR RESULT ENTRY ONLY (11/09/2017) [facility] Colonoscopy 10 year repeat Historical Provider HEALTH MAINTENANCE Final Result * Outside Hepatitis C Virus Screening (10/22/2017) [facility] Hepatitis C Screening - External Neg Historical Provider LAB BLOOD ORDERABLES Christina l Result from Last 3 Months or Most Recently Relevant to Health Maintenance Insurance [address] MEDICARE PPO BLUE REPLACEMENT . [address] MED[address]ARE PPO BLUE REPLACEMENT . [address] MED[address]ARE PPO BLUE REPLACEMENT . [address] MED[address]ARE PPO BLUE REPLACEMENT [address] MEDICARE PPO BLUE REPLACEMENT [address] MEDICARE PPO BLUE REPLACEMENT , [address] [id number] , [address] [id number] , [address] [address] Advance Directives For more information, please contact: [phone] (9AM - 5PM [facility], Wednesday-Wednesday) Documents on File Type Date Recorded Patient Director Global Strategic Publisher Sales Expl anation Healthcare Proxy 10/22/2020 2:06 PM Care Teams Crew Chief Relationship Specialty Start Date End Date Chaparro Alvarez MD [address] [place] [address] PCP - General Internal Medicine 05/02/25 Jose Daniel Castellanos MD Otolaryngology 04/18/20 Adam Sánchez MD [address] [place] [address] Gastroenterology 08/31/22 Additional Source Comments The information contained in this document represents components of the legal health record. It is not the complete legal health record.[facility]
--- OUTSIDE RECORDS SUMMARY | 2025-06-19 16:59 | XMS_ITS | Data Portability ---
Author Organization [facility], [address] Address [address] [place] [address] Care Team Providers Care Felt Hat Inspector And Packer Name Role Phone JEAN JOSEPH Primary Care Provider [phone] Assessment No assessment recorded. Plan of Treatment Reminders Order Date Submit Date Provider Last Modified By Organization Details Last Modified Time Details Appointments None recorded. Lab rapid SARS CoV 2 Ag, QL IA, respiratory specimen 2022 023 20995[facility], [address] [place] [address], [id number], 3 12:11:49 Referral None recorded. Procedures None recorded. Surgeries None recorded. Imaging None recorded. Medication Orders benzonatate 200 mg capsule 2022 023 [place] [id number], [address], [place], [id number], 3 12:11:58 prednisone 20 mg tablet 2022 023 [place] [facility]32409, [address], [place], [id number], 3 12:11:57 albuterol sulfate HFA 90 mcg/actuati on aerosol inhaler 2022 023 [place] [facility]90875, [address], [place], [id number], 3 12:11:56 Allergy Relief (fluticason e) 50 mcg/actuati on nasal spray,suspe nsion 2022 023 [id number], [address], [place], [phone], 12:11:57 Patient TargetsNo targets recorded. Patient Instructions Encounter Date Encounter Id Patient Instructions Last Modified By Organization Details Last Modified Time 08/17/2022 [id number] cough: care instructions [email or web address] Not available 08/17/2022 [...] care for yourself at home? Take an yezl-oed-tfkjsjb pain medicine. Avoid Ibuprofen, Aleve and Aspirin if . If the doctor prescribed antibiotics, take them as directed. Do not stop taking them just because you feel better. You need to take the full course of antibiotics. Be careful when taking tdzx-ybl-cdtgxoz cold or influenza (flu) medicines and Tylenol [...] wear a mask. For travel guidance, see [facility] s Travel webpage. Do not travel. Stay [...] masking (see below). For travel guidance, see [facility] s Travel webpage. Not available 08/17/2022 12:10:54 Reason for Referral None Reported. Results Created Date Observation Date Name Description Value Unit Range Abnormal Flag Note LastModifiedBy Organization Detail LastModifiedTime 08/17/19 23 08/17/2022 rapid SARS CoV 2 Ag, QL IA, respi rator y speci men Unknown Analyte Normal =Negat parul Not Available [facility] [place], [address], 08/17/2022 11:42:53 08/17/1908/17/2022 rapid SARS CoV 2 Ag, QL IA, respi rator y speci men Unknown Analyte negati ve Not Available [address] [address] [place], [address], 08/17/2022 11:42:53 Result Notes None recorded. Problems Name Problem SNOMED Code Status Onset Date Resolution Date Notes Provider Name and Address Organization Details Recorded Time Hypertensive disorder 63145033 Active 2022 ROGELIO Moctezuma - [facility] 3 11:38:17 Cirrhosis of liver 83199727 Active 2022 Sylvia chong [place] - [facility] 3 11:38:47 Problem Notes None recorded. Procedures Surgical History Date Name Laterality Status Provider Name and Address Organization Details Recorded Time hysterectomy completed Sylvia Lima PA - [facility] 08/17/2022 11:39:54 cholecystectomy completed Slyvia Lima PA - [facility] 08/17/2022 11:40:01 Imaging Results None recorded. Procedure Notes None recorded. Medical Equipment None Reported. Allergies Allergen ID Allergen Name Allergen Category Reaction Reaction Severity Criticality Documentation Date Start Date Code Code System Note Provider Name and Address Organization Details Recorded Time 346549 vancomyci n medicatio n anaphylax is Not available Not available 08/17/2022 27999 RxNorm Sylvia chong [facility] 3 11:34:58 Medications Name Sig [...] e) 50 mcg/actuati on nasal spray,suspe nsion [place] 1 spray twice a day by intranasa [...] numeric rating [Score] - Reported Oxygen saturation Heart rate Respiratory rate Body temperature Systolic And Diastolic Provider Name and Address Organization Details Last Updated DateTime 3 170.18 cm 29.3 kg/m2 07710.7 7 g 0 98 % 72 /min 18 /min 97.6 [degF] 117/80 mm[Hg] Sylvia Manzano [employer] [facility] 3 11:42:03 Social History Question Answer Notes LastModified by [employer] Details LastModified Time Tobacco Smoking Status Never Smoker [facility]OGELIO [facility] 08/17/2022 11:39:32 Have You Recently Traveled Abroad? No Information not available 08/17/2022 Sex: Unknown Functional Status Question Answer Note LastModified by [employer] ion Details LastModified Time Do you use [...] [facility] 08/17/2022 11:34:42 Pneumococcal conjugate PCV20, polysaccharide AHH540 conjugate, adjuvant, PF 2 completed Sylvia Monfette [...] split virus, quadrivalent, PF 1 completed Sylvia Oatesfette null, PA - [facility] 08/17/2022 11:34:42 Influenza, split virus, quadrivalent, PF 5 completed Sylvia Oatesfette null, [place] - [facility] 08/17/2022 11:34:42 Past Encounters Encounter ID Performer Location Encounter Start Date Encounter Closed Date Diagnosis/Indication Diagnosis SNOMED-CT Code Diagnosis ICD10 Code Diagnosis IMO Codes Diagnosis Note [id number] [address] [address] [place] [address] 07/26/2021 09:27:31 07/26/2021 10:26:49 [id number] 20[address] [facility] [address] [place] [address] 03/12/2018 09:59:03 03/12/2018 11:14:21 [id number] [address] [place] [address] 11/26/2016 18:44:26 11/26/2016 19:14:47 [id number] [address] [address] [place] [address] 02/02/2018 16:56:21 02/02/2018 17:20:23 [id number] [address] [address] [place] [address] 07/23/2018 10:12:25 07/23/2018 12:12:54 [id number] [address] [address] [place] [address] 12/17/2018 10:55:50 12/17/2018 12:06:40 [id number] [address] [place] [address] 01/20/2015 09:55:44 01/20/2015 10:58:31 [id number] Ted Early NP [address] [place] [address] 08/17/2022 09:10:01 08/17/2022 12:14:16 Exposure to SARS-CoV-2 365385776 Z20.822 Acute sinusitis 32939618 J01.90 Acute bronchitis 1225237 2 J20.9 Health Concerns Section Related Observation LastModified by Organization Detai ls LastModified Time None Recorded Concern Status LastModified by Organization Details LastModified Time None Recorded Advance Directives Directive None Recorded Payers Insurance Date Sequence Insurance Name Policy Number Policy Reyes Covered Member ID Reyes Member ID Guarantor Name 08/17/[address] [facility] [id number] Liz R Abdelrahman [id number] Liz R Abdelrahman 08/17/2022 1 [facility] TYPE I (HMO) [id number] Liz R Abdelrahman [id number] Liz R Abdelrahman 08/17/2022 1 [facility] [id number] Liz R Abdelrahman [id number] Liz R Abdelrahman Notes Date Note Type Note Provider Name and Address Organization Details Recorded Time 08/17/2022 text/html CongestionReport ed by Patientnasal congestion with post nasal drip x 3 days. denies nay fever or fever with chills. no SOB or respiratory distress. CoughReported by Patient Ted Early NP [address] [place], [address], [place] - [facility] 08/17/2022 12:12:51 OBGyn Episode No OBEpisode recorded.
--- OUTSIDE RECORDS SUMMARY | 2025-06-19 16:59 | XMS_ITS | Encounter Summary ---
Author Organization [facility] Address [address] [place] [address] Phone Care Team Providers Care Cigar Tobacco Rehandler Name Role Phone Ajay Glez DO Primary Care Provider [phone] Chaparro Alvarez MD Primary Care Provider [phone] Adam Sánchez MD Unavailable [phone] Jose Daniel Castellanos MD Unavailable [phone] Adam Sánchez MD Unavailable [phone] Chaparro Alvarez MD Primary Care Provider [phone] Encounter Details Date Type Department Care Team (Late st Contact Info) Description 05/25/2019 Procedure Pass [place] Admitting Dept - [facility] Department [address] [place] [address] [phone] Social History Tobacco Use Types Packs/Day Years [...] documented as of this encounter Care Teams Cigar Tobacco Rehandler Relationship Specialty Start Date End Date Ajay Glez DO [address] [place] [address] PCP - General 07/08/17 10/05/19 Chaparro Alvarez MD [address] [place] [address] PCP - General Internal Medicine 10/06/19 03/29/25 Chaparro Alvarez MD [address] [place] [address] PCP - General Internal Medicine 05/02/25 Adam Sánchez MD [address] [place] [address] Internal Medicine 04/18/20 08/30/22 Jose Daniel Castellanos MD [address] [place] [address] Otolaryngology 04/18/20 Adam Sánchez MD [address] [place] [address] Gastroenterology 08/31/22 documented as of this encounter Additional Source Comments The information contained in this document represents components of the legal health record. It is not the complete legal health record.[facility]
--- OUTSIDE RECORDS SUMMARY | 2025-06-19 17:00 | XMS_ITS | Encounter Summary ---
Author Organization [facility] Address [address] [place] [address] [place] [address] Phone Care Team Providers Care Dental Laboratory Technician Apprentice Name Role Phone Chaparro Alvarez MD Primary Care Provider [phone] Adam Sánchez MD Unavailable [phone] Jose Daniel Castellanos MD Unavailable [phone] Adam Sánchez MD Unavailable [phone] Chaparro Alvarez MD Primary Care Provider [phone] Encounter Details Date Type Department Care Team (Late st Contact Info) Description 02/23/2022 Procedure Pass [facility] [address] [place], [place] [phone] Social History Tobacco Use Types Packs/Day Years [...] high school, GED, job training, learning the [place] language, technical skills, or developing parenting skills)? [...] documented as of this encounter Care Teams Dental Laboratory Technician Apprentice Relationship Specialty Start Date End Date Chaparro Alvarez MD [address] [place] [address] PCP - General Internal Medicine 10/06/19 03/29/25 Chaparro Alvarez MD [address] [place] [address] PCP - General Internal Medicine 05/02/25 Adam Sánchez MD [address] [place] [address] Internal Medicine 04/18/20 08/30/22 Jose Daniel Castellanos MD [facility] [place] [address] [email or web address] Otolaryngology 04/18/20 Adam Sácnhez MD [address] [place] [address] Gastroenterology 08/31/22 documented as of this encounter Additional Source Comments The information contained in this document represents components of the legal health record. It is not the complete legal health record.[facility]
--- OUTSIDE RECORDS SUMMARY | 2025-06-19 17:00 | XMS_ITS | Data Portability ---
Author Organization [place] - [facility], Allergy Address [address] [place] [address] Assessment Encounter Date Assessment Date Assessment LastModified [...] Organization Details Recorded Time General unsteadin ess 075945561 Active 2018 Unsteadin ess on feet; Note: Date Diagnosed : 02/21/2019 4:04 PM (R26.81) Not Available [facility] 4 02:46:44 Sensorine ural hearing loss of bilateral ears 359850007 Active 2018 Sensorine ural hearing loss, bilateral ; Note: Date Diagnosed : 02/21/2019 4:05 PM (H90.3) Not Available [facility] 4 02:46:40 Dizziness and giddiness 995380728 Active 2018 Dizziness and giddiness ; Note: Date Diagnosed : 02/21/2019 4:04 PM (R42) Light-h eadedness ; Note: Date Diagnosed : 02/21/2019 4:04 PM (R42) Not Available [facility] 4 02:46:39 Chronic sinusitis 14626193 Active 2018 Other chronic sinusitis ; Note: Date Diagnosed : 02/28/2019 12:20 PM (J32.8) Not Available [facility] 4 02:46:43 Headache 70690449 Active 2018 Headache; Note: Date Diagnosed : 03/29/2019 9:00 AM (R51) Facial pain NOS; Note: Date Diagnosed : 02/21/2019 4:04 PM (R51) ; Start Date : 9 Not Available [facility] 4 02:46:40 Recurrent aphthous stomatiti s 806967084 Active 2018 Aphthous stomatiti s (major) (minor); Note: Date Diagnosed : 9 2:15 PM (K12.0) Not Available [facility] 4 02:46:37 Recurrent acute sinusitis 874515407 Active 2019 Other acute recurrent sinusitis ; Note: Date Diagnosed : 09/12/2019 9:14 AM (J01.81) Not Available [facility] 4 02:46:43 Localized swelling of head 15006320928 373061 Active 2019 Localized swelling, mass and lump, head; Note: Date Diagnosed : 09/12/2019 9:09 AM (R22.0) Not Available [facility] 4 02:46:37 Chronic pansinusi tis 44598680 Active 2019 Chronic pansinusi tis; Note: Date Diagnosed : 12/08/2019 3:22 PM (J32.4) Not Available [facility] 4 02:46:43 Acute serous otitis media of left ear 13456915958 42110 Active 2019 Acute serous otitis media, left ear; Note: Date Diagnosed : 02/16/2020 1:44 PM (H65.02) Not Available [facility] 4 02:46:41 Follow-up visit Active 2019 Encounter for follow-up examinati on after completed treatment for condition s other than malignant neoplasm; Note: Date Diagnosed : 03/28/2020 10:02 AM (Z09) Not Available [facility] 4 02:46:41 Allergic rhinitis 93631290 Active 2019 Allergic rhinitis, unspecifi ed; Note: Date Diagnosed : 0 4:51 PM (J30.9) Not Available [facility] 4 02:46:38 Mixed conductiv e and sensorine ural hearing loss of right ear 74600996014 105 Active 2022 Mixed conductiv e and sensorine ural hearing loss, unilatera l, right ear with restricte d hearing on the contralat eral side; Note: Date Diagnosed : 12/04/2022 2:09 PM (H90.A31) Not Available [facility] 4 02:46:37 Sensorine ural hearing loss in left ear 59170964417 109 Active 2022 Sensorine ural hearing loss, unilatera l, left ear, with restricte d hearing on the contralat eral side; Note: Date Diagnosed : 12/04/2022 2:09 PM (H90.A22) Not Available [facility] 4 02:46:40 Acute serous otitis media of right ear 92165823596 21746 Active 2022 Acute serous otitis media, right ear; Note: Date Diagnosed : 12/04/2022 1:47 PM (H65.01) Not Available [facility] 4 02:46:39 Dysfuncti on of right eustachia n tube 80310279812 26905 Active 2023 Nevaeh Ketbraden chong, [facility] 4 13:33:40 Problem Notes None recorded. Procedures Surgical History Date Name Laterality Status Provider Name and Address Organization Details Recorded Time 01/11/20 24 Tympanometry - 47786 completed NELL WYLIE, AUD [facility] [place], [address], [facility] 01/11/2024 14:37:03 12/28/19 24 Tympanometry - 47767 completed CARLOS JENNINGSLISA, AUD 100 [facility] [place],[facility], [place], [address], [facility] 12/28/2023 13:38:00 Imaging Results None recorded. Procedure Notes None recorded. Medical Equipment None Reported. Allergies Allergen ID Allergen Name Allergen Category Reaction Reaction Severity Criticality Documentation Date Start Date Code Code System Note Provider Name and Address Organization Details Recorded Time [id number] amoxicill in medicatio n other Not available Not available 11/16/2023 723 RxNorm React ion: unkno wn, unspe cifie d;; Not Available [facility] 4 01:14:27 Medications Name Sig Start Date Stop Date Status Note LastModified by Organization Details LastModified Time carvedilo l 6.25 mg tablet TAKE 1 TABLET BY MOUTH TWICE A DAY active Not Available Not Available No t Available prednison e 10 mg tablet by mouth 12/04 completed Medicati on ID: [id number] P rescribe d By Name: Christina basilio [...] mg capsule 2019 active Medicati on ID: [id number] D uration Value: 10 Prescri bed By [...] drops Apply 2022 active Medicati on ID: [id number] B rand Name: ofloxaci n Send Method: E-Prescr ibed Sub s Allowed: subs OK Speci al Instruct ion: apply 5 drops to affected ear BID x 3 days Med icationG enericNa me: ofloxaci n Not Available Not Available Not Available benzonata te 200 mg capsule active Medicati on ID: 163730 B rand Name: benzonat ate Send Method: [...] mg tablet 02/21 completed Medicati on ID: [id number] D uration Value: 90 Reason: () Brand Name: nadolol Send Method: E-Prescr ibed Sub s Allowed: subs OK Medic ationGen ericName : nadolol Not Available Not Available Not Available doxycycli ne monohydra te 100 mg capsule 1 capsule by mouth 2019 active Medicati on ID: 654280 D uration Value: 10 Prescri bed By Name: Christina basilio MD Brand Name: doxycycl ine monohydr ate Send Method: E-Prescr ibed Sub s Allowed: subs OK Medic ationGen ericName : doxycycl ine monohydr ate Not Available Not Available Not Available lisinopri l 5 mg tablet active Medicati on ID: 405200 B rand Name: lisinopr il Send Method: E-Prescr ibed Sub s Allowed: subs OK Medic ationGen ericName : lisinopr il Not Available Not Available Not Available albuterol sulfate HFA 90 mcg/actua tion aerosol inhaler active Medicati on ID: [id number] B rand Name: albutero l sulfate Send Method: E-Prescr ibed Sub s Allowed: subs OK Medic ationGen ericName : albutero l sulfate Not Available Not Available Not Available fluticaso ne propionat e 50 mcg/actua tion nasal spray,[employer] pension active Medicati on ID: 749050 B rand Name: fluticas one propiona te Send Method: E-Prescr ibed Sub s Allowed: subs OK Medic ationGen ericName : fluticas one propiona te Not Available Not Available Not Available metformin ER 500 mg tablet,ex tended release 24 hr active Medicati on ID: 688689 B rand Name: metformi n Send Method: E-Prescr ibed Sub s Allowed: subs OK Medic ationGen ericName : metformi n Not Available Not Available Not Available doxycycli ne hyclate 100 mg tablet Take 1 tablet by mouth twice a day 2019 active Medicati on ID: 512527 D uration Value: 14 Prescri bed By Name: Christina basilio MD Brand Name: doxycycl ine hyclate Send Method: E-Prescr ibed Sub s Allowed: subs OK Medic ationGen ericName : doxycycl ine hyclate Not Available Not Available Not Available Bactrim DS 800 mg-160 mg tablet 1 tablet by mouth 2019 active Medicati on ID: 391710 D uration Value: 14 Prescri bed By Name: Christina basilio MD Brand Name: Bactrim DS Send Method: E-Prescr ibed Sub s Allowed: subs OK Medic ationGen ericName : Bactrim DS Not Available Not Available Not Available Vitals Date Recorded Body height Body mass index (BMI) Body weight Provider Name and Address Organization Details Last Updated DateTime 12/28/2023 171.45 cm 28.1 kg/m2 87768.81 g Mercy Cummins [place] - [facility] 12/28/2023 13:19:11 Date Recorded Body height Body mass index (BMI) Body weight Provider Name and Address Organization Details Last Updated DateTime 01/11/2024 171.45 cm 27.6 kg/m2 17437.03 g Mercy Cummins [place] - [facility] [...] Note 5503 NEVAEH REYEZ PA-C [facility] [address] [address] 12/28/2023 13:16:57 12/28/2023 13:55:34 Dysfunction of right eustachian tube 1715500780 100238 H69.91 Right Ear: Type A tympanogra m.Left Ear: Type A tympanogra m 6922 NEVAEH REYEZ PA-C [facility] [address] [address] 01/11/2024 14:12:25 01/11/2024 14:46:28 Dysfunction of right eustachian tube 9417205949 865255 H69.91 Left Ear: Type A tympanogra m. Right Ear: Type A tympanogra m. Health Concerns Section Related Observation LastModified by Organization Detai ls LastModified Time None Recorded Concern Status LastModified by Organization Details LastModified Time None Recorded Advance Directives Directive None Recorded Payers Insurance Date Sequence Insurance Name Policy Number Policy Reyes Covered Member ID Reyes Member ID Guarantor Name 01/08/2024 1 [facility] Liz Abdelrahman [id number] Liz Abdelrahman 01/08/2024 2 [place] [facility] Liz Abdelrahman [id number] Liz Abdelrahman Notes Date Note Type Note [...] tube was placed. YANNICK SAMPSON MD 100 [facility],[address], [address], [facility] [...] up a bit. CHRISTINA KIMBROUGH MD 100 [facility], [place], [address], [facility] 01/12/2024 08:26:13 OBGyn Episode No OBEpisode recorded.
--- OUTSIDE RECORDS SUMMARY | 2025-06-19 17:00 | XMS_ITS | Encounter Summary ---
Author Organization [facility] Address [address] [place] [address] Phone Care Team Providers Care Director Stage Name Role Phone Chaparro Alvarez MD Primary Care Provider [phone] Adam Sánchez MD Unavailable [phone] Jose Daniel Castellanos MD Unavailable [phone] Adam Sánchez MD Unavailable [phone] Chaparro Alvarez MD Primary Care Provider [phone] Encounter Details Date Type Department Care Team (Late st Contact Info) Description 03/21/2020 Procedure Pass OR Admitting Dept - [facility] Department [address] [place] [id number] Social History Tobacco Use Types Packs/Day Years [...] Time PHQ-2 Depression Total Score: 0 10/16/19 20 3:11 PM EDT documented as of this encounter Care Teams Director Stage Relationship Specialty Start Date End Date Chaparro Alvarez MD [address] [place] [address] [email or web address] PCP - General Internal Medicine 10/06/19 03/29/25 Chaparro Alvarez MD [address] [place] [address] [email or web address] PCP - General Internal Medicine 05/02/25 Adam Sánchez MD [address] [place] [address] Internal Medicine 04/18/20 08/30/22 Jose Daniel Castellanos MD [address] [place] [address] [email or web address] Otolaryngology 04/18/20 Adam Sánchez MD [address] [place] [address] Gastroenterology 08/31/22 documented as of this encounter Additional Source Comments The information contained in this document represents components of the legal health record. It is not the complete legal health record.[facility]
--- OUTSIDE RECORDS SUMMARY | 2025-06-19 17:00 | XMS_ITS | Encounter Summary ---
Author Organization [facility] Address [address] [place] [address] [place] [address] Phone Care Team Providers Care Prevention Specialist Name Role Phone Chaparro Alvarez MD Primary Care Provider [phone] Adam Sánchez MD Unavailable [phone] Jose Daniel Castellanos MD Unavailable [phone] Adam Sánchez MD Unavailable [phone] Chaparro Alvarez MD Primary Care Provider [phone] Encounter Details Date Type Department Care Team (Late st Contact Info) Description 10/21/2020 Procedure Pass [facility] [address] [place] [address] Social History Tobacco Use Types Packs/Day Years [...] documented as of this encounter Care Teams Prevention Specialist Relationship Specialty Start Date End Date Chaparro Alvarez MD [address] [place] [address] [email or web address] PCP - General Internal Medicine 10/06/19 03/29/25 Chaparro Alvarez MD [address] [place] [address] [email or web address] PCP - General Internal Medicine 05/02/25 Adam Sánchez MD [address] [place] [address] Internal Medicine 04/18/20 08/30/22 Jose Daniel Castellanos MD [address] [place] [address] [email or web address] Otolaryngology 04/18/20 Adam Sánchez MD [address] [place] [address] Gastroenterology 08/31/22 documented as of this encounter Additional Source Comments The information contained in this document represents components of the legal health record. It is not the complete legal health record.[facility]
== END ==
LOC: HO.CARD 13:03
PROVIDERS: PCP Nurse Practitioner Family; Visit Provider Nurse Practitioner Family
DX: M79.89 Other specified soft tissue disorders (principal)
CPT/HCPCS: 93306

== ENCOUNTER → 2025-06-19 13:06 | Outpatient (BNV) | payer MEDICARE, SELFPAY | PROVIDERS: PCP Nurse Practitioner Family; Visit Provider Internal Medicine Cardiovascular Disease | DX: I51.89 Other ill-defined heart diseases (principal) | CPT/HCPCS: 93306 ==

== ENCOUNTER 2025-06-21 11:21 | Outpatient (AMB) | payer MEDICARE, SELFPAY ==
--- NOTE | 2025-06-21 11:31 | A.OFFVIS_ITS ---
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/ murmur/ abn ekg /palps Intake Note: BOOKKEEPING ASSISTANT/ojeda/ Murmur/abn ekg/palps Child Protective Investigator Required: No Accompanied by: Self / Same As Patient Allergies vancomycin (VANCOMYCIN) Allergy (Intermediate, Verified 06/11/25 11:28) RASH, hives, hives, breathing adhesives Allergy (Unknown, Uncoded 06/11/25 11:28) rash Latex Allergy (Unknown, Uncoded 06/11/25 11:28) rash Medication List - Last Reconciled 06/21/25 by Yogesh Roberts MD plhrxudkfx-feocpgkjwxgqt-oijr 50-325-40 mg 1 tab PO Q6H PRN carvedilol 6.25 mg PO BID lisinopril 5 mg PO DAILY lorazepam 0.5 - 1 mg PO metformin ER 1,000 mg (2 x 500 mg) PO QPM onabotulinumtoxinA (Botox) units subcut spironolactone 25 mg PO DAILY HPI Comments Details: [age] year female with background history of cirrhosis of liver secondary to RUSH, hypertension and diabetes presenting for assessment of lower extremity edema which has been few months ago. She said that she had lower extremity edema and she was started on spironolactone with improvement in the edema. She has known history of hypertension and was taking carvedilol and lisinopril. 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 She said when she had lower extremity edema she did not have any orthopnea or PND. She did not have any dyspnea with activities. No chest discomfort. No dizziness or lightheadedness or syncope in the past. Blood pressure has been good and well controlled. She is tolerating medications. EKG from May 2025 reviewed showing sinus rhythm at 67 beats per minute, normal axis, occasional premature ventricular complexes. QTC was mildly prolonged at 05:02 milliseconds. Echocardiography performed 06/19/2025 showing hyperdynamic left ventricular function with EF more than 70% and normal diastolic function. Normal right ventricular size and function. No significant valvular pathology. No pulmonary hypertension given history of cirrhosis. [facility] Medical History Hx of migraine headaches Osteoporosis Cirrhosis Diabetes Hypertension Kidney stones Surgical History History of carpal tunnel surgery of right wrist History of carpal tunnel surgery of left wrist Hx of cholecystectomy H/O: hysterectomy Family History Mother Breast cancer Sister Breast cancer Social History Housing: Apartment Alcohol intake: never Patient Tobacco Use Status: Never used Tobacco e-Cigarette/Vaping Use: Never Used Second Hand Smoke Exposure: No service: No Current occupational status: retired Current occupational exposures/hazards: No Cognitive needs: No Hearing needs: No Vision needs: Yes Review of Systems Const Denies chills, Denies fatigue, Denies fever(s), Denies frequent falls, Denies weakness, Denies weight gain and Denies weight loss ENT Denies dizziness Card Denies chest pain, Denies leg edema, Denies lightheadedness, Denies palpitations, Denies dyspnea, Denies dyspnea on exertion and Denies orthopnea Resp Denies cough, Denies dyspnea and Denies dyspnea on exertion GI Denies bloating and Denies change in bowel habits Musc Denies muscle weakness, Denies numbness and Denies tingling Neuro Denies dizziness, Denies frequent falls, Denies numbness, Denies tingling and Denies weakness Endo Denies fatigue and Denies palpitations Physical Exam Vital Signs: Last Vital Signs Pulse 67 06/21/25 11:32 BP 122/64 06/21/25 11:32 BMI result Body Mass Index 26.3 GENERAL APPEARANCE: in no acute distress, pleasant. NECK: no carotid bruit, no jugular venous distention. SKIN: no suspicious lesions, warm and dry. HEART: no murmurs, regular rate and rhythm. LUNGS: clear to auscultation bilaterally. ABDOMEN: soft, nontender. EXTREMITIES: no edema. PERIPHERAL PULSES: equal. NEUROLOGIC: No gross deficits, AAO X 3 Assessment & Plan Assessment & Plan (1) Hypertension: Code(s): I10 - Essential (primary) hypertension Category: Medical Qualifiers: Hypertension type: primary hypertension Qualified Code(s): I10 - Essential (primary) hypertension (2) QT prolongation: Code(s): R94.31 - Abnormal electrocardiogram [ECG] [EKG] Category: Medical (3) Swelling of both lower extremities: Code(s): M79.89 - Other specified soft tissue disorders Category: Medical Plan Pleasant 65 year lady who is here for episode of lower extremity edema. She did not have any concomitant dyspnea, orthopnea or PND and clinically was not in heart failure. She has known history of cirrhosis which can be potential reason for the edema and luckily this has improved with spironolactone and she does not have any significant edema anymore. Clinically euvolemic at this point. No murmur by examination. Echocardiography has shown hyperdynamic left ventricular function. Right ventricular size and function is normal. PA pressure is also normal. She had mildly prolonged QT interval on her EKG previously. Monitor potassium and magnesium closely. Please check for interactions before adding any new medications or antibiotics. She has no symptoms currently and never had syncope before. I think currently nothing different needs to be done. We will closely monitor for any symptoms. She will see us back in 6 months. Thank you for allowing me to participate in the care of your patient. Please feel free to contact me if you have any questions. Coding Level of Care Code New Pt Level 4 (75320) Diagnoses Primary hypertension I10 Hypertension type: primary hypertension QT prolongation R94.31 Swelling of both lower extremities M79.89
[2025-06-21 11:32] VITALS: BP 122/64; PULSE 67; BMI 26.3
--- OUTSIDE RECORDS SUMMARY | 2025-06-21 14:57 | XMS_ITS | Patient Health Record ---
Author Organization [facility] Address [address] [place] [address] Care Team Providers Care Business Development Professional Name Role Phone Ajay Glez MD Primary Care Provider Unavailnegro e Black, Perla Unavailable [phone] Allergies Allergen (clinical drug ingredient) Drug/Non Drug [...] 1 tablet Orally Once a day Active Qrvnystmio-ZUO-Hqckgvaw 50-325-40 MG 1 capsule as needed Orally every 4 hrs Active Gabapentin 300 MG 1 capsule Orally Thr ee times a day Active Parking . . . .; Duration: . 12/17/2014 Active Naproxen 375 375 MG 1 tablet Orally Thre e times daily with food; Duration: 30 day(s) 12/17/2014 Active Problems No Known Problems Plan Of Treatment Pending Test Test Name Order Date ,L6450-OUH TENDON SHEATH/LIGAMENT 1 Insurance Providers Payer Name Payer Address Payer Phone Subscriber Number Group Number Insured Name Patient Relationship to Insured Coverage Start Date Coverage End Date [employer] [address] [place] [address] [phone] [id number] Liz Quick Self - patient is the insured Medical (General) History Medical History History ICD Code Headaches High blood pressure Chicken pox Surgical History Surgery Date(Month/Year) carpal tunnel surgery both hands 2004 hysterectomy 11/23/2011 eye surgery 06/18/2012 eye surgery 06/01/2012
--- OUTSIDE RECORDS SUMMARY | 2025-06-21 14:57 | XMS_ITS | Data Portability ---
Author Organization [place] - [facility], Allergy Address [address] [place] [address] Assessment Encounter Date Assessment Date Assessment LastModified [...] Organization Details Recorded Time General unsteadin ess 862370484 Active 2018 Unsteadin ess on feet; Note: Date Diagnosed : 02/21/2019 4:04 PM (R26.81) Not Available [facility] 4 02:46:44 Sensorine ural hearing loss of bilateral ears 171340352 Active 2018 Sensorine ural hearing loss, bilateral ; Note: Date Diagnosed : 02/21/2019 4:05 PM (H90.3) Not Available [facility] 4 02:46:40 Dizziness and giddiness 103474956 Active 2018 Dizziness and giddiness ; Note: Date Diagnosed : 02/21/2019 4:04 PM (R42) Light-h eadedness ; Note: Date Diagnosed : 02/21/2019 4:04 PM (R42) Not Available [facility] 4 02:46:39 Chronic sinusitis 26084740 Active 2018 Other chronic sinusitis ; Note: Date Diagnosed : 02/28/2019 12:20 PM (J32.8) Not Available [facility] 4 02:46:43 Headache 98821369 Active 2018 Headache; Note: Date Diagnosed : 03/29/2019 9:00 AM (R51) Facial pain NOS; Note: Date Diagnosed : 02/21/2019 4:04 PM (R51) ; Start Date : 9 Not Available [facility] 4 02:46:40 Recurrent aphthous stomatiti s 991184808 Active 2018 Aphthous stomatiti s (major) (minor); Note: Date Diagnosed : 9 2:15 PM (K12.0) Not Available [facility] 4 02:46:37 Recurrent acute sinusitis 373735515 Active 2019 Other acute recurrent sinusitis ; Note: Date Diagnosed : 09/12/2019 9:14 AM (J01.81) Not Available [facility] 4 02:46:43 Localized swelling of head 14298920791 888542 Active 2019 Localized swelling, mass and lump, head; Note: Date Diagnosed : 09/12/2019 9:09 AM (R22.0) Not Available [facility] 4 02:46:37 Chronic pansinusi tis 20541480 Active 2019 Chronic pansinusi tis; Note: Date Diagnosed : 12/08/2019 3:22 PM (J32.4) Not Available [facility] 4 02:46:43 Acute serous otitis media of left ear 20173806509 58877 Active 2019 Acute serous otitis media, left ear; Note: Date Diagnosed : 02/16/2020 1:44 PM (H65.02) Not Available [facility] 4 02:46:41 Follow-up visit Active 2019 Encounter for follow-up examinati on after completed treatment for condition s other than malignant neoplasm; Note: Date Diagnosed : 03/28/2020 10:02 AM (Z09) Not Available [facility] 4 02:46:41 Allergic rhinitis 18147289 Active 2019 Allergic rhinitis, unspecifi ed; Note: Date Diagnosed : 0 4:51 PM (J30.9) Not Available [facility] 4 02:46:38 Mixed conductiv e and sensorine ural hearing loss of right ear 03077651376 105 Active 2022 Mixed conductiv e and sensorine ural hearing loss, unilatera l, right ear with restricte d hearing on the contralat eral side; Note: Date Diagnosed : 12/04/2022 2:09 PM (H90.A31) Not Available [facility] 4 02:46:37 Sensorine ural hearing loss in left ear 96232210409 109 Active 2022 Sensorine ural hearing loss, unilatera l, left ear, with restricte d hearing on the contralat eral side; Note: Date Diagnosed : 12/04/2022 2:09 PM (H90.A22) Not Available [facility] 4 02:46:40 Acute serous otitis media of right ear 89442250160 63280 Active 2022 Acute serous otitis media, right ear; Note: Date Diagnosed : 12/04/2022 1:47 PM (H65.01) Not Available [facility] 4 02:46:39 Dysfuncti on of right eustachia n tube 04640776221 91932 Active 2023 Nevaeh Ketbraden chong, [facility] 4 13:33:40 Problem Notes None recorded. Procedures Surgical History Date Name Laterality Status Provider Name and Address Organization Details Recorded Time 01/11/20 24 Tympanometry - 57694 completed NELL WYLIE, AUD [facility] [place],[address], [address], [facility] 01/11/2024 14:37:03 12/28/19 24 Tympanometry - 19877 completed CARLOS JENNINGSLISA, AUD [address] [facility] [place],[facility], [place], [address], [facility] 12/28/2023 13:38:00 Imaging Results None recorded. Procedure Notes None recorded. Medical Equipment None Reported. Allergies Allergen ID Allergen Name Allergen Category Reaction Reaction Severity Criticality Documentation Date Start Date Code Code System Note Provider Name and Address Organization Details Recorded Time 637515 amoxicill in medicatio n other Not available Not available 11/16/2023 723 RxNorm React ion: unkno wn, unspe cifie d;; Not Available [facility] 4 01:14:27 Medications Name Sig Start Date Stop Date Status Note LastModified by Organization Details LastModified Time carvedilo l 6.25 mg tablet TAKE 1 TABLET BY MOUTH TWICE A DAY active Not Available Not Available No t Available prednison e 10 mg tablet by mouth 12/04 completed Medicati on ID: 747525 P rescribe d By Name: Christina basilio [...] mg capsule 2019 active Medicati on ID: 264299 D uration Value: 10 Prescri bed By [...] drops Apply 2022 active Medicati on ID: 144615 B rand Name: ofloxaci n Send Method: E-Prescr ibed Sub s Allowed: subs OK Speci al Instruct ion: apply 5 drops to affected ear BID x 3 days Med icationG enericNa me: ofloxaci n Not Available Not Available Not Available benzonata te 200 mg capsule active Medicati on ID: 602683 B rand Name: benzonat ate Send Method: [...] mg tablet 02/21 completed Medicati on ID: 372328 D uration Value: 90 Reason: () Brand Name: nadolol Send Method: E-Prescr ibed Sub s Allowed: subs OK Medic ationGen ericName : nadolol Not Available Not Available Not Available doxycycli ne monohydra te 100 mg capsule 1 capsule by mouth 2019 active Medicati on ID: 930624 D uration Value: 10 Prescri bed By Name: Christina basilio MD Brand Name: doxycycl ine monohydr ate Send Method: E-Prescr ibed Sub s Allowed: subs OK Medic ationGen ericName : doxycycl ine monohydr ate Not Available Not Available Not Available lisinopri l 5 mg tablet active Medicati on ID: 671404 B rand Name: lisinopr il Send Method: E-Prescr ibed Sub s Allowed: subs OK Medic ationGen ericName : lisinopr il Not Available Not Available Not Available albuterol sulfate HFA 90 mcg/actua tion aerosol inhaler active Medicati on ID: 549033 B rand Name: albutero l sulfate Send Method: E-Prescr ibed Sub s Allowed: subs OK Medic ationGen ericName : albutero l sulfate Not Available Not Available Not Available fluticaso ne propionat e 50 mcg/actua tion nasal spray,[employer] active Medicati on ID: 150693 B rand Name: fluticas one propiona te Send Method: E-Prescr ibed Sub s Allowed: subs OK Medic ationGen ericName : fluticas one propiona te Not Available Not Available Not Available metformin ER 500 mg tablet,ex tended release 24 hr active Medicati on ID: 742382 B rand Name: metformi n Send Method: E-Prescr ibed Sub s Allowed: subs OK Medic ationGen ericName : metformi n Not Available Not Available Not Available doxycycli ne hyclate 100 mg tablet Take 1 tablet by mouth twice a day 2019 active Medicati on ID: 869659 D uration Value: 14 Prescri bed By Name: Christina basilio MD Brand Name: doxycycl ine hyclate Send Method: E-Prescr ibed Sub s Allowed: subs OK Medic ationGen ericName : doxycycl ine hyclate Not Available Not Available Not Available Bactrim DS 800 mg-160 mg tablet 1 tablet by mouth 2019 active Medicati on ID: 877459 D uration Value: 14 Prescri bed By Name: Christina basilio MD Brand Name: Bactrim DS Send Method: E-Prescr ibed Sub s Allowed: subs OK Medic ationGen ericName : Bactrim DS Not Available Not Available Not Available Vitals Date Recorded Body height Body mass index (BMI) Body weight Provider Name and Address Organization Details Last Updated DateTime 12/28/2023 171.45 cm 28.1 kg/m2 48722.81 g Mercy Cummins [place] - [facility] 12/28/2023 13:19:11 Date Recorded Body height Body mass index (BMI) Body weight Provider Name and Address Organization Details Last Updated DateTime 01/11/2024 171.45 cm 27.6 kg/m2 72167.03 g Mercy Cummins [place] - [facility] 01/11/2024 14:15:39 Social History None recorded. Functional [...] Note 5503 NEVAEH REYEZ PA-C [facility] [address] [address] 12/28/2023 13:16:57 12/28/2023 13:55:34 Dysfunction of right eustachian tube 2862399051 918529 H69.91 Right Ear: Type A tympanogra m.Left Ear: Type A tympanogra m 6922 NEVAEH REYEZ PA-C [facility] [address] [address] 01/11/2024 14:12:25 01/11/2024 14:46:28 Dysfunction of right eustachian tube 0021815206 112350 H69.91 Left Ear: Type A tympanogra m. Right Ear: Type A tympanogra m. Health Concerns Section Related Observation LastModified by Organization Detai ls LastModified Time None Recorded Concern Status LastModified by Organization Details LastModified Time None Recorded Advance Directives Directive None Recorded Payers Insurance Date Sequence Insurance Name Policy Number Policy Reyes Covered Member ID Reyes Member ID Guarantor Name 01/08/2024 1 [facility] Liz Abdelrahman [id number] Liz Abdelrahman 01/08/2024 2 [place]: [facility] Liz Abdelrahman [id number] Liz Abdelrahman Notes Date Note Type Note [...] tube was placed. YANNICK SAMPSON MD 100 [facility],[address], [address], [facility] - [facility] 12/29/2023 21:36:13 01/11/2024 text/html ROS as noted [...] up a bit. CHRISTINA KIMBROUGH MD 100 [facility], [place], [address], [facility] 01/12/2024 08:26:13 OBGyn Episode No OBEpisode recorded.
--- OUTSIDE RECORDS SUMMARY | 2025-06-21 14:57 | XMS_ITS | Data Portability ---
Author Organization ROGELIO [facility], [address] Address [address] [place] [address] Care Team Providers Care Field Account Manager Name Role Phone JEAN JOSEPH Primary Care Provider [phone] Assessment No assessment recorded. Plan of Treatment Reminders Order Date Submit Date Provider Last Modified By Organization Details Last Modified Time Details Appointments None recorded. Lab rapid SARS CoV 2 Ag, QL IA, respiratory specimen 2022 023 [facility], [address] [place] [address], [address], 3 12:11:49 Referral None recorded. Procedures None recorded. Surgeries None recorded. Imaging None recorded. Medication Orders benzonatate 200 mg capsule 2022 023 [place] [id number], [address] [place], [place], [phone], 3 12:11:58 prednisone 20 mg tablet 2022 023 [place] [id number], [address] [place], [place], [id number], 3 12:11:57 albuterol sulfate HFA 90 mcg/actuati on aerosol inhaler 2022 023 [place] [facility] #[id number], [address] [place], [place], [phone], 3 12:11:56 Allergy Relief (fluticason e) 50 mcg/actuati on nasal spray,suspe nsion 2022 023 [id number], [address] [place], [place], [phone], 12:11:57 Patient TargetsNo targets recorded. Patient Instructions Encounter Date Encounter Id Patient Instructions Last Modified By Organization Details Last Modified Time 08/17/2022 [id number] cough: care instructions [email or web address] Not available 08/17/2022 [...] care for yourself at home? Take an odnp-rss-tnshgkz pain medicine. Avoid Ibuprofen, Aleve and Aspirin if . If the doctor prescribed antibiotics, take them as directed. Do not stop taking them just because you feel better. You need to take the full course of antibiotics. Be careful when taking dfju-mry-yolqjvg cold or influenza (flu) medicines and Tylenol [...] wear a mask. For travel guidance, see [facility] s Travel webpage. Do not travel. Stay [...] masking (see below). For travel guidance, see [facility] s Travel webpage. Not available 08/17/2022 12:10:54 Reason for Referral None Reported. Results Created Date Observation Date Name Description Value Unit Range Abnormal Flag Note LastModifiedBy Organization Detail LastModifiedTime 08/17/19 23 08/17/2022 rapid SARS CoV 2 Ag, QL IA, respi rator y speci men Unknown Analyte Normal =Negat parul Not Available [facility] [place], [address], 08/17/2022 11:42:53 08/17/1908/17/2022 rapid SARS CoV 2 Ag, QL IA, respi rator y speci men Unknown Analyte negati ve Not Available [address] [address] [place], [address], 08/17/2022 11:42:53 Result Notes None recorded. Problems Name Problem SNOMED Code Status Onset Date Resolution Date Notes Provider Name and Address Organization Details Recorded Time Hypertensive disorder 19595908 Active 2022 ROGELIO [place] - [facility] 3 11:38:17 Cirrhosis of liver 25229710 Active 2022 Sylvia chong [facility] - [facility] [...] Name and Address Organization Details Recorded Time 312020 vancomyci n medicatio n anaphylax is Not available Not available 08/17/2022 84302 RxNorm Sylvia hcong [facility] 3 11:34:58 Medications Name [...] e) 50 mcg/actuati on nasal spray,suspe nsion Cable 1 spray twice a day by intranasa [...] Updated DateTime 3 170.18 cm 29.3 kg/m2 38136.7 7 g 0 98 % 72 /min 18 /min 97.6 [degF] 117/80 mm[Hg] Sylvia Manzano [employer] [facility] 3 11:42:03 Social History Question Answer Notes LastModified by [employer] Details LastModified Time Tobacco Smoking Status Never Smoker ROGELIO [facility] 08/17/2022 11:39:32 Have You Recently Traveled Abroad? No Information not available 08/17/2022 Sex: Unknown Functional Status Question Answer Note LastModified by [facility] Details LastModified Time Do you use [...] [facility] 08/17/2022 11:34:42 Pneumococcal conjugate PCV20, polysaccharide EPL405 conjugate, adjuvant, PF 2 completed Sylvia Monfette [...] ICD10 Code Diagnosis IMO Codes Diagnosis Note [id number] [address] [address] [place] [address] 07/26/2021 09:27:31 07/26/2021 10:26:49 [id number] [facility] [address] [place] [address] 03/12/2018 09:59:03 03/12/2018 11:14:21 [id number] [address] [place] [address] 11/26/2016 18:44:26 11/26/2016 19:14:47 [id number] [address] [address] [place] [address] 02/02/2018 16:56:21 02/02/2018 17:20:23 [id number] [address] [address] [place] [address] 07/23/2018 10:12:25 07/23/2018 12:12:54 [id number] [address] [address] [place] [address] 12/17/2018 10:55:50 12/17/2018 12:06:40 [id number] [address] [place] [address] 01/20/2015 09:55:44 01/20/2015 10:58:31 [id number] Ted Early NP [address] [place] [address] 08/17/2022 09:10:01 08/17/2022 12:14:16 Exposure to SARS-CoV-2 783100892 Z20.822 Acute sinusitis 48355397 J01.90 Acute bronchitis 7542116 2 J20.9 Health Concerns Section Related Observation LastModified by Organization Detai ls LastModified Time None Recorded Concern Status LastModified by Organization Details LastModified Time None Recorded Advance Directives Directive None Recorded Payers Insurance Date Sequence Insurance Name Policy Number Policy Reyes Covered Member ID Reyse Member ID Guarantor Name 08/17/2022 1 [facility] [id number] Liz R Abdelrahman [id number] Liz R Abdelrahman 08/17/2022 1 [facility] TYPE I (HMO) [id number] Liz R Abdelrahman [id number] Liz R Abdelrahman 08/17/2022 1 [facility] [id number] Liz R Abdelrahman [id number] Liz R Abdelrahman Notes Date Note Type Note Provider Name and Address Organization Details Recorded Time 08/17/2022 text/html CongestionReport ed by Patientnasal congestion with post nasal drip x 3 days. denies nay fever or fever with chills. no SOB or respiratory distress. CoughReported by Patient Ted Early NP [address] [place], [address], [place] - [facility] 08/17/2022 12:12:51 OBGyn Episode No OBEpisode recorded.
== END 2025-06-21 12:10 | disposition home or self-care (01) ==
LOC: HO.HCS 11:22
PROVIDERS: PCP Nurse Practitioner Family; Visit Provider Internal Medicine Cardiovascular Disease
DX: I10 Essential (primary) hypertension (principal); R94.31 Abnormal electrocardiogram [ECG] [EKG]; M79.89 Other specified soft tissue disorders
CPT/HCPCS: 99204

== ENCOUNTER → 2025-06-21 11:21 | Outpatient (BNVA) | payer MEDICARE, SELFPAY | PROVIDERS: PCP Nurse Practitioner Family; Visit Provider Internal Medicine Cardiovascular Disease | DX: I10 Essential (primary) hypertension (principal); R01.1 Cardiac murmur, unspecified; R00.2 Palpitations; R94.31 Abnormal electrocardiogram [ECG] [EKG]; M79.89 Other specified soft tissue disorders | CPT/HCPCS: 99202 ==